=== PATIENT | male | born 1945 | race Caucasian/White ===

== ENCOUNTER 2019-11-13 18:14 | Inpatient (IN) | payer OTHER ==
--- NOTE | 2019-11-13 19:09 | PDOC ---
History of Present Illness - General Chief Complaint: Pain, Acute Stated Complaint: ABDOMINAL PAIN Time Seen by Provider: 11/13/19 19:06 History Source: Patient Exam Limitations: Clinical Condition - History of Present Illness Initial Comments: Hx limited bc patient is a poor historian Per [facility] Supervisor: left facility for dialysis. Amy doesn't know why he was sent here. Patient came straight from dialysis. Bill Camejo is a 73 yo M w a hx of ESRD (M/W/F), AFIB on elliquis, heart failure, anemia of chronic disease, HTN, HLD, constipation, and anxiety who p resents from dialysis after a completed session because he has abdominal pain. The patient states his abdomen has been swelling increasingly for the past week. When asked where is the worst abdominal pain he points to the right lateral/upper quadrant regions in his abdomen and rates the pain as 10/10. He states he had a cat scan done 2 weeks prior which showed he had some type of liver disease but his abdomen has become twice as large in the past 2 weeks. The patient endorses being scared that he has a liver tumor. Patient also reports that he has been experiencing increasingly dark stools over the past 2 weeks described as black in nature. States his stools have also been very soft and he is having loose dark stools 3-5 times per day. Patient repeatedly states that he is very hungry and would like to eat some food but he is scared to eat because of his stomach pain. Denies weight loss, fevers, chills, infections. Denies headache, neck pain, blurry vision, chest pain, SOB, or difficulty breathing. Denies dysuria, frequency, or urgency. PCP: Juan Turner PSH: RUPA AV Fistula Allergies: NKA, NKDA Social Hx: [facility] resident. Denies smoking, drinking, or other substance abuse Advanced Directives: DNR/DNI Past History - Medical History Allergies/Adverse Reactions: Allergies Allergy/AdvReac Type Severity Reaction Status Date / Time No Known Allergies Allergy Verified 11/13/19 18:22 Anemia: Yes Cardiac Disorders: Yes (afib) COPD: No Dialysis: Yes (m,w,f) HTN: Yes Hypercholesterolemia: Yes - Psycho-Social/Smoking History Smoking History: Former smoker Have you smoked in the past 12 months: No Information on smoking cessation initiated: No - Substance Abuse Hx (Audit-C & DAST Scrn) How often the patient has a drink containing alcohol: Never Score: In Men: 4 or > Positive; In Women: 3 or > Positive: 0 Screen Result (Pos requires Nsg. Audit-10AR): Negative In the last yr the pt used illegal drug/Rx for NonMed reason: No Score: Yes response is considered Positive: 0 Screen Result (Positive result requires Nsg. DAST-10): Negative Review of Systems - Review of Systems Able to Perform ROS?: Yes Comments:: CONSTITUTIONAL: Present: Fatigue Absent: fever, no chills EYES: Absent: visual changes ENT: Absent: ear pain, no sore throat CARDIOVASCULAR: Absent: chest pain, no palpitations RESPIRATORY: Absent: cough, no SOB GI: Present: Abdominal pain, nausea, diarrhea Absent: no vomiting, no constipation GENITOURINARY: Absent: dysuria, no frequency, no hematuria MUSKULOSKELETAL: Absent: back pain, no arthralgia, no myalgia SKIN: Absent: rash NEURO: Absent: headache *Physical Exam - Vital Signs Last Vital Signs Temp Pulse Resp BP Pulse Ox 97.4 F L 102 H 20 107/48 L 97 11/13/19 18:22 11/13/19 18:22 11/13/19 18:22 11/13/19 18:22 11/13/19 18:22 - Physical Exam GENERAL: Appears pale and weak. No active distress. Has a large abdomen. LUE AV fistula HEENT: Normocephalic, atraumatic. PERRL, EOM intact. CARDIOVASCULAR: Irregular rhythm. Normal S1, S2. PULMONARY: No evidence of respiratory distress. Lungs clear to auscultation bilaterally. No wheezing, rales or rhonchi. ABDOMEN: The abdomen is distended with Right upper and lateral TTP. There is a fluid wave in the abdomen. The patient has generalized abdominal discomfort but the abdomen has normal bowel sounds, is soft and not peritoneal. No rebound, guarding, or rigidity. EXTREMITIES: Normal ROM in all four extremities. LUE AV fistula SKIN: Warm, dry. Multiple petechial rashes. NEUROLOGICAL: No focal neurological deficits. Rectal Exam: positive: heme negative stool, normal rectal tone, hemorrhoids, other (The patient experiences pain upon finger entry into the rectum. There are external hemorrhoids, no internal hemorrhoids appreciated. The rectal vault has no palpable stool in it. After 3 deep attempts to retrieve stool to send to lab for hemeoccult without success rectal vault residue was placed on the hemeoccult card and sent to laboratory) ED Treatment Course - LABORATORY CBC & Chemistry Diagram: 11/13/19 19:49 11/13/19 19:49 Medical Decision Making - Medical Decision Making Hx limited bc patient is a poor historian [employer] [facility] at [facility] - [phone] Per [facility] Nursing [facility] Supervisor: left facility for dialysis. [facility] doesn't know why he was sent here. Patient came straight from dialysis. Bill Camejo is a 73 yo M w a hx of ESRD (M/W/F), AFIB on elliquis, heart failure, anemia of chronic disease, HTN, HLD, constipation, and anxiety who presents from dialysis after a completed session because he has abdominal pain. The patient states his abdomen has been swelling increasingly for the past week. When asked where is the worst abdominal pain he points to the right lateral/upper quadrant regions in his abdomen and rates the pain as 10/10. He states he had a cat scan done 2 weeks prior which showed he had some type of liver disease but his abdomen has become twice as large in the past 2 weeks. The patient endorses being scared that he has a liver tumor. Patient also reports that he has been experiencing increasingly dark stools over the past 2 weeks described as black in nature. States his stools have also been very soft and he is having loose dark stools 3-5 times per day. Patient repeatedly states that he is very hungry and would like to eat some food but he is scared to eat because of his stomach pain. Denies weight loss, fevers, chills, infections. Denies headache, neck pain, blurry vision, chest pain, SOB, or difficulty breathing. Denies dysuria, frequency, or urgency. Vital Signs Temp Pulse Resp BP Pulse Ox 97.4 F L 102 H 20 107/48 L 97 11/13/19 18:22 11/13/19 18:22 11/13/19 18:22 11/13/19 18:22 11/13/19 18:22 DDx IBNLT: cirrhosis, ascites, SBP, liver metastasis, cholecystitis, dehydration, failure to thrive, metastases, electrolyte/metabolic disturbance, peritonitis, anemia Plan: Labs, CT, analgesia, re-assess EKG: Afib with RVR, ventricular rate of 108, narrow complexes, qrs 98, normal axis, no hypertrophy, no ST elevations or depressions, QTc 514 CBC,CMP WBC 6.8 K/mm3 (4.0-10.0) 11/13/19 19:49 RBC 3.45 M/mm3 (4.00-5.60) L 11/13/19 19:49 Hgb 9.6 GM/dL (11.7-16.9) L 11/13/19 19:49 Hct 31.1 % (35.4-49) L 11/13/19 19:49 MCV 90.0 fl (80-96) 11/13/19 19:49 MCH 27.9 pg (25.7-33.7) 11/13/19 19:49 MCHC 31.0 g/dl (32.0-35.9) L 11/13/19 19:49 RDW 17.8 % (11.9-15.9) H 11/13/19 19:49 Plt Count 180 K/MM3 (134-434) 11/13/19 19:49 MPV 9.5 fl (7.5-11.1) 11/13/19 19:49 Absolute Neuts (auto) 5.4 K/mm3 (1.5-8.0) 11/13/19 19:49 Neutrophils % 79.0 % (42.8-82.8) 11/13/19 19:49 Lymphocytes % 10.4 % (8-40) 11/13/19 19:49 Monocytes % 5.0 % (3.8-10.2) 11/13/19 19:49 Eosinophils % 4.8 % (0-4.5) H 11/13/19 19:49 Basophils % 0.8 % (0-2.0) 11/13/19 19:49 Nucleated RBC % 0 % (0-0) 11/13/19 19:49 Sodium 138 mmol/L (136-145) 11/13/19 19:49 Potassium 3.8 mmol/L (3.5-5.1) 11/13/19 19:49 Chloride 100 mmol/L (98-107) 11/13/19 19:49 Carbon Dioxide 19 mmol/L (21-32) L 11/13/19 19:49 Anion Gap 19 MMOL/L (8-16) H 11/13/19 19:49 BUN 48.1 mg/dL (7-18) H 11/13/19 19:49 Creatinine 7.5 mg/dL (0.55-1.3) H* 11/13/19 19:49 Est GFR (CKD-EPI)AfAm 7.54 11/13/19 19:49 Est GFR (CKD-EPI)NonAf 6.50 11/13/19 19:49 Random Glucose 75 mg/dL (74-106) 11/13/19 19:49 Lactic Acid 6.4 mmol/L (0.4-2.0) H* 11/13/19 19:49 Calcium 8.8 mg/dL (8.5-10.1) 11/13/19 19:49 Magnesium 2.6 mg/dL (1.8-2.4) H 11/13/19 19:49 Total Bilirubin 1.5 mg/dL (0.2-1) H 11/13/19 19:49 AST 310 U/L (15-37) H 11/13/19 19:49 ALT 91 U/L (13-61) H 11/13/19 19:49 Alkaline Phosphatase 857 U/L (45-117) H 11/13/19 19:49 Total Protein 6.3 g/dl (6.4-8.2) L 11/13/19 19:49 Albumin 2.5 g/dl (3.4-5.0) L 11/13/19 19:49 Lipase 268 U/L (73-393) 11/13/19 19:49 - Lactic acid elevated, Patient has abdominal pain, currently in AFIB, will obtain CTA to r/o mesenteric ischemia - Patient needs CTA with contrast despite having elevated Cr. - Patient can undergo dialysis tomorrow as an inpatient CTA: EXAM: ABDOMEN/PELVIS CTA W/WO CONTR HISTORY: Rule out mesenteric ischemia COMPARISON: None. FINDINGS: Lung bases are clear. The visualized cardiac chambers are normal size and configuration. Small to moderate amount of ascites is noted. Innumerable lesions in the liver highly suspicious for metastases. No biliary duct dilation or portal vein thrombosis. Tiny gallstones are noted without gallbladder inflammation. A heterogeneous area in the posterior lateral spleen could represent a lesion or infarct. Severe right renal atrophy is noted with irregular rim-like density in the central collecting system, unclear of dystrophic calcification or possibly surgical material. Normal pancreas, adrenal glands and left kidney. The stomach and abdominal small and large bowel are normal. There is no aortic aneurysm. Moderate retroperitoneal lymphadenopathy is suspicious for metastases. There is also mild to moderate mesenteric adenopathy. Splenic artery vascular calcifications are noted. The pelvic small and large bowel are normal. There is no evidence of appendicitis. The urinary bladder and prostate gland are normal. There is mild pelvic lymphadenopathy. IMPRESSION: Suspected diffuse liver metastases. Probable metastatic retroperitoneal adenopathy with possible metastatic mesen teric and pelvic lymphadenopathy. Small to moderate amount of ascites without abscess or free air. Possible splenic lesion or splenic infarct. Tiny gallstones. Severe right renal atrophy. 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
[2019-11-13] MEDS ORDERED: LACTATED RINGERS SOLUTION 1000 ML INFUS.BAG IV ONE (19:11)
--- NOTE | 2019-11-13 19:14 | PDOC ---
Documentation entered by Rand Roe SCRIBE, acting as scribe for Bebe Miranda MD. Bebe Miranda MD: This documentation has been prepared by the Radha denny Sydney, SCRIBE, under my direction and personally reviewed by me in its entirety. I confirm that the documentation accurately reflects all work, treatment, procedures, and medical decision making performed by me. Attending Attestation - Resident Resident Name: Dhruv Braga - ED Attending Attestation I have performed the following: I have examined & evaluated the patient, The case was reviewed & discussed with the resident, I agree w/resident's findings & plan, Exceptions are as noted - HPI HPI: 11/13/19 19:10 This 73 yo male came from [facility] dialysis because he told staff he has had 1 week of abdominal pain and dark stools .Pt resides at [facility] - Physicial Exam PE: 11/13/19 19:12 Conversant 73 yo male with c/o of dark stools and one week of abdominal distention but is requesting food stating he is hungry. 11/13/19 19:14 head ncat neck supple lungs cta b/l cvs abd distended - Medical Decision Making 11/13/19 19:39 pt is alert but not a good historian . 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
[2019-11-13] MEDS ORDERED: FAMOTIDINE 20 MG/50 ML IVPB 20 MG/50 ML MG IVPB ONE ×3 (20:33→20:40)
[2019-11-13 21:22] LABS: BASO % 0.8 % (0-2.0); EOS % 4.8 % (0-4.5); HEMATOCRIT 31.1 % (35.4-49); HEMOGLOBIN 9.6 GM/dL (11.7-16.9); LYMPH % 10.4 % (8-40); MCH 27.9 pg (25.7-33.7); MEAN PLT VOLUME 9.5 fl (7.5-11.1); PLATELET COUNT 180 K/MM3 (134-434); RBC 3.45 M/mm3 (4.00-5.60); RDW 17.8 % (11.9-15.9); WHITE BLOOD COUNT 6.8 K/mm3 (4.0-10.0)
[2019-11-13 22:02] LABS: ALBUMIN 2.5 g/dl (3.4-5.0); BILIRUBIN,TOTAL 1.5 mg/dL (0.2-1); BLOOD UREA NITROGEN 48.1 mg/dL (7-18); CALCIUM 8.8 mg/dL (8.5-10.1); MAGNESIUM 2.6 mg/dL (1.8-2.4); POTASSIUM 3.8 mmol/L (3.5-5.1); TOT PROT 6.3 g/dl (6.4-8.2)
[2019-11-13 22:06] LABS: CREATININE 7.5 mg/dL (0.55-1.3)
[2019-11-14] MEDS ORDERED: morphine CARPU-JECT 4 MG/1 ML DISP.SYRIN IVPUSH ONE (01:27)
[2019-11-14] MEDS ORDERED: MORPHINE SULFATE 2 MG/ML VIAL ONE ×2 (01:48→06:27)
--- NOTE | 2019-11-14 01:48 | PN ---
Teaching Attending Note Name of Resident: Omega Peters ATTENDING PHYSICIAN STATEMENT I saw and evaluated the patient. I reviewed the resident's note and discussed the case with the resident. I agree with the resident's findings and plan as documented. SUBJECTIVE: Patient is a 73 year old man resident of [facility] with a PMH of ESRD on hemodialysis (M/W/F), Afib (on Eliquis), CHF, ?Developmentally challenged, ?Congenital solitary left kidney, Anemia, HTN, HLD, Constipation and Anxiety who presents from dialysis after a completed session because he has abdominal pain. The patient states his abdomen has been swelling increasingly for the past week. When asked where is the worst abdominal pain he points to the right lateral/uppe r quadrant regions in his abdomen and rates the pain as 10/10. He states he had a CAT scan done 2 weeks prior which showed he had some type of liver disease but his abdomen has become twice as large in the past 2 weeks. He has also been ingesting a lot of Tylenol for the pain. Patient also reports that he has been experiencing increasingly dark stools over the past 2 weeks described as black in nature. States his stools have also been very soft and he is having loose dark stools 3-5 times per day. Patient repeatedly states that he is very hungry and would like to eat some food but he is scared to eat because of his stomach pain. Denies weight loss, fevers, chills, headache, neck pain, blurry vision, chest pain, SOB, difficulty breathing, dysuria, frequency, or urgency. Ex-smoker. Denies alcohol, tobacco or illicit drug use. No sick contacts or recent travels. Has family history of lung cancer in both parents. OBJECTIVE: Alert Vital Signs Period Temp Pulse Resp BP Sys/Calvert Pulse Ox Last 24 Hr 97.4 F 102 20 107/48 97-98 HEENT: No Jaundice, eye redness or discharge, PERRLA, EOMI. Normocephalic, atraumatic. Poor dentition. External ears are normal and hearing is grossly intact. No nasal discharge. Neck: Supple, nontender. No palpable adenopathy or thyromegaly. No JVD Chest: Good effort. Clear to auscultation and percussion. Heart: Regular. No S3, rub or murmur Abdomen: Distended, diffuse tenderness most marked in the epigastrium and RUQ; +hepatosplenomagal; No rebound or guarding. Normal bowel sounds. Ext: Peripheral pulses intact. No leg edema. Left upper arm AV fistula with thrill and bruit; left metatarsal amputation. Skin: Warm and dry. No petechiae, rash or ecchymosis. Neuro: Alert. Oriented x3. CN 2-12 grossly intact. Sensation grossly intact in all four extremities and DTR are symmetric. Psych: Appropriate mood and affect. Good insight. Abnormal Lab Results 11/13/19 11/13/19 11/13/19 19:49 19:49 19:49 RBC 3.45 L Hgb 9.6 L Hct 31.1 L MCHC 31.0 L RDW 17.8 H Eosinophils % 4.8 H Carbon Dioxide 19 L Anion Gap 19 H BUN 48.1 H Creatinine 7.5 H* Lactic Acid 6.4 H* Magnesium 2.6 H Total Bilirubin 1.5 H AST 310 H ALT 91 H Alkaline Phosphatase 857 H Total Protein 6.3 L Albumin 2.5 L Home Medications Medication Instructions Recorded Acetaminophen [Tylenol 8 Hour] 650 mg PO BID 11/14/19 Acetaminophen [Tylenol] 975 mg PO Q8H PRN 11/14/19 Apixaban [Eliquis -] 5 mg PO BID 11/14/19 Ascorbic Acid [Vitamin C] 1,000 mg PO DAILY 11/14/19 Atorvastatin Calcium [Lipitor] 20 mg PO HS 11/14/19 Bupropion HCl [Bupropion HCl Sr] 150 mg PO DAILY 11/14/19 Docusate Sodium [Colace] 300 mg PO HS 11/14/19 Ferrous Sulfate 325 mg PO DAILY 11/14/19 Gabapentin [Neurontin] 300 mg PO DAILY 11/14/19 Loperamide HCl [Imodium -] 2 mg PO DAILY PRN 11/14/19 Oxycodone HCl 10 mg PO Q6H PRN 11/14/19 Polyethylene Glycol 3350 [Miralax 17 gm PO DAILY 11/14/19 (For Daily Use) -] Sennosides [Senna] 8.6 mg PO HS 11/14/19 Sevelamer Carbonate [Renvela] 1,600 mg PO QID 11/14/19 Vitamin B Comp W-C [Nephro-Desi -] 1 tablet PO DAILY 11/14/19 Zinc Sulfate 220 mg PO DAILY 11/14/19 Current Medications Generic Name Dose Route Start Last Admin Trade Name Freq PRN Reason Stop Dose Admin Atorvastatin Calcium 20 mg 11/14/19 22:00 Lipitor - PO HS UDAY Docusate Sodium 300 mg 11/14/19 22:00 Colace - PO HS UDAY Gabapentin 300 mg 11/14/19 10:00 Neurontin - PO DAILY UDAY Piperacillin Sod/Tazobactam 50 mls @ 100 mls/hr 11/14/19 03:30 Sod 2.25 gm/ Dextrose IVPB Q6H-IV UDAY Protocol Vancomycin HCl 1,250 mg/ 250 mls @ 250 mls/2 hr 11/14/19 03:45 Dextrose IVPB 11/14/19 05:44 ONCE ONE Piperacillin Sod/Tazobactam 50 mls @ 100 mls/hr 11/14/19 03:45 11/14/19 03:58 Sod 2.25 gm/ Dextrose IVPB 11/14/19 21:29 100 mls/hr Q6H-IV UDAY Administration Protocol Morphine Sulfate 2 mg 11/14/19 03:46 Morphine Injection - IVPUSH 11/14/19 03:47 ONCE ONE Multivit/Ca Carb/B Cmplx/FA/Prenat 1 tablet 11/14/19 10:00 Nephro-Desi - PO DAILY [facility] Non-Formulary Medication 150 mg 11/14/19 10:00 Bupropion Hcl [Bupropion Hcl Sr] PO DAILY [facility] Non-Formulary Medication 325 mg 11/14/19 10:00 Ferrous Sulfate [Ferrous Sulfate] PO DAILY [facility] Non-Formulary Medication 1,000 mg 11/14/19 10:00 Ascorbic Acid PO DAILY [facility] Oxycodone HCl 10 mg 11/14/19 03:47 Roxicodone - PO Q6H PRN PAIN LEVEL 7 - 10 Polyethylene Glycol 17 gm 11/14/19 10:00 Miralax (For Daily Use) - PO DAILY [facility] Senna tab 11/14/19 22:00 Senna - PO HS [facility] Sevelamer Carbonate 1,600 mg 11/14/19 10:00 Renvela - PO QID UDAY Zinc Sulfate 220 mg 11/14/19 10:00 Zinc Sulfate PO DAILY [facility] ASSESSMENT AND PLAN: 1. Hepatic lesions - possible metastasis/Ascites/ESRD - CT abdomen/pelvis shows "Suspected diffuse liver metastases. Probable metastatic retroperitoneal adenopathy with possible metastatic mesenteric and pelvic lymphadenopathy. Small to moderate amount of ascites without abscess or free air. Possible splenic lesion or splenic infarct. Tiny gallstones. Severe right renal atrophy." CXR shows cardiomegaly with no evidence of acute lung disease. Lactic acidosis is likely type B, due to hepatic lesions, but sepsis due to peritonitis is a concern - especially with low normal BP. Will consult Interventional radiology for diagnostic/therapeutic paracentesis/?lymph node biopsy, do blood cultures, treat with IV Zosyn and Vancomycin (dose-adjusted for GFR), get Acetaminophen level, HIV test, PT/INR, Hepatitis serology, trend LFTs, consult Oncology, ID and GI. Viral testing for COVID-19 ordered and patient placed on airborne, droplet and contact isolation. ER staff prescribed Morphine, Pepcid and IV Ringers lactate for the patient. Will avoid further IV LR in view of liver disease and lactic acidosis. EKG shows Afib at 108/minute and QTc [address]-T wave changes. Will avoid drugs that may prolong QTc. Will continue comprehensive care for all of patients comorbid conditions and consult Nephrology for ESRD care - needs hemodialysis tomorrow in view of severe metabolic acidosis and inability to hydrate aggressively with IV NS. 2. Hypoalbuminemia - Possibly due to combined effects of malnutrition and inflammation associated with comorbid conditions. Will ensure adequate dietary protein intake and also consult radar technician. 3. Anemia - Likely chiefly due to ESRD. Will do basic anemia work up including serial stool guaiacs, reticulocyte count and iron studies. Would benefit from Procrit therapy once iron replete. 4. Hypertension Will restart suitable outpatient antihypertensive drugs when clinically appropriate. Subsequently, will revise regimen to ensure [id number] excellent BP control. Patient counseled on the injurious effects of uncontrolled hypertension. Nonpharmacologic measures to control hypertension like weight loss, salt restriction and exercise stressed. Importance of adherence to treatment regimen and attainment of normotension emphasized. 5. DVT prophylaxis - On Eliquis for Afib - will hold tomorrow for ?procedures and begin ?IV heparin tomorrow. 6. Advance directives - DNR/DNI
[2019-11-14] MEDS ORDERED: CEFTRIAXONE 1,000 MG in DEXTROSE 5%-WATER - 50 ML IVPB ONE (01:59)
[2019-11-14] MEDS ORDERED: CEFTRIAXONE 1 GM in DEXTROSE 5%-WATER - 50 ML IVPB ONE (02:24)
[2019-11-14] MEDS ORDERED: CEFTRIAXONE 1 GM/50 ML BAG ONE (02:28)
--- NOTE | 2019-11-14 03:11 | HP ---
CHIEF COMPLAINT: Abdominal Pain PCP: Dr. Juan Turner Bias Machine Operator: Dr. Kraig Nayak HISTORY OF PRESENT ILLNESS: Pt. is a 73 y.o. M w/ PMHx. of ESRD (M/W/F), Afib (on Eliquis), Anemia (2/2 ESRD and JACQUIE), HTN, HLD, PAD (s/p amputation), Heart Failure?, constipation and anxiety presents from [facility](Lives as [facility]) for abdominal pain. Pt. states he completed his usual 3.5 hours of HD and that his pain is not affected by food, or HD, only positional when he tries to sit up and contracts his abdomen. Pt. states that he has had abdominal pain for over [address] had a CT scan done 2 weeks ago that showed liver lesions? Call placed to [facility] as Pt. is an unreliable historian(states that he cannot read, can only write his name and was made fun of as a kid for developmental delay?) and RN stated that Pt. had ultrasound of liver which showed a liver cyst. RN was unable to say who performed liver US. Pt. has also been complaining pf increasingly dark stools that are now black in nature and happening 3-5x/day. Pt. is unsure how long he has been on Iron supplementation but after chart review Pt. gets IV Venofer (weekly) and Epogen (3x/ week) respectively. Pt. states that he was born with 1 kidney and is unsure of why he developed renal failure. He states he has been on HD for about a year though chart review states he is on HD from at least 2017. Pt. endorses epigastric burning sensation on arrival that got better after medication. Pt. denies any, weight loss, chest pain, shortness of breath, pain on urination(oliguric), fever chills, cough, headache, changes in vision, worsening numbness tingling. Pt. states that he would like to be DNR/DNI. Pt. states he had an unremarkable colonoscopy 5 years ago. Pt. denies history of Hepatitis Pt. states Bonita( his Goddaughter) is his HCP? Guardian? and will make decisions for him in the event that he cannot make decision for himself. Pt. requesting to talk to . ER course was notable for: (1) CBC, CMP, Mag, Phos (2) Famotidine, 500cc LR, 2mg Morphine (3) CTA/P Recent Travel: No as above PAST MEDICAL HISTORY: As above PAST SURGICAL HISTORY: LUE AVF, LLE amputation to metatarsals 1.5 years ago at [facility] Social History: Smoking: States smoked ~1PPD, Quit many, many years ago Alcohol: Denies Drugs: Denies Allergies No Known Allergies Allergy (Verified 11/13/19 18:22) HOME MEDICATIONS: Home Medications Medication Instructions Recorded Acetaminophen [Tylenol 8 Hour] 650 mg PO BID 11/14/19 Acetaminophen [Tylenol] 975 mg PO Q8H PRN 11/14/19 Apixaban [Eliquis -] 5 mg PO BID 11/14/19 Ascorbic Acid [Vitamin C] 1,000 mg PO DAILY 11/14/19 Atorvastatin Calcium [Lipitor] 20 mg PO HS 11/14/19 Bupropion HCl [Bupropion HCl Sr] 150 mg PO DAILY 11/14/19 Docusate Sodium [Colace] 300 mg PO HS 11/14/19 Ferrous Sulfate 325 mg PO DAILY 11/14/19 Gabapentin [Neurontin] 300 mg PO DAILY 11/14/19 Loperamide HCl [Imodium -] 2 mg PO DAILY PRN 11/14/19 Oxycodone HCl 10 mg PO Q6H PRN 11/14/19 Polyethylene Glycol 3350 [Miralax 17 gm PO DAILY 11/14/19 (For Daily Use) -] Sennosides [Senna] 8.6 mg PO HS 11/14/19 Sevelamer Carbonate [Renvela] 1,600 mg PO QID 11/14/19 Vitamin B Comp W-C [Nephro-Desi -] 1 tablet PO DAILY 11/14/19 Zinc Sulfate 220 mg PO DAILY 11/14/19 REVIEW OF SYSTEMS As above PHYSICAL EXAMINATION Vital Signs - 24 hr 11/13/19 11/13/19 11/14/19 18:22 21:57 02:06 Temperature 97.4 F L 97.7 F Pulse Rate 102 H Pulse Rate [ 97 H Left Radial] Respiratory 20 18 Rate Blood Pressure 107/48 L Blood Pressure 96/61 [Right Arm] O2 Sat by Pulse 97 98 98 Oximetry (%) GENERAL: Awake, alert, and fully oriented, in no acute distress. HEAD: Normal with no signs of trauma. EYES: Pupils equal, round and reactive to light, extraocular movements intact, sclera anicteric, conjunctiva clear. No lid lag. EARS, NOSE, THROAT: Ears normal, nares patent, oropharynx clear without exudates. Moist mucous membranes. LUNGS: Breath sounds equal, clear to auscultation bilaterally. No wheezes, and no crackles. No accessory muscle use. HEART: Irregular, normal S1 and S2 without murmur ABDOMEN: Soft, tenderness to palpation in epigastrium (most prominent) and RUQ, distended, dull to percussion hypoactive bowel sounds, no guarding, no rebound, no masses. Marked hepatomegaly (extends to ASIS?) and splenomegaly. MUSCULOSKELETAL: Normal range of motion at all joints. Left foot metarasal amputation. No CVA tenderness. UPPER EXTREMITIES: 2+ radial pulses, warm, well-perfused. No cyanosis. No clubbing. No peripheral edema. LOWER EXTREMITIES: pulses not palpated, cool to touch, No calf tenderness. 1+ edema. NEUROLOGICAL: Normal speech. Normal gait. PSYCHIATRIC: Cooperative. Good eye contact. Appropriate mood and affect. SKIN: Warm, dry, normal turgor, no rashes or lesions noted, normal capillary refill. Laboratory Results - last 24 hr 11/13/19 11/13/19 11/13/19 19:49 19:49 19:49 WBC 6.8 RBC 3.45 L Hgb 9.6 L Hct 31.1 L MCV 90.0 MCH 27.9 MCHC 31.0 L RDW 17.8 H Plt Count 180 MPV 9.5 Absolute Neuts (auto) 5.4 Neutrophils % 79.0 Lymphocytes % 10.4 Monocytes % 5.0 Eosinophils % 4.8 H Basophils % 0.8 Nucleated RBC % 0 Sodium 138 Potassium 3.8 Chloride 100 Carbon Dioxide 19 L Anion Gap 19 H BUN 48.1 H Creatinine 7.5 H* Est GFR (CKD-EPI)AfAm 7.54 Est GFR (CKD-EPI)NonAf 6.50 Random Glucose 75 Lactic Acid 6.4 H* Calcium 8.8 Magnesium 2.6 H Total Bilirubin 1.5 H AST 310 H ALT 91 H Alkaline Phosphatase 857 H Total Protein 6.3 L Albumin 2.5 L Lipase 268 Stool Occult Blood Blood Type Antibody Screen 11/13/19 11/13/19 19:49 19:49 WBC RBC Hgb Hct MCV MCH MCHC RDW Plt Count MPV Absolute Neuts (auto) Neutrophils % Lymphocytes % Monocytes % Eosinophils % Basophils % Nucleated RBC % Sodium Potassium Chloride Carbon Dioxide Anion Gap BUN Creatinine Est GFR (CKD-EPI)AfAm Est GFR (CKD-EPI)NonAf Random Glucose Lactic Acid Calcium Magnesium Total Bilirubin AST ALT Alkaline Phosphatase Total Protein Albumin Lipase Stool Occult Blood Negative Blood Type A NEGATIVE Antibody Screen Negative ASSESSMENT/PLAN: Pt. is a 73 y.o. M w/ PMHx. of ESRD (M/W/F), Afib (on Eliquis), Anemia (2/2 ESRD and JACQUIE), HTN, HLD, PAD (s/p amputation), constipation and anxiety presents from [facility](Lives as [facility]) for abdominal pain. #Abdominal Pain w/ Transaminitis likely secondary to stretching of the hepatic and splenic capsules with referred pain, possibly contribution of ascites, and hypoerfusion during HD; cannot r/o infectious etiology CTAP w/wo contrast: Includes innumerable liver lesions suspicious for metastases, tiny gallstones w/o evidence for cholecystitis, severe R. renal atrophy with dystrophic calcification?, lateral splenic lesion vs. infarct, splenic artery calcification mild to moderate retoperitoneal lymphadenopathy, mild pelvic lymphadenopathy, and small to moderate ascites; f/u official read as I appreciated some colonic wall thickening. GI Consult appreciated for evaluation of liver, liver biopsy? MRI of liver? IR Consult appreciated for therapeutic and diagnostic paracentesis, biopsy of lymph nodes? HOLD Eliquis in AM, will need to determine pending specialist consults if Pt. to be placed on Hep gtt as a bridge until procedure or resume Eliquis Given Ceftriaxone in ED, will start on Zosyn and Vancomycin, renally dosed for positive sepsis criteria (LA: 6.4 and tachycardia); ID Consult appreciated Pain control with home oxycodone f/u Heme/Onc consult for evaluation of Mets and localization of Primary f/u Acetaminophen level (per RN at [facility] Pt. gets Tylenol 975mg Q8H for pain and Tylenol 650 mg scheduled everytime he gets changed f/u Hepatitis Panel f/u PT/INR f/u BCx. f/u [place] #ESRD (MWF) Born with solitary kidney? Pt. received HD Wednesday, however received IV contrast Nephrology consult appreciated, may need HD today Dystrophic calcification noted on CT Scan, Renal Cell Carcinoma? Sarcoma? Instrumentation from a surgical procedure? c/w home medications #Anemia #Afib #HTN #HLD #PAD #Constipation #Anxiety #Hx. of Heart Failure? c/w home medications except Tylenol because of transaminitis EKG: Abib w/ RVR, HR: 103, QTc: 514, no ST segment elevation or depression; avoid QTc prolonging agents Trop Neg f/u Records faxed to [facility] as ED fax machine broken CXR shows cardiomegaly, no acute pathology as Pt. had poor inspiration. #FEN no IVF, given bolus in ED monitor electrolytes and replete as needed Renal Diet #DVT Ppx. Hold Eliquis in anticipation of biopsy, Needs urgent addressing in AM to start Hep gtt or resume AC Eliquis has shown non-inferiority to Dalteparin in trials ([place] 06/2019) Visit type - Emergency Visit Emergency Visit: Yes ED Registration Date: 11/13/19 Care time: The patient presented to the Emergency Department on the above date and was hospitalized for further evaluation of their emergent condition. - New Patient This patient is new to me today: Yes Date on this admission: 11/13/19 - Critical Care Critical Care patient: No ATTENDING PHYSICIAN STATEMENT I saw and evaluated the patient. I reviewed the resident's note and discussed the case with the resident. I agree with the resident's findings and plan as documented. SUBJECTIVE: OBJECTIVE: ASSESSMENT AND PLAN:
[2019-11-14] MEDS ORDERED: PIPERACILLIN/TAZOB 2.25 GM 2.25 GM in DEXTROSE 5%-WATER - 50 ML IVPB SCH ×2 (03:30→21:45)
[2019-11-14] MEDS ORDERED: oxyCODONE HCL 5 MG TABLET PO PRN ×2 (03:44→03:47)
[2019-11-14] MEDS ORDERED: VANCOMYCIN HCL 1,250 MG in DEXTROSE 5%-WATER - 250 ML IVPB ONE (03:45)
[2019-11-14] MEDS ORDERED: MORPHINE SULFATE 2 MG/ML VIAL IVPUSH ONE (03:46)
[2019-11-14] MEDS ORDERED: PIPERACILLIN/TAZOB 2.25 GM 2.25 GM/50 ML BAG IVPB ONE ×2 (03:52→08:14)
[2019-11-14] MEDS: PIPERACILLIN/TAZOB 2.25 GM 2.25 GM in DEXTROSE 5%-WATER - 50 ML IVPB SCH ×4 (03:58→21:49)
[2019-11-14] MEDS ORDERED: VANCOMYCIN 1 GRAM (PRE-DOCKED) 1,000 MG/250 ML BAG IVPB ONE (04:16)
[2019-11-14 07:32] LABS: EOS % 2.3 % (0-4.5); HEMATOCRIT 32.8 % (35.4-49); HEMOGLOBIN 9.8 GM/dL (11.7-16.9); LYMPH % 7.3 % (8-40); MCHC 29.8 g/dl (32.0-35.9); MEAN CELL VOLUME 94.1 fl (80-96); MEAN PLT VOLUME 9.3 fl (7.5-11.1); MONO % 5.1 % (3.8-10.2); NEUT % 84.3 % (42.8-82.8); PLATELET COUNT 171 K/MM3 (134-434); RBC 3.49 M/mm3 (4.00-5.60); RDW 17.9 % (11.9-15.9); WHITE BLOOD COUNT 8.9 K/mm3 (4.0-10.0)
[2019-11-14 07:45] LABS: INR 2.72 (0.83-1.09); PROTHROMBIN TIME (PATIENT) 32.4 SEC (9.7-13.0)
[2019-11-14 07:56] LABS: ALBUMIN 2.4 g/dl (3.4-5.0); BILIRUBIN,TOTAL 1.2 mg/dL (0.2-1); BLOOD UREA NITROGEN 52.2 mg/dL (7-18); CALCIUM 8.6 mg/dL (8.5-10.1); MAGNESIUM 2.7 mg/dL (1.8-2.4); PHOSPHOROUS 5.6 mg/dL (2.5-4.9); POTASSIUM 4.4 mmol/L (3.5-5.1)
[2019-11-14 08:04] LABS: CREATININE 8.2 mg/dL (0.55-1.3)
--- NOTE | 2019-11-14 08:14 | CON.GI ---
Consult Consult Specialty:: GI Referred by:: Hospitalist Service Reason for Consultation:: Abd. Pain - History of Present Illness Chief Complaint: Abd. pain History of Present Illness: 73M admitted to evaluation of abdominal pain. Mr. Camejo states that this has been occurring for quite some time. He alludes to having an US performed while in [facility] that showed "spots on the liver". Per H&P, Nurse at [facility] stated that as cyst was seen. Denies diminished appetite. Pain is not post prandial. States that his stool has been dark for a while and is maintained on oral iron. Noted guaiac negative from specimen sent to lab. He takes eliquis, which he believes he took yesterday. There is no family history of colorectal cacner or other GI malignancy. CTA was performed revealing a liver with innumerable lesions. The radiologist described this as almost complete replacement of the liver with metastatic disease. Upper abdominal lymphadenopathy seen as well and areas of colon wall thickening of unclear etiology. Bill states that he had a colonoscopy 5 years ago that was OK. He does not want further endoscopic evaluations, wants to be DNR/DNI and is OK having liver biopsy performed. - History Source History Provided By: Patient, Medical Record Limitations to Obtaining History: No Limitations - Past Medical History Cardio/Vascular: Yes: AFIB, HTN Renal/: Yes: Other (ESRD on HD M/W/F) - Past Surgical History Additional Surgical History: Left foot toe amputations - Alcohol/Substance Use Hx Alcohol Use: Yes (prior social use) History of Substance Use: reports: None - Smoking History Smoking history: Former smoker Have you smoked in the past 12 months: No - Social History Usual Living Arrangement: [facility] ADL: Support Services Occupation: Worked at [employer] Place of : [employer] History of Recent Travel: No Home Medications - Allergies Allergies/Adverse Reactions: Allergies Allergy/AdvReac Type Severity Reaction Status Date / Time No Known Allergies Allergy Verified 11/13/19 18:22 - Home Medications Home Medications: Ambulatory Orders Acetaminophen [Tylenol 8 Hour] 650 mg PO BID 11/14/19 Acetaminophen [Tylenol] 975 mg PO Q8H PRN 11/14/19 Apixaban [Eliquis -] 5 mg PO BID 11/14/19 Ascorbic Acid [Vitamin C] 1,000 mg PO DAILY 11/14/19 Atorvastatin Calcium [Lipitor] 20 mg PO HS 11/14/19 Bupropion HCl [Bupropion HCl Sr] 150 mg PO DAILY 11/14/19 Docusate Sodium [Colace] 300 mg PO HS 11/14/19 Ferrous Sulfate 325 mg PO DAILY 11/14/19 Gabapentin [Neurontin] 300 mg PO DAILY 11/14/19 Loperamide HCl [Imodium -] 2 mg PO DAILY PRN 11/14/19 Oxycodone HCl 10 mg PO Q6H PRN 11/14/19 Polyethylene Glycol 3350 [Miralax (For Daily Use) -] 17 gm PO DAILY 11/14/19 Sennosides [Senna] 8.6 mg PO HS 11/14/19 Sevelamer Carbonate [Renvela] 1,600 mg PO QID 11/14/19 Vitamin B Comp W-C [Nephro-Desi -] 1 tablet PO DAILY 11/14/19 Zinc Sulfate 220 mg PO DAILY 11/14/19 Family Medical History Other Family History: Mother: : 100: Old age. Father: : 65: Lung Ca. Sister: : 74: Lung Ca. No children. No family history of colorectal cancer or other GI malignancy Review of Systems - Review of Systems Constitutional: denies: Chills, Unintentional Wgt. Loss Cardiovascular: denies: Chest Pain Respiratory: denies: Cough Gastrointestinal: reports: Abdominal Pain, Constipation. denies: Diarrhea, Rectal Bleeding Physical Exam-GI Vital Signs: Vital Signs Temperature 97.5 F L 11/14/19 06:00 Pulse Rate 108 H 11/14/19 07:32 Respiratory Rate 18 11/14/19 07:32 Blood Pressure 97/57 L 11/14/19 07:32 O2 Sat by Pulse Oximetry (%) 97 11/14/19 07:32 Constitutional: Yes: Calm Eyes: No: Sclera Icterus HENT: Yes: Drooling Cardiovascular: Yes: Pulse Irregular Respiratory: Yes: Diminished (At bases bilaterally with poor inspiratory effort) Gastrointestinal Inspection: No: Distention ...Auscultate: Yes: Normoactive Bowel Sounds ...Palpate: Yes: Hepatomegaly (indurated irregular liver), Soft, Tenderness (TTP RUQ) ...Percussion: No: Tympanitic ...Rectal Exam: Yes: Other (No external lesions, no masses, no stool/b lood/melena) Extremities: Yes: Other (Left foot with TMA) Edema: No (No LE edema) Neurological: Yes: Alert Labs: CBC, BMP 11/14/19 06:11 11/14/19 06:11 INR, PTT INR 2.72 (0.83-1.09) H 11/14/19 06:11 Hepatic Panel Total Bilirubin 1.2 mg/dL (0.2-1) H 11/14/19 06:11 AST 339 U/L (15-37) H 11/14/19 06:11 ALT 92 U/L (13-61) H 11/14/19 06:11 Alkaline Phosphatase 743 U/L (45-117) H 11/14/19 06:11 Albumin 2.4 g/dl (3.4-5.0) L 11/14/19 06:11 Imaging - Results Cat Scan: Report Reviewed, Image Reviewed Problem List - Problems (1) Metastasis Assessment/Plan: Significant metastatic disease of the liver: Liver chemistry pattern of elevated ALP significantly out of proportion to bilirubin reflective of the liver's tumor burden as opposed to obstructive biliary process Advise: Oncology evaluation Tumor markers: CEA, AFP, CA-19-9 Agreeable to liver biopsy when Eliquis effect has worn off Code(s): C79.9 - SECONDARY MALIGNANT NEOPLASM OF UNSPECIFIED SITE Qualifiers: Area of secondary neoplastic involvement: retroperitoneum Qualified Cod e(s): 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 Unclear what baseline hemoglobin is. He does not want endoscopic evaluations. No overt bleeding on exam. Protonix 20mg once daily Problems reviewed: Yes Code(s): D64.9 - ANEMIA, UNSPECIFIED
[2019-11-14] MEDS ORDERED: ASCORBIC ACID 1,000 MG TABLET ONE (08:15)
[2019-11-14] MEDS ORDERED: FERROUS SO4 325 MG TABLET (FP) ONE (08:16)
[2019-11-14] MEDS ORDERED: ZINC SULFATE 220 MG CAPSULE (FP) ONE (08:16)
[2019-11-14] MEDS ORDERED: GABAPENTIN 100 MG CAPSULE ONE (08:16)
[2019-11-14] MEDS: SEVELAMER CARBONATE 800 MG TAB (FP) PO SCH ×4 (09:00→22:08)
[2019-11-14] MEDS: POLYETHYLENE GLYCOL 3350 119 GM BTL PO SCH (09:01)
[2019-11-14] MEDS: FERROUS SO4 325 MG TABLET (FP) PO SCH (09:01)
[2019-11-14] MEDS: ZINC SULFATE 220 MG CAPSULE (FP) PO SCH (09:02)
[2019-11-14] MEDS: VITAMIN B COMP W-C 1 EA TABLET (NEPHRO-VITE) PO SCH (09:02)
[2019-11-14] MEDS: GABAPENTIN 300 MG CAPSULE PO SCH (09:02)
[2019-11-14] MEDS: ASCORBIC ACID 1,000 MG TABLET PO SCH (09:02)
[2019-11-14] MEDS ORDERED: PATIENT'S OWN MEDICATION (NON-FORMULARY) (Ferrous Sulfate [Ferrous Sulfate] 325 MG) PO SCH (10:00)
[2019-11-14] MEDS ORDERED: ASCORBIC ACID 1000 MG PO SCH (10:00)
[2019-11-14] MEDS ORDERED: PATIENT'S OWN MEDICATION (NON-FORMULARY) (Bupropion Hcl [Bupropion Hcl Sr] 150 MG) PO SCH (10:00)
--- NOTE | 2019-11-14 10:13 | EKG ---
Test Reason : Blood Pressure : / mmHG Vent. Rate : 108 BPM Atrial Rate : 234 BPM P-R Int : 000 ms QRS Dur : 098 ms QT Int : 384 ms P-R-T Axes : 000 065 010 degrees QTc Int : 514 ms ATRIAL FIBRILLATION WITH RAPID VENTRICULAR RESPONSE NONSPECIFIC T WAVE ABNORMALITY ABNORMAL ECG NO PREVIOUS ECGS AVAILABLE Confirmed by Willy Iverson MD ([id number]) on 11/14/2019 10:12:32 AM Referred By: Confirmed By:Willy Iverson MD
--- NOTE | 2019-11-14 14:15 | PN ---
Progress Note, Physician Chief Complaint: Abdominal pain History of Present Illness: NAD denies any pain c/o heartburn Seen by GI CTAP multiple liver lesions likely metastatic disease - Current Medication List Current Medications: Active Medications Ascorbic Acid (Vitamin C) 1,000 mg PO DAILY [facility] Last Admin: 11/14/19 09:02 Dose: 1,000 mg Documented by: Bupropion HCl (Wellbutrin Xl -) 150 mg PO DAILY [facility] Last Admin: 11/14/19 09:02 Dose: 150 mg Documented by: Docusate Sodium (Colace -) 300 mg PO HS [facility] Ferrous Sulfate (Feosol -) 325 mg PO DAILY [facility] Last Admin: 11/14/19 09:01 Dose: 325 mg Documented by: Gabapentin (Neurontin -) 300 mg PO DAILY [facility] Last Admin: 11/14/19 09:02 Dose: 300 mg Documented by: Piperacillin Sod/Tazobactam (Sod 2.25 gm/ Dextrose) 50 mls @ 100 mls/hr IVPB Q6H-IV [facility]; Protocol Piperacillin Sod/Tazobactam (Sod 2.25 gm/ Dextrose) 50 mls @ 100 mls/hr IVPB Q6H-IV [facility]; Protocol Stop: 11/14/19 21:29 Last Admin: 11/14/19 09:01 Dose: 100 mls/hr Documented by: Multivit/Ca Carb/B Cmplx/FA/Prenat (Nephro-Desi -) 1 tablet PO DAILY [facility] Last Admin: 11/14/19 09:02 Dose: 1 tablet Documented by: Oxycodone HCl (Roxicodone -) 10 mg PO Q6H PRN PRN Reason: PAIN LEVEL 7 - 10 Polyethylene Glycol (Miralax (For Daily Use) -) 17 gm PO DAILY [facility] Last Admin: 11/14/19 09:01 Dose: Not Given Documented by: Senna (Senna -) 2 tab PO HS [facility] Sevelamer Carbonate (Renvela -) 1,600 mg PO TIDCM [facility] Last Admin: 11/14/19 09:00 Dose: 1,600 mg Documented by: Sevelamer Carbonate (Renvela -) 1,600 mg PO 2100 [facility] Zinc Sulfate (Orazinc -) 220 mg PO DAILY [facility] Last Admin: 11/14/19 09:02 Dose: 220 mg Documented by: - Objective Vital Signs: Vital Signs Temperature 98.0 F 11/14/19 10:58 Pulse Rate 101 H 11/14/19 10:58 Respiratory Rate 17 11/14/19 11:53 Blood Pressure 111/47 L 11/14/19 10:58 O2 Sat by Pulse Oximetry (%) 98 11/14/19 11:53 Constitutional: Yes: Well Nourished, No Distress, Calm Cardiovascular: Yes: Regular Rate and Rhythm Respiratory: Yes: Regular, CTA Bilaterally Gastrointestinal: Yes: Normal Bowel Sounds, Soft, Ascites, Tenderness (diffuse) Genitourinary: Yes: WNL Musculoskeletal: Yes: WNL Extremities: Yes: Amputation (left TMA) Edema: No Peripheral Pulses WNL: Yes Neurological: Yes: Alert, Oriented Psychiatric: Yes: Alert, Oriented Labs: CBC, BMP 11/14/19 06:11 11/14/19 06:11 INR, PTT INR 2.72 (0.83-1.09) H 11/14/19 06:11 Problem List - Problems (1) Liver metastasis Assessment/Plan: -Oncology consult -Liver biopsy -GI consult -Tumor markers -MRI abd Problems reviewed: Yes Code(s): C78.7 - SECONDARY MALIG NEOPLASM OF LIVER AND INTRAHEPATIC BILE DUCT (2) Abdominal pain Assessment/Plan: -PPI -Pain management with acetaminophen Problems reviewed: Yes Code(s): R10.9 - UNSPECIFIED ABDOMINAL PAIN Qualifiers: Abdominal location: generalized Qualified Code(s): R10.84 - Generalized abdominal pain (3) Anemia Assessment/Plan: -Likely 2/2 to liver disease + CKD -Check B12, thyroid+ iron -Stool OB negative -Monitor trend, transfuse only if Hg<7.0 to avoid fluid overload Problems reviewed: Yes Code(s): D64.9 - ANEMIA, UNSPECIFIED Assessment/Plan See problem list
[2019-11-14] MEDS: PANTOPRAZOLE 40 MG TABLET PO SCH (15:07)
--- NOTE | 2019-11-14 17:25 | CON.NEP ---
Consult Consult Specialty:: Nephrology Referred by:: Franklin Ray NP Reason for Consultation:: ESRD on HD - History of Present Illness Chief Complaint: Abdominal pain History of Present Illness: This is a 73 year old male with with history of ESRD on HD (MWF), atrial fibrilation on anticoagulation, hypertension, hyperlipidemia, anemia, heart failure presented with abdominal pain and found to have multiple masses on his liver. Last dialysis was yesterday. He is awake and alert. Continues to report abdominal pain on the right side of the abdomen. Denies any N/V/D. No chest pain or shortness of breath. No leg swelling. S/p contrast exposure this admission. - History Source History Provided By: Patient Limitations to Obtaining History: No Limitations - Past Medical History Cardio/Vascular: Yes: AFIB, HTN Renal/: Yes: Other (ESRD on HD M/W/F) - Past Surgical History Additional Surgical History: Left foot toe amputations - Alcohol/Substance Use Hx Alcohol Use: Yes (prior social use) History of Substance Use: reports: None - Smoking History Smoking history: Former smoker Have you smoked in the past 12 months: No - Social History Usual Living Arrangement: Prison ADL: Support Services Occupation: Worked at [employer] History of Recent Travel: No Home Medications - Allergies Allergies/Adverse Reactions: Allergies Allergy/AdvReac Type Severity Reaction Status Date / Time No Known Allergies Allergy Verified 11/13/19 18:22 - Home Medications Home Medications: Ambulatory Orders Acetaminophen [Tylenol 8 Hour] 650 mg PO BID 11/14/19 Acetaminophen [Tylenol] 975 mg PO Q8H PRN 11/14/19 Apixaban [Eliquis -] 5 mg PO BID 11/14/19 Ascorbic Acid [Vitamin C] 1,000 mg PO DAILY 11/14/19 Atorvastatin Calcium [Lipitor] 20 mg PO HS 11/14/19 Bupropion HCl [Bupropion HCl Sr] 150 mg PO DAILY 11/14/19 Docusate Sodium [Colace] 300 mg PO HS 11/14/19 Ferrous Sulfate 325 mg PO DAILY 11/14/19 Gabapentin [Neurontin] 300 mg PO DAILY 11/14/19 Loperamide HCl [Imodium -] 2 mg PO DAILY PRN 11/14/19 Oxycodone HCl 10 mg PO Q6H PRN 11/14/19 Polyethylene Glycol 3350 [Miralax (For Daily Use) -] 17 gm PO DAILY 11/14/19 Sennosides [Senna] 8.6 mg PO HS 11/14/19 Sevelamer Carbonate [Renvela] 1,600 mg PO QID 11/14/19 Vitamin B Comp W-C [Nephro-Desi -] 1 tablet PO DAILY 11/14/19 Zinc Sulfate 220 mg PO DAILY 11/14/19 Family Medical History Family History: Unremarkable Review of Systems - Review of Systems Constitutional: reports: No Symptoms Eyes: reports: No Symptoms HENT: reports: No Symptoms, Ringing in Ears Neck: reports: No Symptoms Cardiovascular: reports: No Symptoms Respiratory: reports: No Symptoms Gastrointestinal: reports: Abdominal Pain. denies: Constipation, Diarrhea, Rectal Bleeding, Vomiting, Vomiting Blood Genitourinary: reports: No Symptoms Neurological: reports: No Symptoms Nephrology Consult - Height Height: 6 ft - Weight Weight: 102.058 kg - BMI Body Mass Index (BMI): 30.5 - Lab Results CBC,BMP: CBC, BMP 11/14/19 06:11 11/14/19 06:11 Anion Gap: Anion Gap Anion Gap 19 MMOL/L (8-16) H 11/14/19 06:11 - Imaging Cat Scan: Report Reviewed - Physical Examination Vital Signs: Vital Signs Temperature 98.0 F 11/14/19 10:58 Pulse Rate 101 H 11/14/19 10:58 Respiratory Rate 17 11/14/19 11:53 Blood Pressure 111/47 L 11/14/19 10:58 O2 Sat by Pulse Oximetry (%) 98 11/14/19 11:53 Constitutional: Yes: No Distress, Calm Eyes: Yes: Conjunctiva Clear HENT: Yes: Atraumatic Neck: Yes: Supple Cardiovascular: Yes: Regular Rate and Rhythm Respiratory: Yes: Regular, CTA Bilaterally Gastrointestinal: Yes: Soft, Distention, Tenderness Access for Hemodialysis: AV Fistula Extremities: Yes: Amputation. No: Cool, Cyanosis Edema: No Neurological: Yes: Alert Assessment/Plan 73 year old male with with history of ESRD on HD (MWF), atrial fibrila tion on anticoagulation, hypertension, hyperlipidemia, anemia, heart failure presented with abdominal pain and found to have multiple masses on his liver. Last dialysis was yesterday. 1. ESRD on HD 2. Abdominal pain 3. Suspected metastatic disease to the liver 4. Anemia in setting of CKD 5. Hypertension 6. Hyperlipidemia 7. Hx of HF 8. Renal osteodystrophy No acute need for dialysis today. Despite IV contrast pt has no evidence of fluid overload that woul warrant dialysis today. Will arrange for dialysis tomorrow with [facility] as tolerated. Renal diet if pt tolerates. Continue work up of liver lesion, planned for liver biopsy GI and Oncology follow up Hgb is < 10, will give BRAIN with dialysis BP is within normal limits off antihypertensives. Continue renvela with meals Thank you Cory Bowden DO
--- NOTE | 2019-11-14 19:04 | CON.HO ---
Consult Consult Specialty:: Medical Oncology Reason for Consultation:: Multiple liver lesions - History of Present Illness History of Present Illness: 73 y/o gentleman admitted for evaluation of abdominal pain. He alluded to having an US performed while in [facility] that showed "spots on the liver". He takes eliquis (apixaban), which he believes he took yesterday. There is no family history of colorectal cancer or other GI malignancy. CTA was performed revealing a liver with innumerable lesions. The radiologist described this as almost complete replacement of the liver with metastatic disease. Upper abdominal lymphadenopathy seen as well and areas of colon wall thickening of unclear etiology. Medical Oncology consulted for liever lesions and apixaban management. - Past Medical History Cardio/Vascular: Yes: AFIB, HTN Renal/: Yes: Other (ESRD on HD M/W/F) - Past Surgical History Additional Surgical History: Left foot toe amputations - Alcohol/Substance Use Hx Alcohol Use: Yes (prior social use) History of Substance Use: reports: None - Smoking History Smoking history: Former smoker Have you smoked in the past 12 months: No - Social History Usual Living Arrangement: [facility] ADL: Support Services Occupation: Worked at [employer], [place] History of Recent Travel: No Home Medications - Allergies Allergies/Adverse Reactions: Allergies Allergy/AdvReac Type Severity Reaction Status Date / Time No Known Allergies Allergy Verified 11/13/19 18:22 - Home Medications Home Medications: Ambulatory Orders Acetaminophen [Tylenol 8 Hour] 650 mg PO BID 11/14/19 Acetaminophen [Tylenol] 975 mg PO Q8H PRN 11/14/19 Apixaban [Eliquis -] 5 mg PO BID 11/14/19 Ascorbic Acid [Vitamin C] 1,000 mg PO DAILY 11/14/19 Atorvastatin Calcium [Lipitor] 20 mg PO HS 11/14/19 Bupropion HCl [Bupropion HCl Sr] 150 mg PO DAILY 11/14/19 Docusate Sodium [Colace] 300 mg PO HS 11/14/19 Ferrous Sulfate 325 mg PO DAILY 11/14/19 Gabapentin [Neurontin] 300 mg PO DAILY 11/14/19 Loperamide HCl [Imodium -] 2 mg PO DAILY PRN 11/14/19 Oxycodone HCl 10 mg PO Q6H PRN 11/14/19 Polyethylene Glycol 3350 [Miralax (For Daily Use) -] 17 gm PO DAILY 11/14/19 Sennosides [Senna] 8.6 mg PO HS 11/14/19 Sevelamer Carbonate [Renvela] 1,600 mg PO QID 11/14/19 Vitamin B Comp W-C [Nephro-Desi -] 1 tablet PO DAILY 11/14/19 Zinc Sulfate 220 mg PO DAILY 11/14/19 Review of Systems - Review of Systems Constitutional: reports: No Symptoms Eyes: reports: No Symptoms HENT: reports: No Symptoms Neck: reports: No Symptoms Cardiovascular: reports: No Symptoms Respiratory: reports: No Symptoms Gastrointestinal: reports: No Symptoms Genitourinary: reports: No Symptoms Musculoskeletal: reports: No Symptoms Integumentary: reports: No Symptoms Neurological: reports: No Symptoms Physical Exam Vital Signs: Vital Signs Temperature 98.0 F 11/14/19 10:58 Pulse Rate 101 H 11/14/19 10:58 Respiratory Rate 17 11/14/19 11:53 Blood Pressure 111/47 L 11/14/19 10:58 O2 Sat by Pulse Oximetry (%) 98 11/14/19 11:53 Constitutional: Yes: Well Nourished, No Distress, Calm Eyes: Yes: WNL, Conjunctiva Clear, EOM Intact HENT: Yes: WNL, Atraumatic, Normocephalic Neck: Yes: WNL, Supple, Trachea Midline Cardiovascular: Yes: WNL, Regular Rate and Rhythm Respiratory: Yes: WNL, Regular, CTA Bilaterally Gastrointestinal: Yes: Palpable Mass (RUQ) Renal/: Yes: WNL Musculoskeletal: Yes: WNL Integumentary: Yes: WNL Neurological: Yes: WNL Labs: CBC, BMP 11/14/19 06:11 11/14/19 06:11 Assessment/Plan 73 y/o gentleman admitted to evaluation of abdominal pain. He alludes to having an US performed while in [facility] that showed "spots on the liver". He takes eliquis, which he believes he took yesterday. There is no family history of colorectal cacner or other GI malignancy. CTA was performed revealing a liver with innumerable lesions. The radiologist described this as almost complete replacement of the liver with metastatic disease. Upper abdominal lymphadenopathy seen as well and areas of colon wall thickening of unclear etiology. Medical Oncology consulted for liver lesions and apixaban management. Recommend: 1) Patient willing to undergo liver biopsy (but no colonoscopy). 2) He mentioned used Apixaban yesterday but does not recall the time. He should be off Apixaban 48 hrs (2 full days) before the liver biopsy. Please send [facility] Solid Tumor Molecular Panel (or equivalent) 3) Agree and elissa GI consult and tumor markers sent (AFP, CEA, CA19-9). 4) Thank you very much for this consultation.
[2019-11-14] MEDS ORDERED: SODIUM CHLORIDE 250 ML IV STA (19:23)
[2019-11-14] MEDS ORDERED: ATORVASTATIN CA 20 MG TABLET (FP) PO SCH (22:00)
[2019-11-14] MEDS: DOCUSATE SODIUM 100 MG CAPSULE (FP) PO SCH (22:08)
[2019-11-14] MEDS: SENNOSIDES 8.6MG TABLET (FP) PO SCH (22:08)
[2019-11-15] MEDS ORDERED: ALBUTEROL SO4 2.5/IPRATROPIUM 0.5 INH SOL 3 ML VIAL.NEB. NEB ONE (02:03)
[2019-11-15] MEDS ORDERED: SODIUM CHLORIDE 250 ML IV STA (02:04)
[2019-11-15] MEDS ORDERED: SODIUM CHLORIDE 1,000 ML IV SCH (02:15)
[2019-11-15] MEDS: SEVELAMER CARBONATE 800 MG TAB (FP) PO SCH ×4 (08:24→21:31)
[2019-11-15] MEDS: ZINC SULFATE 220 MG CAPSULE (FP) PO SCH (10:22)
[2019-11-15] MEDS: GABAPENTIN 300 MG CAPSULE PO SCH (10:23)
[2019-11-15] MEDS: PANTOPRAZOLE 40 MG TABLET PO SCH (10:23)
[2019-11-15] MEDS: FERROUS SO4 325 MG TABLET (FP) PO SCH (10:24)
[2019-11-15] MEDS: ASCORBIC ACID 1,000 MG TABLET PO SCH (10:25)
[2019-11-15] MEDS: POLYETHYLENE GLYCOL 3350 119 GM BTL PO SCH (10:25)
[2019-11-15] MEDS: VITAMIN B COMP W-C 1 EA TABLET (NEPHRO-VITE) PO SCH (10:26)
--- NOTE | 2019-11-15 11:46 | PN ---
Progress Note, Physician Chief Complaint: Abdominal pain History of Present Illness: NAD denies any pain c/o heartburn Seen by GI CTAP multiple liver lesions likely metastatic disease Awaiting IR to perform liver biopsy Last Eliquis dose on 11/13/19 MRI abd done- awaiting results - Current Medication List Current Medications: Active Medications Ascorbic Acid (Vitamin C) 1,000 mg PO DAILY [facility] Last Admin: 11/15/19 10:25 Dose: 1,000 mg Documented by: Bupropion HCl (Wellbutrin Xl -) 150 mg PO DAILY [facility] Last Admin: 11/15/19 10:25 Dose: 150 mg Documented by: Docusate Sodium (Colace -) 300 mg PO HS [facility] Last Admin: 11/14/19 22:08 Dose: 300 mg Documented by: Enoxaparin Sodium (Lovenox -) 100 mg SQ Q12H [facility] Epoetin Matt-epbx (Retacrit) 4,000 unit IVPUSH ONCE ONE Stop: 11/15/19 08:01 Ferrous Sulfate (Feosol -) 325 mg PO DAILY [facility] Last Admin: 11/15/19 10:24 Dose: 325 mg Documented by: Gabapentin (Neurontin -) 300 mg PO DAILY [facility] Last Admin: 11/15/19 10:23 Dose: 300 mg Documented by: Piperacillin Sod/Tazobactam (Sod 2.25 gm/ Dextrose) 50 mls @ 100 mls/hr IVPB Q6H-IV [facility]; Protocol Sodium Chloride (Normal Saline -) 250 mls @ 3,000 mls/hr IV PRN PRN PRN Reason: Hypotension during Dialysis Stop: 11/15/19 17:26 Sodium Chloride (Normal Saline -) 1,000 mls @ 50 mls/hr IV ASDIR [facility] Stop: 11/16/19 02:10 Last Admin: 11/15/19 04:30 Dose: 50 mls/hr Documented by: Multivit/Ca Carb/B Cmplx/FA/Prenat (Nephro-Desi -) 1 tablet PO DAILY [facility] Last Admin: 11/15/19 10:26 Dose: 1 tablet Documented by: Oxycodone HCl (Roxicodone -) 10 mg PO Q6H PRN PRN Reason: PAIN LEVEL 7 - 10 Pantoprazole Sodium (Protonix -) 40 mg PO DAILY [facility] Last Admin: 11/15/19 10:23 Dose: 40 mg Documented by: Polyethylene Glycol (Miralax (For Daily Use) -) 17 gm PO DAILY [facility] Last Admin: 11/15/19 10:25 Dose: 17 gm Documented by: Senna (Senna -) 2 tab PO HS [facility] Last Admin: 11/14/19 22:08 Dose: 2 tab Documented by: Sevelamer Carbonate (Renvela -) 1,600 mg PO TIDCM [facility] Last Admin: 11/15/19 08:24 Dose: 1,600 mg Documented by: Sevelamer Carbonate (Renvela -) 1,600 mg PO 2100 [facility] Last Admin: 11/14/19 22:08 Dose: 1,600 mg Documented by: Zinc Sulfate (Orazinc -) 220 mg PO DAILY [facility] Last Admin: 11/15/19 10:22 Dose: 220 mg Documented by: - Objective Vital Signs: Vital Signs Temperature 97.5 F L 11/15/19 05:38 Pulse Rate 114 H 11/15/19 05:38 Respiratory Rate 20 11/15/19 05:38 Blood Pressure 91/43 L 11/15/19 05:38 O2 Sat by Pulse Oximetry (%) 98 11/14/19 21:00 Constitutional: Yes: Well Nourished, No Distress, Calm Cardiovascular: Yes: Regular Rate and Rhythm Respiratory: Yes: Regular, CTA Bilaterally Gastrointestinal: Yes: Normal Bowel Sounds, Soft, Abdomen, Obese, Ascites Genitourinary: Yes: WNL Musculoskeletal: Yes: Muscle Weakness Extremities: Yes: WNL Edema: No Peripheral Pulses WNL: Yes Neurological: Yes: Alert, Oriented Psychiatric: Yes: Alert, Oriented Labs: CBC, BMP 11/14/19 06:11 11/14/19 06:11 INR, PTT INR 2.72 (0.83-1.09) H 11/14/19 06:11 Problem List - Problems (1) Liver metastasis Assessment/Plan: -Oncology consult -Liver biopsy -GI consult -Tumor markers -MRI abd results pending -INR needs to be below 1.5 -Vit K 5 mg po once -repeat INR later today and in AM Problems reviewed: Yes Code(s): C78.7 - SECONDARY MALIG NEOPLASM OF LIVER AND INTRAHEPATIC BILE DUCT (2) Abdominal pain Assessment/Plan: -PPI -Pain management with acetaminophen Problems reviewed: Yes Code(s): R10.9 - UNSPECIFIED ABDOMINAL PAIN Qualifiers: Abdominal location: generalized Qualified Code(s): R10.84 - Generalized abdominal pain (3) Anemia Assessment/Plan: -Likely 2/2 to liver disease + CKD -B12, thyroid+ iron unremarkable -Stool OB negative -Monitor trend, transfuse only if Hg<7.0 to avoid fluid overload Problems reviewed: Yes Code(s): D64.9 - ANEMIA, UNSPECIFIED Assessment/Plan See problem list
[2019-11-15] MEDS ORDERED: PHYTONADIONE 5 MG TABLET PO ONE (13:00)
[2019-11-15] MEDS: ENOXAPARIN NA (PORCINE) 100 MG/1 ML DISP.SYRIN SQ SCH (13:32)
[2019-11-15] MEDS ORDERED: EPOETIN ALFA-EPBX 4,000 UNIT/ML VIAL IVPUSH ONE (16:15)
--- NOTE | 2019-11-15 16:18 | PN.GI ---
GI Progress Note Subjective: no new complaints - pt was seen in HD today - chart reviewed - Objective Vital Signs: Vital Signs Temperature 97.5 F L 11/15/19 10:30 Pulse Rate 72 11/15/19 10:30 Respiratory Rate 14 11/15/19 10:30 Blood Pressure 117/65 11/15/19 10:30 O2 Sat by Pulse Oximetry (%) 98 11/14/19 21:00 Constitutional: No Distress, Calm HENT: Yes: WNL Cardiovascular: Yes: WNL Respiratory: Yes: WNL, Regular, CTA Bilaterally Gastrointestinal Inspection: Yes: WNL, Other (not tender , not distended) ...Auscultate: Yes: Normoactive Bowel Sounds Extremities: Yes: WNL Edema: No Labs: CBC, BMP 11/14/19 06:11 11/14/19 06:11 INR, PTT INR 2.72 (0.83-1.09) H 11/14/19 06:11 Problem List - Problems (1) Abdominal pain Assessment/Plan: mri reviewed - highly suggestive of infiltrative disease ; IR guided biopsy off anticoagulation for tissue sample and diagnosis; CEA elevated as well as CA-[id number]. trend lft daily f/u liver serology for chronic liver disease oncology f/u Code(s): R10.9 - UNSPECIFIED ABDOMINAL PAIN Qualifiers: Abdominal location: generalized Qualified Code(s): R10.84 - Generalized abdominal pain (2) Anemia Code(s): D64.9 - ANEMIA, UNSPECIFIED (3) Liver metastasis Code(s): C78.7 - SECONDARY MALIG NEOPLASM OF LIVER AND INTRAHEPATIC BILE DUCT
[2019-11-15] MEDS ORDERED: SODIUM CHLORIDE 250 ML IV PRN (16:20)
--- NOTE | 2019-11-15 18:31 | PN ---
Progress Note, Physician Chief Complaint: Abdominal pain History of Present Illness: Seen and examined at the bedside continues to have abdominal pain no N/V for dialysis today - Current Medication List Current Medications: Active Medications Alprazolam (Xanax -) 0.25 mg PO BID PRN PRN Reason: ANXIETY Ascorbic Acid (Vitamin C) 1,000 mg PO DAILY [facility] Last Admin: 11/15/19 10:25 Dose: 1,000 mg Documented by: Bupropion HCl (Wellbutrin Xl -) 150 mg PO DAILY [facility] Last Admin: 11/15/19 10:25 Dose: 150 mg Documented by: Docusate Sodium (Colace -) 300 mg PO HS [facility] Last Admin: 11/14/19 22:08 Dose: 300 mg Documented by: Enoxaparin Sodium (Lovenox -) 100 mg SQ DAILY [facility] Last Admin: 11/15/19 13:32 Dose: 100 mg Documented by: Ferrous Sulfate (Feosol -) 325 mg PO DAILY [facility] Last Admin: 11/15/19 10:24 Dose: 325 mg Documented by: Gabapentin (Neurontin -) 300 mg PO DAILY [facility] Last Admin: 11/15/19 10:23 Dose: 300 mg Documented by: Sodium Chloride (Normal Saline -) 250 mls @ 3,000 mls/hr IV PRN PRN PRN Reason: Hypotension during Dialysis Stop: 11/15/19 22:00 Sodium Chloride (Normal Saline -) 1,000 mls @ 50 mls/hr IV ASDIR [facility] Stop: 11/16/19 02:10 Last Admin: 11/15/19 04:30 Dose: 50 mls/hr Documented by: Multivit/Ca Carb/B Cmplx/FA/Prenat (Nephro-Desi -) 1 tablet PO DAILY [facility] Last Admin: 11/15/19 10:26 Dose: 1 tablet Documented by: Oxycodone HCl (Roxicodone -) 10 mg PO Q6H PRN PRN Reason: PAIN LEVEL 7 - 10 Pantoprazole Sodium (Protonix -) 40 mg PO DAILY [facility] Last Admin: 11/15/19 10:23 Dose: 40 mg Documented by: Polyethylene Glycol (Miralax (For Daily Use) -) 17 gm PO DAILY [facility] Last Admin: 11/15/19 10:25 Dose: 17 gm Documented by: Senna (Senna -) 2 tab PO [facility] Last Admin: 11/14/19 22:08 Dose: 2 tab Documented by: Sevelamer Carbonate (Renvela -) 1,600 mg PO TIDCM [facility] Last Admin: 11/15/19 12:20 Dose: 1,600 mg Documented by: Sevelamer Carbonate (Renvela -) 1,600 mg PO 2100 [facility] Last Admin: 11/14/19 22:08 Dose: 1,600 mg Documented by: Zinc Sulfate (Orazinc -) 220 mg PO DAILY [facility] Last Admin: 11/15/19 10:22 Dose: 220 mg Documented by: - Objective Vital Signs: Vital Signs Temperature 97.5 F L 11/15/19 13:00 Pulse Rate 93 H 11/15/19 18:05 Respiratory Rate 16 11/15/19 18:05 Blood Pressure 70/40 L 11/15/19 18:05 O2 Sat by Pulse Oximetry (%) 97 11/15/19 09:00 Constitutional: Yes: No Distress, Calm Neck: Yes: Supple Cardiovascular: Yes: Regular Rate and Rhythm Respiratory: Yes: Regular Gastrointestinal: Yes: Soft, Tenderness Edema: No Labs: CBC, BMP 11/14/19 06:11 11/14/19 06:11 INR, PTT INR 2.72 (0.83-1.09) H 11/14/19 06:11 Assessment/Plan 73 year old male with with history of ESRD on HD (MWF), atrial fibrilation on anticoagulation, hypertension, hyperlipidemia, anemia, heart failure presented with abdominal pain and found to have multiple masses on his liver. Last dialysis was yesterday. 1. ESRD on HD 2. Abdominal pain 3. Suspected metastatic disease to the liver 4. Anemia in setting of CKD 5. Hypertension 6. Hyperlipidemia 7. Hx of HF 8. 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 Continue renvela with meals Thank you Cory Bowden DO
[2019-11-15 21:11] LABS: HEP B CORE AB, TOT Negative (Negative)
[2019-11-15] MEDS: DOCUSATE SODIUM 100 MG CAPSULE (FP) PO SCH (21:31)
[2019-11-15] MEDS: SENNOSIDES 8.6MG TABLET (FP) PO SCH (21:31)
[2019-11-15 21:47] LABS: INR 2.68 (0.83-1.09)
[2019-11-15] MEDS: ALPRAZolam 0.25 MG TABLET PO PRN (22:02)
[2019-11-16 07:36] LABS: INR 2.47 (0.83-1.09); PROTHROMBIN TIME (PATIENT) 29.4 SEC (9.7-13.0)
[2019-11-16 07:44] LABS: BASO % 0.7 % (0-2.0); EOS % 6.9 % (0-4.5); HEMATOCRIT 29.3 % (35.4-49); HEMOGLOBIN 9.2 GM/dL (11.7-16.9); LYMPH % 8.6 % (8-40); MCH 28.7 pg (25.7-33.7); MCHC 31.5 g/dl (32.0-35.9); MEAN PLT VOLUME 9.1 fl (7.5-11.1); MONO % 4.8 % (3.8-10.2); PLATELET COUNT 154 K/MM3 (134-434); RBC 3.22 M/mm3 (4.00-5.60); RDW 17.9 % (11.9-15.9)
[2019-11-16 08:04] LABS: ALBUMIN 2.2 g/dl (3.4-5.0); BILIRUBIN,TOTAL 1.5 mg/dL (0.2-1); BLOOD UREA NITROGEN 53.1 mg/dL (7-18); CALCIUM 8.6 mg/dL (8.5-10.1); POTASSIUM 4.2 mmol/L (3.5-5.1); TOT PROT 5.7 g/dl (6.4-8.2)
[2019-11-16] MEDS: SEVELAMER CARBONATE 800 MG TAB (FP) PO SCH ×4 (08:27→21:07)
[2019-11-16 08:59] LABS: CREATININE 8.6 mg/dL (0.55-1.3)
[2019-11-16] MEDS: ASCORBIC ACID 500 MG TABLET (FP) PO SCH (09:35)
[2019-11-16] MEDS: GABAPENTIN 300 MG CAPSULE PO SCH (09:36)
[2019-11-16] MEDS: FERROUS SO4 325 MG TABLET (FP) PO SCH (09:36)
[2019-11-16] MEDS: ENOXAPARIN NA (PORCINE) 100 MG/1 ML DISP.SYRIN SQ SCH (09:36)
[2019-11-16] MEDS: POLYETHYLENE GLYCOL 3350 119 GM BTL PO SCH (09:36)
[2019-11-16] MEDS: VITAMIN B COMP W-C 1 EA TABLET (NEPHRO-VITE) PO SCH (09:36)
[2019-11-16] MEDS: ALPRAZolam 0.25 MG TABLET PO PRN ×2 (09:36→21:07)
[2019-11-16] MEDS: ZINC SULFATE 220 MG CAPSULE (FP) PO SCH (09:37)
[2019-11-16] MEDS: PANTOPRAZOLE 40 MG TABLET PO SCH (09:37)
--- NOTE | 2019-11-16 10:03 | CON.HO ---
Consult - text type - Consultation Consultation Note: Consultation to IR Dr. Mondragon was placed on 11/13. However, caty INR is still too high for him to d caty biopsy. Nathalie switched to Lvenox to enale him to get the biopsy in 24 hours after it being held once INR improves.
[2019-11-16 10:15] LABS: ANISOCYTOSIS 1+; MACROCYTOSIS 1+; PLATELET ESTIMATE DECREASED
[2019-11-16] MEDS ORDERED: PHYTONADIONE 10 MG/1 ML AMP SQ ONE (10:48)
--- NOTE | 2019-11-16 11:24 | PN ---
Progress Note, Physician Chief Complaint: Abdominal pain History of Present Illness: NAD denies any pain wants to eat solid foods Seen by GI CTAP multiple liver lesions likely metastatic disease Awaiting IR to perform liver biopsy once INR <1.5 Last Eliquis dose on 11/13/19, on Lovenox BID Received Vitamin K 5 mg po once MRI abd: Markedly limited exam of poor diagnostic value due to significant motion and lack of IV contrast. Within the limitations of the exam, markedly heterogeneous and nodular liver is noted with honeycombing could be secondary to advanced liver cirrhosis with nodular regeneration however scattered foci of restricted diffusion seen suspicious for dysplastic or neoplastic lesions. Underlying infiltrate neoplastic disease cannot be excluded. Contrast is suggested for bett er evaluation. Nonspecific britt hepatis and retroperitoneal adenopathy which could be reactive, neoplastic/metastatic or lymphoproliferative disorder. Third spacing suggested by diffuse subcutaneous and mesenteric edema and small perihepatic and perisplenic ascites. Splenomegaly - portal hypertension. 1.4 cm pancreatic neck/proximal pancreatic tail lesion with corresponding nodule seen on CT scan. This is of indeterminate nature and not characterized on this exam. This could represent pancreatic neoplasm or an adjacent lymph node. Follow-up is recommended. Intra and extrahepatic biliary tree not visualized possibly due to nondistention from lack of appreciable bile secondary to hepatic failure. Severely atrophic right kidney. 3.5 cm left renal cyst. - Current Medication List Current Medications: Active Medications Alprazolam (Xanax -) 0.25 mg PO BID PRN PRN Reason: ANXIETY Last Admin: 11/16/19 09:36 Dose: 0.25 mg Documented by: Ascorbic Acid (Vitamin C -) 1,000 mg PO DAILY [facility] Last Admin: 11/16/19 09:35 Dose: 1,000 mg Documented by: Bupropion HCl (Wellbutrin Xl -) 150 mg PO DAILY [facility] Last Admin: 11/16/19 09:36 Dose: 150 mg Documented by: Docusate Sodium (Colace -) 300 mg PO HS [facility] Last Admin: 11/15/19 21:31 Dose: 300 mg Documented by: Enoxaparin Sodium (Lovenox -) 100 mg SQ DAILY [facility] Last Admin: 11/16/19 09:36 Dose: 100 mg Documented by: Ferrous Sulfate (Feosol -) 325 mg PO DAILY [facility] Last Admin: 11/16/19 09:36 Dose: 325 mg Documented by: Gabapentin (Neurontin -) 300 mg PO DAILY [facility] Last Admin: 11/16/19 09:36 Dose: 300 mg Documented by: Multivit/Ca Carb/B Cmplx/FA/Prenat (Nephro-Desi -) 1 tablet PO DAILY [facility] Last Admin: 11/16/19 09:36 Dose: 1 tablet Documented by: Oxycodone HCl (Roxicodone -) 10 mg PO Q6H PRN PRN Reason: PAIN LEVEL 7 - 10 Pantoprazole Sodium (Protonix -) 40 mg PO DAILY [facility] Last Admin: 11/16/19 09:37 Dose: 40 mg Documented by: Polyethylene Glycol (Miralax (For Daily Use) -) 17 gm PO DAILY [facility] Last Admin: 11/16/19 09:36 Dose: 17 gm Documented by: Senna (Senna -) 2 tab PO HS [facility] Last Admin: 11/15/19 21:31 Dose: 2 tab Documented by: Sevelamer Carbonate (Renvela -) 1,600 mg PO TIDCM [facility] Last Admin: 11/16/19 08:27 Dose: 1,600 mg Documented by: Sevelamer Carbonate (Renvela -) 1,600 mg PO 2100 [facility] Last Admin: 11/15/19 21:31 Dose: 1,600 mg Documented by: Zinc Sulfate (Orazinc -) 220 mg PO DAILY [facility] Last Admin: 11/16/19 09:37 Dose: 220 mg Documented by: - Objective Vital Signs: Vital Signs Temperature 97.5 F L 11/16/19 09:00 Pulse Rate 97 H 11/16/19 09:00 Respiratory Rate 20 11/16/19 09:00 Blood Pressure 97/44 L 11/16/19 09:00 O2 Sat by Pulse Oximetry (%) 93 L 11/15/19 21:00 Constitutional: Yes: Well Nourished, No Distress, Calm Cardiovascular: Yes: Regular Rate and Rhythm Respiratory: Yes: Regular, CTA Bilaterally Gastrointestinal: Yes: Normal Bowel Sounds, Abdomen, Obese, Ascites Genitourinary: Yes: Incontinence Musculoskeletal: Yes: Muscle Weakness Extremities: Yes: WNL Edema: No Peripheral Pulses WNL: Yes Neurological: Yes: Alert, Oriented Psychiatric: Yes: Alert, Oriented Labs: CBC, BMP 11/16/19 06:32 11/16/19 06:32 INR, PTT INR 2.47 (0.83-1.09) H 11/16/19 06:32 Problem List - Problems (1) Liver metastasis Assessment/Plan: -Oncology consult -Liver biopsy -GI consult -Tumor markers -MRI abd results + metastatic disease -IR to do liver biopsy and paracentesis once INR <1.5 -Monitor daily INR -Vit K 10 mg SQ once -Advance diet to low sodium diet Problems reviewed: Yes Code(s): C78.7 - SECONDARY MALIG NEOPLASM OF LIVER AND INTRAHEPATIC BILE DUCT (2) Abdominal pain Assessment/Plan: -resolved -PPI -Pain management with acetaminophen Problems reviewed: Yes Code(s): R10.9 - UNSPECIFIED ABDOMINAL PAIN Qualifiers: Abdominal location: generalized Qualified Code(s): R10.84 - Generalized abdominal pain (3) Anemia Assessment/Plan: -Likely 2/2 to liver disease + CKD -B12, thyroid+ iron unremarkable -Stool OB negative -Monitor trend, transfuse only if Hg<7.0 to avoid fluid overload Problems reviewed: Yes Code(s): D64.9 - ANEMIA, UNSPECIFIED (4) Anxiety about health Assessment/Plan: -Pastoral care and psychotherapy ordered -Alprazolam 0.25 mg po BID Problems reviewed: Yes Code(s): F41.8 - OTHER SPECIFIED ANXIETY DISORDERS Assessment/Plan See problem list
--- NOTE | 2019-11-16 12:28 | CON.PSL ---
Psychology Consult History Provided By: Patient, Medical Record Limitations to Obtaining History: No Limitations Current Medications: Active Medications Alprazolam (Xanax -) 0.25 mg PO BID PRN PRN Reason: ANXIETY Last Admin: 11/16/19 09:36 Dose: 0.25 mg Documented by: Ascorbic Acid (Vitamin C -) 1,000 mg PO DAILY [facility] Last Admin: 11/16/19 09:35 Dose: 1,000 mg Documented by: Bupropion HCl (Wellbutrin Xl -) 150 mg PO DAILY [facility] Last Admin: 11/16/19 09:36 Dose: 150 mg Documented by: Docusate Sodium (Colace -) 300 mg PO HS [facility] Last Admin: 11/15/19 21:31 Dose: 300 mg Documented by: Enoxaparin Sodium (Lovenox -) 100 mg SQ DAILY [facility] Last Admin: 11/16/19 09:36 Dose: 100 mg Documented by: Ferrous Sulfate (Feosol -) 325 mg PO DAILY [facility] Last Admin: 11/16/19 09:36 Dose: 325 mg Documented by: Gabapentin (Neurontin -) 300 mg PO DAILY [facility] Last Admin: 11/16/19 09:36 Dose: 300 mg Documented by: Multivit/Ca Carb/B Cmplx/FA/Prenat (Nephro-Desi -) 1 tablet PO DAILY [facility] Last Admin: 11/16/19 09:36 Dose: 1 tablet Documented by: Oxycodone HCl (Roxicodone -) 10 mg PO Q6H PRN PRN Reason: PAIN LEVEL 7 - 10 Pantoprazole Sodium (Protonix -) 40 mg PO DAILY [facility] Last Admin: 11/16/19 09:37 Dose: 40 mg Documented by: Polyethylene Glycol (Miralax (For Daily Use) -) 17 gm PO DAILY [facility] Last Admin: 11/16/19 09:36 Dose: 17 gm Documented by: Senna (Senna -) 2 tab PO HS [facility] Last Admin: 11/15/19 21:31 Dose: 2 tab Documented by: Sevelamer Carbonate (Renvela -) 1,600 mg PO TIDCM [facility] Last Admin: 11/16/19 08:27 Dose: 1,600 mg Documented by: Sevelamer Carbonate (Renvela -) 1,600 mg PO 2100 [facility] Last Admin: 11/15/19 21:31 Dose: 1,600 mg Documented by: Zinc Sulfate (Orazinc -) 220 mg PO DAILY [facility] Last Admin: 11/16/19 09:37 Dose: 220 mg Documented by: Allergies: Allergies Allergy/AdvReac Type Severity Reaction Status Date / Time No Known Allergies Allergy Verified 11/13/19 18:22 Does patient have pain?: No Hx Alcohol Use: No Hx Substance Use: No Current Medical Exam-Psy Immediate Term Memory: 0/3 Expressive: Delayed, Incoherent Hallucinations: Absent Thought Process: Circumstantial, [place] Depression: Moderate Hopelessness: Yes Loss of Interest: Yes Anxiety Level: Severe Danger to Self and Others: No Sleep: Well Appetite: Good Serial Sevens Intact: No Repeats 3 words told earlier: 0/3 Support System: Significant Other, Family, Friend Problem List - Problem (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 However, he was unable to perform the short term memory test or the serial 7's test. He only kept stating that he wanted to know the results of the medical tests to determine if he has cancer. His speech was difficult to understand at times and there is a question as to his coherence level. There was not indication of any psychotic symptoms. He responded in the affirmative as to significant depression and anxiety about his health. In order to address his anxiety, he was instructed in deep nasal breathing - counting to 4 as he inhales and 8 as he exhales. This is helpful in reducing anxiety. He needs to have someone wrestling coach him to make sure he understands the procedure. I will followup with the patient in a few days. Thank you for the referral.
--- NOTE | 2019-11-16 13:24 | PN ---
Progress Note, Physician Chief Complaint: Abdominal pain History of Present Illness: Seen and examined at the bedside offers no acute complaints no sob, cp, fever, chills s/p dialysis yesterday - Current Medication List Current Medications: Active Medications Alprazolam (Xanax -) 0.25 mg PO BID PRN PRN Reason: ANXIETY Last Admin: 11/16/19 09:36 Dose: 0.25 mg Documented by: Ascorbic Acid (Vitamin C -) 1,000 mg PO DAILY [facility] Last Admin: 11/16/19 09:35 Dose: 1,000 mg Documented by: Bupropion HCl (Wellbutrin Xl -) 150 mg PO DAILY [facility] Last Admin: 11/16/19 09:36 Dose: 150 mg Documented by: Docusate Sodium (Colace -) 300 mg PO HS [facility] Last Admin: 11/15/19 21:31 Dose: 300 mg Documented by: Enoxaparin Sodium (Lovenox -) 100 mg SQ DAILY [facility] Last Admin: 11/16/19 09:36 Dose: 100 mg Documented by: Ferrous Sulfate (Feosol -) 325 mg PO DAILY [facility] Last Admin: 11/16/19 09:36 Dose: 325 mg Documented by: Gabapentin (Neurontin -) 300 mg PO DAILY [facility] Last Admin: 11/16/19 09:36 Dose: 300 mg Documented by: Multivit/Ca Carb/B Cmplx/FA/Prenat (Nephro-Desi -) 1 tablet PO DAILY [facility] Last Admin: 11/16/19 09:36 Dose: 1 tablet Documented by: Oxycodone HCl (Roxicodone -) 10 mg PO Q6H PRN PRN Reason: PAIN LEVEL 7 - 10 Pantoprazole Sodium (Protonix -) 40 mg PO DAILY [facility] Last Admin: 11/16/19 09:37 Dose: 40 mg Documented by: Polyethylene Glycol (Miralax (For Daily Use) -) 17 gm PO DAILY [facility] Last Admin: 11/16/19 09:36 Dose: 17 gm Documented by: Senna (Senna -) 2 tab PO HS [facility] Last Admin: 11/15/19 21:31 Dose: 2 tab Documented by: Sevelamer Carbonate (Renvela -) 1,600 mg PO TIDCM [facility] Last Admin: 11/16/19 08:27 Dose: 1,600 mg Documented by: Sevelamer Carbonate (Renvela -) 1,600 mg PO 2100 [facility] Last Admin: 11/15/19 21:31 Dose: 1,600 mg Documented by: Zinc Sulfate (Orazinc -) 220 mg PO DAILY [facility] Last Admin: 11/16/19 09:37 Dose: 220 mg Documented by: - Objective Vital Signs: Vital Signs Temperature 97.5 F L 11/16/19 09:00 Pulse Rate 97 H 11/16/19 09:00 Respiratory Rate 20 11/16/19 09:00 Blood Pressure 97/44 L 11/16/19 09:00 O2 Sat by Pulse Oximetry (%) 93 L 11/15/19 21:00 Constitutional: Yes: No Distress Eyes: Yes: Conjunctiva Clear HENT: Yes: Atraumatic Neck: Yes: Supple Cardiovascular: Yes: Regular Rate and Rhythm Respiratory: Yes: Regular Gastrointestinal: Yes: Soft, Tenderness Edema: No Neurological: Yes: Alert Labs: CBC, BMP 11/16/19 06:32 11/16/19 06:32 INR, PTT INR 2.47 (0.83-1.09) H 11/16/19 06:32 Assessment/Plan 73 year old male with with history of ESRD on HD (MWF), atrial fibrilation on anticoagulation, hypertension, hyperlipidemia, anemia, heart failure presented with abdominal pain and found to have multiple masses on his liver. Last dialysis was yesterday. 1. ESRD on HD 2. Abdominal pain 3. Suspected metastatic disease to the liver 4. Anemia in setting of CKD 5. Hypertension 6. Hyperlipidemia 7. Hx of HF 8. Renal osteodystrophy s/p HD yesterday, tolerated it well next anticipated dialysis is Tomorrow Continue work up of liver lesion, planned for liver biopsy GI and Oncology follow up Hgb is < 10, will give BRAIN with dialysis BP is within normal limits off antihypertensives. Continue renvela with meals Thank you Cory Bowden DO
[2019-11-16] MEDS: SENNOSIDES 8.6MG TABLET (FP) PO SCH (21:07)
[2019-11-16] MEDS: DOCUSATE SODIUM 100 MG CAPSULE (FP) PO SCH (21:07)
[2019-11-17 08:20] LABS: BASO % 1.1 % (0-2.0); HEMATOCRIT 29.7 % (35.4-49); HEMOGLOBIN 9.1 GM/dL (11.7-16.9); LYMPH % 7.5 % (8-40); MCH 27.1 pg (25.7-33.7); MCHC 30.5 g/dl (32.0-35.9); MEAN PLT VOLUME 8.4 fl (7.5-11.1); MONO % 6.3 % (3.8-10.2); NEUT % 81.1 % (42.8-82.8); PLATELET COUNT 137 K/MM3 (134-434); RBC 3.34 M/mm3 (4.00-5.60); RDW 18.8 % (11.9-15.9); WHITE BLOOD COUNT 7.3 K/mm3 (4.0-10.0)
[2019-11-17 08:23] LABS: INR 2.07 (0.83-1.09); PROTHROMBIN TIME (PATIENT) 24.6 SEC (9.7-13.0)
[2019-11-17 08:57] LABS: ALBUMIN 2.2 g/dl (3.4-5.0); BILIRUBIN,TOTAL 1.5 mg/dL (0.2-1); BLOOD UREA NITROGEN 69.3 mg/dL (7-18); CALCIUM 8.6 mg/dL (8.5-10.1); POTASSIUM 5.2 mmol/L (3.5-5.1); TOT PROT 5.6 g/dl (6.4-8.2)
[2019-11-17 09:18] LABS: CREATININE 10.4 mg/dL (0.55-1.3)
[2019-11-17] MEDS ORDERED: SODIUM CHLORIDE 250 ML IV PRN (09:53)
[2019-11-17] MEDS ORDERED: EPOETIN ALFA-EPBX 4,000 UNIT/ML VIAL SQ ONE (10:00)
[2019-11-17] MEDS: ALPRAZolam 0.25 MG TABLET PO PRN ×2 (11:16→20:34)
--- NOTE | 2019-11-17 11:29 | PN ---
Progress Note, Physician Chief Complaint: Abdominal pain History of Present Illness: NAD denies any pain wants to eat solid foods Seen by GI CTAP multiple liver lesions likely metastatic disease Awaiting IR to perform liver biopsy once INR <1.5 Last Eliquis dose on 11/13/19, on Lovenox BID Received Vitamin K 5 mg po once MRI abd: Markedly limited exam of poor diagnostic value due to significant motion and lack of IV contrast. Within the limitations of the exam, markedly heterogeneous and nodular liver is noted with honeycombing could be secondary to advanced liver cirrhosis with nodular regeneration however scattered foci of restricted diffusion seen suspicious for dysplastic or neoplastic lesions. Underlying infiltrate neoplastic disease cannot be excluded. Contrast is suggested for bett er evaluation. Nonspecific britt hepatis and retroperitoneal adenopathy which could be reactive, neoplastic/metastatic or lymphoproliferative disorder. Third spacing suggested by diffuse subcutaneous and mesenteric edema and small perihepatic and perisplenic ascites. Splenomegaly - portal hypertension. 1.4 cm pancreatic neck/proximal pancreatic tail lesion with corresponding nodule seen on CT scan. This is of indeterminate nature and not characterized on this exam. This could represent pancreatic neoplasm or an adjacent lymph node. Follow-up is recommended. Intra and extrahepatic biliary tree not visualized possibly due to nondistention from lack of appreciable bile secondary to hepatic failure. Severely atrophic right kidney. 3.5 cm left renal cyst. - Current Medication List Current Medications: Active Medications Alprazolam (Xanax -) 0.25 mg PO BID PRN PRN Reason: ANXIETY Last Admin: 11/17/19 11:16 Dose: 0.25 mg Documented by: Ascorbic Acid (Vitamin C -) 1,000 mg PO DAILY [facility] Last Admin: 11/16/19 09:35 Dose: 1,000 mg Documented by: Bupropion HCl (Wellbutrin Xl -) 150 mg PO DAILY [facility] Last Admin: 11/16/19 09:36 Dose: 150 mg Documented by: Docusate Sodium (Colace -) 300 mg PO HS [facility] Last Admin: 11/16/19 21:07 Dose: 300 mg Documented by: Enoxaparin Sodium (Lovenox -) 100 mg SQ DAILY [facility] Last Admin: 11/16/19 09:36 Dose: 100 mg Documented by: Ferrous Sulfate (Feosol -) 325 mg PO DAILY [facility] Last Admin: 11/16/19 09:36 Dose: 325 mg Documented by: Gabapentin (Neurontin -) 300 mg PO DAILY [facility] Last Admin: 11/16/19 09:36 Dose: 300 mg Documented by: Multivit/Ca Carb/B Cmplx/FA/Prenat (Nephro-Desi -) 1 tablet PO DAILY [facility] Last Admin: 11/16/19 09:36 Dose: 1 tablet Documented by: Oxycodone HCl (Roxicodone -) 10 mg PO Q6H PRN PRN Reason: PAIN LEVEL 7 - 10 Pantoprazole Sodium (Protonix -) 40 mg PO DAILY [facility] Last Admin: 11/16/19 09:37 Dose: 40 mg Documented by: Phytonadione (Aqua Mephyton Injection -) 10 mg SQ DAILY [facility] Polyethylene Glycol (Miralax (For Daily Use) -) 17 gm PO DAILY [facility] Last Admin: 11/16/19 09:36 Dose: 17 gm Documented by: Kari (Senna -) 2 tab PO HS [facility] Last Admin: 11/16/19 21:07 Dose: 2 tab Documented by: Sevelamer Carbonate (Renvela -) 1,600 mg PO TIDCM [facility] Last Admin: 11/16/19 17:16 Dose: 1,600 mg Documented by: Sevelamer Carbonate (Renvela -) 1,600 mg PO 2100 [facility] Last Admin: 11/16/19 21:07 Dose: 1,600 mg Documented by: Zinc Sulfate (Orazinc -) 220 mg PO DAILY [facility] Last Admin: 11/16/19 09:37 Dose: 220 mg Documented by: - Objective Vital Signs: Vital Signs Temperature 98.2 F 11/17/19 10:10 Pulse Rate 92 H 11/17/19 10:45 Respiratory Rate 16 11/17/19 10:45 Blood Pressure 106/59 L 11/17/19 10:45 O2 Sat by Pulse Oximetry (%) 93 L 11/16/19 21:00 Constitutional: Yes: Well Nourished, No Distress, Calm Cardiovascular: Yes: Regular Rate and Rhythm Respiratory: Yes: Regular, CTA Bilaterally Gastrointestinal: Yes: Normal Bowel Sounds, Soft, Ascites Genitourinary: Yes: Incontinence Musculoskeletal: Yes: Muscle Weakness Extremities: Yes: WNL Edema: No Peripheral Pulses WNL: Yes Neurological: Yes: Alert, Oriented Psychiatric: Yes: Alert, Oriented Labs: CBC, BMP 11/17/19 07:30 11/17/19 07:30 INR, PTT INR 2.07 (0.83-1.09) H 11/17/19 07:30 Problem List - Problems (1) Liver metastasis Assessment/Plan: -Oncology consult -Liver biopsy -GI consult -Tumor markers -MRI abd results + metastatic disease -IR to do liver biopsy and paracentesis once INR <1.5 -Monitor daily INR -Vit K 10 mg SQ daily -Advance diet to low sodium diet Problems reviewed: Yes Code(s): C78.7 - SECONDARY MALIG NEOPLASM OF LIVER AND INTRAHEPATIC BILE DUCT (2) Abdominal pain Assessment/Plan: -resolved -PPI -Pain management with acetaminophen Problems reviewed: Yes Code(s): R10.9 - UNSPECIFIED ABDOMINAL PAIN Qualifiers: Abdominal location: generalized Qualified Code(s): R10.84 - Generalized abdominal pain (3) Anemia Assessment/Plan: -Likely 2/2 to liver disease + CKD -B12, thyroid+ iron unremarkable -Stool OB negative -Monitor trend, transfuse only if Hg<7.0 to avoid fluid overload Problems reviewed: Yes Code(s): D64.9 - ANEMIA, UNSPECIFIED (4) Anxiety about health Assessment/Plan: -Pastoral care and psychotherapy ordered -Alprazolam 0.25 mg po BID Problems reviewed: Yes Code(s): F41.8 - OTHER SPECIFIED ANXIETY DISORDERS Assessment/Plan See problem list
[2019-11-17] MEDS: SEVELAMER CARBONATE 800 MG TAB (FP) PO SCH ×4 (12:53→20:35)
--- NOTE | 2019-11-17 13:09 | PN ---
Progress Note, Physician Chief Complaint: Abdominal pain History of Present Illness: Seen and examined during dialysis awake and alert very anxious BP is low, UF goal reduced to 1L no cramping, lightheadedness, dizziness no sob, cp, fever, chills still has abdominal pain - Current Medication List Current Medications: Active Medications Alprazolam (Xanax -) 0.25 mg PO BID PRN PRN Reason: ANXIETY Last Admin: 11/17/19 11:16 Dose: 0.25 mg Documented by: Ascorbic Acid (Vitamin C -) 1,000 mg PO DAILY [facility] Last Admin: 11/16/19 09:35 Dose: 1,000 mg Documented by: Bupropion HCl (Wellbutrin Xl -) 150 mg PO DAILY [facility] Last Admin: 11/16/19 09:36 Dose: 150 mg Documented by: Docusate Sodium (Colace -) 300 mg PO HS [facility] Last Admin: 11/16/19 21:07 Dose: 300 mg Documented by: Enoxaparin Sodium (Lovenox -) 100 mg SQ DAILY [facility] Last Admin: 11/16/19 09:36 Dose: 100 mg Documented by: Ferrous Sulfate (Feosol -) 325 mg PO DAILY [facility] Last Admin: 11/16/19 09:36 Dose: 325 mg Documented by: Gabapentin (Neurontin -) 300 mg PO DAILY [facility] Last Admin: 11/16/19 09:36 Dose: 300 mg Documented by: Multivit/Ca Carb/B Cmplx/FA/Prenat (Nephro-Desi -) 1 tablet PO DAILY [facility] Last Admin: 11/16/19 09:36 Dose: 1 tablet Documented by: Oxycodone HCl (Roxicodone -) 10 mg PO Q6H PRN PRN Reason: PAIN LEVEL 7 - 10 Pantoprazole Sodium (Protonix -) 40 mg PO DAILY [facility] Last Admin: 11/16/19 09:37 Dose: 40 mg Documented by: Phytonadione (Aqua Mephyton Injection -) 10 mg SQ DAILY [facility] Polyethylene Glycol (Miralax (For Daily Use) -) 17 gm PO DAILY [facility] Last Admin: 11/16/19 09:36 Dose: 17 gm Documented by: Senna (Senna -) 2 tab PO [facility] Last Admin: 11/16/19 21:07 Dose: 2 tab Documented by: Sevelamer Carbonate (Renvela -) 1,600 mg PO TIDCM [facility] Last Admin: 11/17/19 12:53 Dose: Not Given Documented by: Sevelamer Carbonate (Renvela -) 1,600 mg PO 2100 [facility] Last Admin: 11/16/19 21:07 Dose: 1,600 mg Documented by: Zinc Sulfate (Orazinc -) 220 mg PO DAILY [facility] Last Admin: 11/16/19 09:37 Dose: 220 mg Documented by: - Objective Vital Signs: Vital Signs Temperature 98.2 F 11/17/19 10:10 Pulse Rate 103 H 11/17/19 12:48 Respiratory Rate 16 11/17/19 12:48 Blood Pressure 78/47 L 11/17/19 12:48 O2 Sat by Pulse Oximetry (%) 93 L 11/17/19 09:00 Constitutional: Yes: No Distress, Calm HENT: Yes: Atraumatic Neck: Yes: Supple Cardiovascular: Yes: Regular Rate and Rhythm Respiratory: Yes: Regular Gastrointestinal: Yes: Soft, Distention, Tenderness Extremities: No: Cyanosis Edema: Yes Edema: LLE: Trace, RLE: Trace Neurological: Yes: Alert, Oriented Labs: CBC, BMP 11/17/19 07:30 11/17/19 07:30 INR, PTT INR 2.07 (0.83-1.09) H 11/17/19 07:30 Assessment/Plan 73 year old male with with history of ESRD on HD (MWF), atrial fibrilation on anticoagulation, hypertension, hyperlipidemia, anemia, heart failure presented with abdominal pain and found to have multiple masses on his liver. Last dialysis was yesterday. 1. ESRD on HD 2. Abdominal pain 3. Suspected metastatic disease to the liver 4. Anemia in setting of CKD 5. Hypertension 6. Hyperlipidemia 7. Hx of HF 8. Renal osteodystrophy tolerating dialysis with reduced UF Next planned dialysis is Wednesday Continue work up of liver lesion, planned for liver biopsy once INR < 1.5, currently 2 GI and Oncology follow up Hgb is < 10, will give BRAIN with dialysis BP is marginal limiting UF Continue renvela with meals Thank you Cory Bowden DO
[2019-11-17] MEDS: GABAPENTIN 300 MG CAPSULE PO SCH (15:17)
[2019-11-17] MEDS: ASCORBIC ACID 500 MG TABLET (FP) PO SCH (15:17)
[2019-11-17] MEDS: PANTOPRAZOLE 40 MG TABLET PO SCH (15:17)
[2019-11-17] MEDS: ZINC SULFATE 220 MG CAPSULE (FP) PO SCH (15:17)
[2019-11-17] MEDS: ENOXAPARIN NA (PORCINE) 100 MG/1 ML DISP.SYRIN SQ SCH (15:18)
[2019-11-17] MEDS: POLYETHYLENE GLYCOL 3350 119 GM BTL PO SCH (15:18)
[2019-11-17] MEDS: FERROUS SO4 325 MG TABLET (FP) PO SCH (15:18)
[2019-11-17] MEDS: VITAMIN B COMP W-C 1 EA TABLET (NEPHRO-VITE) PO SCH (15:18)
--- NOTE | 2019-11-17 15:26 | PN ---
Progress Note (short form) - Note Progress Note: Gastroenterology note: Pt without complaints of abd pain, eating and having BM. Vital Signs Period Temp Pulse Resp BP Sys/Calvert Pulse Ox Last 24 Hr 98.2 F-99.1 F 85-117 16-20 72-140/35-66 93-93 GEN: Alert and in NAD ABD: soft, obese, non-distended CBC, BMP 11/17/19 07:30 11/17/19 07:30 Laboratory Tests 11/14/19 11/14/19 11/17/19 06:11 06:11 07:30 INR 2.07 H Total Bilirubin AST ALT Alkaline Phosphatase Carcinoembryonic Ag 481.0 H CA 19-9 Antigen 8085 H 11/17/19 07:30 INR Total Bilirubin 1.5 H AST 385 H ALT 111 H Alkaline Phosphatase 602 H Carcinoembryonic Ag CA 19-9 Antigen Laboratory Tests 11/14/19 11/14/19 11/14/19 06:11 06:11 06:11 Carcinoembryonic Ag 481.0 H CA 19-9 Antigen 8085 H Hep A IgM Ab Confirm Negative Hepatitis A Ab Total Positive H Hep Bs Antigen Negative Hep Bs Antibody Reactive Hep B Core Total Ab Negative Hep B Core IgM Ab Negative Hepatitis Be Antibody Negative Hepatitis Be Antigen Negative HCV Quantitation <Farhana Power - Last Filed: 11/17/19 15:39> - Note Progress Note: AGREE WITH ASSESSMENT AND PLAN OUTLINED ABOVE <Namita Peraza - Last Filed: 11/17/19 17:01> Problem List - Problems (1) Abdominal pain Assessment/Plan: - Problems MRI-liver nodularitiy suspicious for neoplastic lesion IR guided biopsy off anticoagulation for tissue sample and diagnosis; as per nursing staff plan for IR biopsy on Wednesday, unable to confirm with radiology due to the holdiay today. His INR will need correction and lovenox held in the am of the procedure oncology f/u Hepatitis serology negative d/w Dr. Peraza Problems reviewed: Yes Code(s): R10.9 - UNSPECIFIED ABDOMINAL PAIN Qualifiers: Abdominal location: generalized Qualified Code(s): R10.84 - Generalized abdominal pain <Farhana Power - Last Filed: 11/17/19 15:39> - Problems (1) Abdominal pain Code(s): R10.9 - UNSPECIFIED ABDOMINAL PAIN Qualifiers: Abdominal location: generalized Qualified Code(s): R10.84 - Generalized abdominal pain (2) Anemia Code(s): D64.9 - ANEMIA, UNSPECIFIED (3) Liver metastasis Code(s): C78.7 - SECONDARY MALIG NEOPLASM OF LIVER AND INTRAHEPATIC BILE DUCT <Namita Peraza - Last Filed: 11/17/19 17:01>
[2019-11-17] MEDS: PHYTONADIONE 10 MG/1 ML AMP SQ SCH (15:36)
--- NOTE | 2019-11-17 19:52 | PN.HO ---
Progress Note (short form) - Note Progress Note: PAtient seen and examined Feels well AFVSS Cor: RSR, No murmurs, No gallops Lungs: Clear to P&A Abd: Soft, Normal bowel sounds, No organomegaly Ext:No significant edema LAbs/Meds reviewed A/P 73 y/o gentleman admitted to evaluation of abdominal pain. He alludes to having an US performed while in [facility] that showed "spots on the liver". He takes eliquis, which he believes he took yesterday. There is no family history of colorectal cacner or other GI malignancy. CTA was performed revealing a liver with innumerable lesions. The radiologist described this as almost complete replacement of the liver with metastatic disease. Upper abdominal lymphadenopathy seen as well and areas of colon wall thickening of unclear etiology. Cirrhosis/liver nodules/ britt hepatis and retroperitoneal adenopathy. Lt. paraaortic /britt hepatis and retroperitoneal adenopathy splenic hypodensity on CT scan? embolic CEA and CA19.9 higly elevated Coagulopathic ? liver disease Eliquis on hold Lovenox on hold Getting Vit. K May need FFP prior to biopsy depending on INR will follow
[2019-11-17] MEDS: DOCUSATE SODIUM 100 MG CAPSULE (FP) PO SCH (22:00)
[2019-11-17] MEDS: SENNOSIDES 8.6MG TABLET (FP) PO SCH (22:00)
[2019-11-18] MEDS: SEVELAMER CARBONATE 800 MG TAB (FP) PO SCH ×4 (09:22→22:57)
[2019-11-18] MEDS: ASCORBIC ACID 500 MG TABLET (FP) PO SCH (09:25)
[2019-11-18] MEDS: PANTOPRAZOLE 40 MG TABLET PO SCH (09:26)
[2019-11-18] MEDS: GABAPENTIN 300 MG CAPSULE PO SCH (09:26)
[2019-11-18] MEDS: FERROUS SO4 325 MG TABLET (FP) PO SCH (09:26)
[2019-11-18] MEDS: POLYETHYLENE GLYCOL 3350 119 GM BTL PO SCH (09:27)
[2019-11-18] MEDS: ZINC SULFATE 220 MG CAPSULE (FP) PO SCH (09:27)
[2019-11-18 09:47] LABS: BASO % 0.9 % (0-2.0); HEMATOCRIT 30.1 % (35.4-49); HEMOGLOBIN 9.2 GM/dL (11.7-16.9); LYMPH % 8.4 % (8-40); MCHC 30.4 g/dl (32.0-35.9); MEAN CELL VOLUME 88.8 fl (80-96); MEAN PLT VOLUME 8.6 fl (7.5-11.1); NEUT % 75.7 % (42.8-82.8); PLATELET COUNT 133 K/MM3 (134-434); RBC 3.39 M/mm3 (4.00-5.60); RDW 19.4 % (11.9-15.9); WHITE BLOOD COUNT 7.3 K/mm3 (4.0-10.0)
[2019-11-18 09:54] LABS: INR 1.98 (0.83-1.09); PROTHROMBIN TIME (PATIENT) 23.5 SEC (9.7-13.0)
[2019-11-18 10:22] LABS: ALBUMIN 2.1 g/dl (3.4-5.0); CALCIUM 8.3 mg/dL (8.5-10.1); POTASSIUM 5.1 mmol/L (3.5-5.1)
[2019-11-18 10:26] LABS: BILIRUBIN,TOTAL 1.7 mg/dL (0.2-1); BLOOD UREA NITROGEN 61.4 mg/dL (7-18); TOT PROT 5.2 g/dl (6.4-8.2)
[2019-11-18] MEDS: ALPRAZolam 0.25 MG TABLET PO PRN (10:35)
[2019-11-18] MEDS: VITAMIN B COMP W-C 1 EA TABLET (NEPHRO-VITE) PO SCH (10:35)
[2019-11-18] MEDS: PHYTONADIONE 10 MG/1 ML AMP SQ SCH (10:46)
[2019-11-18 11:10] LABS: CREATININE 9.1 mg/dL (0.55-1.3)
--- NOTE | 2019-11-18 12:22 | PN ---
Progress Note, Physician - Current Medication List Current Medications: Active Medications Alprazolam (Xanax -) 0.25 mg PO BID PRN PRN Reason: ANXIETY Last Admin: 11/18/19 10:35 Dose: 0.25 mg Documented by: Ascorbic Acid (Vitamin C -) 1,000 mg PO DAILY [facility] Last Admin: 11/18/19 09:25 Dose: 1,000 mg Documented by: Bupropion HCl (Wellbutrin Xl -) 150 mg PO DAILY [facility] Last Admin: 11/18/19 09:23 Dose: 150 mg Documented by: Docusate Sodium (Colace -) 300 mg PO HS [facility] Last Admin: 11/17/19 22:00 Dose: 300 mg Documented by: Ferrous Sulfate (Feosol -) 325 mg PO DAILY [facility] Last Admin: 11/18/19 09:26 Dose: 325 mg Documented by: Gabapentin (Neurontin -) 300 mg PO DAILY [facility] Last Admin: 11/18/19 09:26 Dose: 300 mg Documented by: Multivit/Ca Carb/B Cmplx/FA/Prenat (Nephro-Desi -) 1 tablet PO DAILY [facility] Last Admin: 11/18/19 10:35 Dose: 1 tablet Documented by: Pantoprazole Sodium (Protonix -) 40 mg PO DAILY [facility] Last Admin: 11/18/19 09:26 Dose: 40 mg Documented by: Phytonadione (Aqua Mephyton Injection -) 10 mg SQ DAILY [facility] Last Admin: 11/18/19 10:46 Dose: 10 mg Documented by: Polyethylene Glycol (Miralax (For Daily Use) -) 17 gm PO DAILY [facility] Last Admin: 11/18/19 09:27 Dose: 17 gm Documented by: Senna (Senna -) 2 tab PO HS [facility] Last Admin: 11/17/19 22:00 Dose: 2 tab Documented by: Sevelamer Carbonate (Renvela -) 1,600 mg PO TIDCM [facility] Last Admin: 11/18/19 09:22 Dose: 1,600 mg Documented by: Sevelamer Carbonate (Renvela -) 1,600 mg PO 2100 [facility] Last Admin: 11/17/19 20:35 Dose: 1,600 mg Documented by: Zinc Sulfate (Orazinc -) 220 mg PO DAILY [facility] Last Admin: 11/18/19 09:27 Dose: 220 mg Documented by: - Objective Vital Signs: Vital Signs Temperature 97.8 F 11/18/19 06:20 Pulse Rate 109 H 11/18/19 06:20 Respiratory Rate 18 11/18/19 06:20 Blood Pressure 88/47 L 11/18/19 06:20 O2 Sat by Pulse Oximetry (%) 92 L 11/18/19 09:00 Cardiovascular: Yes: S1, S2 Respiratory: Yes: Regular, CTA Bilaterally Gastrointestinal: Yes: Normal Bowel Sounds, Soft Labs: CBC, BMP 11/18/19 08:15 11/18/19 08:15 INR, PTT INR 1.98 (0.83-1.09) H 11/18/19 08:15 Assessment/Plan - Problems (1) Liver metastasis Assessment/Plan: -Oncology consult -Liver biopsy -GI consult -Tumor markers -MRI abd results + metastatic disease -IR to do liver biopsy and paracentesis once INR <1.5 -Monitor daily INR -Vit K 10 mg SQ daily -Advance diet to low sodium diet Problems reviewed: Yes Code(s): C78.7 - SECONDARY MALIG NEOPLASM OF LIVER AND INTRAHEPATIC BILE DUCT (2) Abdominal pain Assessment/Plan: -resolved -PPI -Pain management with acetaminophen Problems reviewed: Yes Code(s): R10.9 - UNSPECIFIED ABDOMINAL PAIN Qualifiers: Abdominal location: generalized Qualified Code(s): R10.84 - Generalized abdominal pain (3) Anemia Assessment/Plan: -Likely 2/2 to liver disease + CKD -B12, thyroid+ iron unremarkable -Stool OB negative -Monitor trend, transfuse only if Hg<7.0 to avoid fluid overload Problems reviewed: Yes Code(s): D64.9 - ANEMIA, UNSPECIFIED (4) Anxiety about health Assessment/Plan: -Pastoral care and psychotherapy ordered -Alprazolam 0.25 mg po BID Problems reviewed: Yes Code(s): F41.8 - OTHER SPECIFIED ANXIETY DISORDERS
[2019-11-18] MEDS ORDERED: MIDODRINE HCL 2.5 MG TABLET PO SCH (14:10)
--- NOTE | 2019-11-18 14:10 | CONSULT ---
Consultation: REQUESTING PROVIDER: Dr. Espinal CONSULT REQUEST: We have been asked to medically evaluate this patient for persistently low BP values. HISTORY OF PRESENT ILLNESS: 73yo M with PMhx of ESRD (HD on M/W/F), Afib (on Eliquis), Anemia (2/2 ESRD and JACQUIE), HTN, HLD, PAD (s/p amputation), no history of HF, constipation and anxiety presenting with persistently low BP values. Per chart review, patient initially presented with abdominal pain after receiving his usual HD. Patient indicated that he had pain for some time and that a previous CT scan showed liver lesions. He also made note of increasingly dark stools that are now black in nature. Patient also endorsed epigastric burning that improved with medication. Pt. denies any, weight loss, chest pain, shortness of breath, pain on urination(oliguric), fever chills, cough, headache, changes in vision, worsening numbness tingling. Patient is not making urine. He furthermore stated that he would like to be DNR/DNI and that we should "let him ". When seen, patient was on 2L nasal canula satting 94%, was conversational but very weak and unable to follow commands. Repeated that he is nervous and afraid, including afraid of dying. REVIEW OF SYSTEMS: CONSTITUTIONAL: denied fevers and chills Absent: generalized weakness, thirst CARDIOVASCULAR: denied chest pain RESPIRATORY: denied difficulties breathing GASTROINTESTINAL: endorsed some abdominal discomfort MUSCULOSKELETAL: denied pain in LEs and UEs bilaterally ENDOCRINE: denied feeling unusually hot or cold PSYCHIATRIC: endorsed anxiety and depression PHYSICAL EXAMINATION Vital Signs - 24 hr 11/17/19 11/17/19 11/17/19 14:40 18:00 21:00 Temperature 98.0 F 97.3 F L Pulse Rate 73 103 H Respiratory 20 20 Rate Blood Pressure 86/54 L 91/45 L O2 Sat by Pulse 95 Oximetry (%) 11/18/19 11/18/19 11/18/19 01:00 06:20 09:00 Temperature 97.7 F 97.8 F Pulse Rate 97 H 109 H Respiratory 18 Rate Blood Pressure 87/58 L 88/47 L O2 Sat by Pulse 92 L Oximetry (%) 11/18/19 10:00 Temperature 97.8 F Pulse Rate 110 H Respiratory 18 Rate Blood Pressure 91/55 L O2 Sat by Pulse Oximetry (%) GENERAL: Awake, responsive, oriented to self and place but not to year. HEAD: Normal with no signs of trauma. Poor dentition. EYES: Pupils equal, round and reactive to light, R eye lid lag. Unable to follow commands for evaluation of extraocular muscles NECK: stiff neck and deviated to the left. Unable to extend or flex the neck, no lymphadenopathy or JVD or masses noted. LUNGS: Breath sounds equal, clear to auscultation bilaterally. No wheezes, and no crackles. HEART: sinus rhythm but irregular rate, normal S1 and S2 without murmur, rub or gallop. ABDOMEN: Soft, mildly tender, distended, active bowel sounds, no guarding, no rebound, no masses. Positive for shifting dullness UPPER EXTREMITIES: warm, well-perfused. Multiple scattered ecchymosis. No peripheral edema. Palpable pulses bilaterally. LOWER EXTREMITIES: warm, no calf tenderness. 2+ pitting edema bilaterally. L foot transmetatarsal amputation NEUROLOGICAL: Normal speech. unable to ambulate PSYCHIATRIC: Cooperative. poor eye contact. Depressed and anxious SKIN: Warm, no rashes or lesions noted. Scattered ecchymoses on UEs bilaterally Laboratory Results - last 24 hr 11/18/19 11/18/19 11/18/19 08:15 08:15 08:15 WBC 7.3 RBC 3.39 L Hgb 9.2 L Hct 30.1 L MCV 88.8 MCH 27.0 MCHC 30.4 L RDW 19.4 H Plt Count 133 L MPV 8.6 Absolute Neuts (auto) 5.6 Neutrophils % 75.7 Lymphocytes % 8.4 Monocytes % 7.0 Eosinophils % 8.0 H D Basophils % 0.9 Nucleated RBC % 0 PT with INR 23.50 H INR 1.98 H Sodium 133 L Potassium 5.1 Chloride 96 L Carbon Dioxide 21 Anion Gap 17 H BUN 61.4 H Creatinine 9.1 H* Est GFR (CKD-EPI)AfAm 5.97 Est GFR (CKD-EPI)NonAf 5.15 Random Glucose 51 L Calcium 8.3 L Total Bilirubin 1.7 H AST 318 H ALT 97 H Alkaline Phosphatase 535 H Total Protein 5.2 L Albumin 2.1 L Active Medications Generic Name Dose Route Start Last Admin Trade Name Freq PRN Reason Stop Dose Admin Albumin Human 12.5 gm 11/18/19 14:15 Albumin Human 25% IVPB 11/18/19 15:46 Q30M UDAY Alprazolam 0.25 mg 11/15/19 22:00 11/18/19 10:35 Xanax - PO 0.25 mg BID PRN Administration ANXIETY Ascorbic Acid 1,000 mg 11/15/19 23:11 11/18/19 09:25 Vitamin C - PO 1,000 mg DAILY UDAY Administration Bupropion HCl 150 mg 11/14/19 10:00 11/18/19 09:23 Wellbutrin Xl - PO 150 mg DAILY UDAY Administration Docusate Sodium 300 mg 11/14/19 22:00 11/17/19 22:00 Colace - PO 300 mg HS UDAY Administration Ferrous Sulfate 325 mg 11/14/19 10:00 11/18/19 09:26 Feosol - PO 325 mg DAILY UDAY Administration Fludrocortisone Acetate 0.2 mg 11/18/19 14:15 Florinef - PO DAILY UDAY Gabapentin 300 mg 11/14/19 10:00 11/18/19 09:26 Neurontin - PO 300 mg DAILY UDAY Administration Midodrine 5 mg 11/18/19 14:10 Proamatine - PO BID-MID UDAY Multivit/Ca Carb/B Cmplx/FA/Prenat 1 tablet 11/14/19 10:00 11/18/19 10:35 Nephro-Desi - PO 1 tablet DAILY [facility]DAY Administration Pantoprazole Sodium 40 mg 11/14/19 14:15 11/18/19 09:26 Protonix - PO 40 mg DAILY [facility]DAY Administration Phytonadione 10 mg 11/17/19 11:30 11/18/19 10:46 Aqua Mephyton Injection - SQ 10 mg DAILY [facility]DAY Administration Polyethylene Glycol 17 gm 11/14/19 10:00 11/18/19 09:27 Miralax (For Daily Use) - PO 17 gm DAILY UDAY Administration Senna 2 tab 11/14/19 22:00 11/17/19 22:00 Senna - PO 2 tab HS UDAY Administration Sevelamer Carbonate 1,600 mg 11/14/19 08:30 11/18/19 12:23 Renvela - PO 1,600 mg TIDCM UDAY Administration Sevelamer Carbonate 1,600 mg 11/14/19 21:00 11/17/19 20:35 Renvela - PO 1,600 mg 2100 UDAY Administration Zinc Sulfate 220 mg 11/14/19 10:00 11/18/19 09:27 Orazinc - PO 220 mg DAILY UDAY Administration ASSESSMENT/PLAN: 73yo M with PMhx of ESRD (HD on //), Afib (on Eliquis), Anemia (2/2 ESRD and JACQUIE), HTN, HLD, PAD (s/p amputation), constipation and anxiety presenting with persistently low BP values. Patient found to have liver mass, pending IR guided biopsy. Throughout the stay patient has remained hypotensive prompting ICU evaluation. Family has been unable to decide on final decision in regards to goals of care. #neuro AOx2, lethargic, depressed -psychology consulted #cardio hypotensive--autonomic dysfunction vs etiology to be determined afib on ?eliquis -currently not a candidate for fluid resuscitation given ESRD -start midodrine and titrate up for MAP >65 -start fludrocortisone and albumin -case discussed with renal (Dr. Sánchez) who agrees with the above management -case discussed with family at bedside and POA over the phone who re-states the patient is DNR/DNI; they will discuss with patient how aggressive they would like to be including central line placement and use of pressors. -hold antihypertensive medications -AC held in anticipation of liver biopsy #pulm supplemental O2 to maintain spO2 > 90% #renal ESRD on HD M/W/F hyperkalemia, resolved -nephrology consulted #GI abdominal pain, imagine suspicious for neoplastic lesion transaminitis, hyperbilirubinemia -HCV, FOBT negative -GI and oncology consulted -getting vitaminK for INR reversal -for IR biopsy #FEN -no standing fluids -low sodium diet -replete lytes PRN #PPX -DVT: SCDs, chemical AC held in anticipation for liver biopsy -GI: pantoprazole Dispo: Does not require ICU monitoring at this time given that family is not amenable to central line and pressors. We will continue to follow the patient. Thank you for this consultative opportunity. Visit type - Emergency Visit Emergency Visit: Yes ED Registration Date: 11/13/19 Care time: The patient presented to the Emergency Department on the above date and was hospitalized for further evaluation of their emergent condition. - New Patient This patient is new to me today: No - Critical Care Critical Care patient: Yes Total Critical Care Time (in minutes): 37 Critical Care Statement: The care of this patient involved high complexity decision making to prevent further life threatening deterioration of the patient's condition and/or to evaluate & treat vital organ system(s) failure or risk of failure. ATTENDING PHYSICIAN STATEMENT I saw and evaluated the patient. I reviewed the resident's note and discussed the case with the resident. I agree with the resident's findings and plan as documented. SUBJECTIVE: OBJECTIVE: ASSESSMENT AND PLAN:
[2019-11-18] MEDS: FLUDROCORTISONE ACETATE 0.1 MG TABLET (FP) PO SCH (15:07)
[2019-11-18] MEDS: MIDODRINE HCL 5 MG TABLET PO SCH (17:54)
[2019-11-18] MEDS: ALBUMIN HUMAN 25% 12.5 GM/50 ML VIAL IVPB SCH ×2 (18:40→20:07)
--- NOTE | 2019-11-18 23:06 | HOSP ---
Subjective - Review of Symptoms Events since last encounter: Hospitalist Encounter Notified by the primary RN that the patient is hypotensive 83/50 HR 114, was asked to assess Arrived to bedside, patient is somnolent but arousable to name, , place. Patient has no complaints. Per the RN BP now 96/52. Patient examined see EMR Plan: Continue Midodrine Will continue to monitor Physical Examination Vital Signs: Vital Signs Temperature 98.3 F 11/18/19 20:00 Pulse Rate 104 H 11/18/19 20:00 Respiratory Rate 11/18/19 20:00 Blood Pressure 94/40 L 11/18/19 20:00 O2 Sat by Pulse Oximetry (%) 92 L 11/18/19 09:00 Constitutional: Yes: Well Nourished, No Distress, Calm Eyes: Yes: Conjunctiva Clear, PERRL HENT: Yes: WNL, Atraumatic, Normocephalic Neck: Yes: WNL, Supple, Trachea Midline Cardiovascular: Yes: Pulse Irregular, S1, S2 Respiratory: Yes: Regular, CTA Bilaterally Gastrointestinal: Yes: Normal Bowel Sounds, Soft ...Rectal Exam: Yes: Deferred Extremities: Yes: Amputation (left toes) Edema: No Peripheral Pulses WNL: Yes Neurological: Yes: Lethargy Labs: CBC, BMP 11/18/19 08:15 11/18/19 08:15 Hospitalist Encounter Assessment: This is a 73 y/o man from [facility] with a significant medical history of ESRD (M,W,F), Afib (on Eliquis), HTN, HLD, PAD s/p amputation, ?HF, Anxiety. Admitted for Abdominal Pain. Recommendations/Interventions: PMD to discuss Goals of care with the HCP
[2019-11-18] MEDS: DOCUSATE SODIUM 100 MG CAPSULE (FP) PO SCH (23:15)
[2019-11-18] MEDS: SENNOSIDES 8.6MG TABLET (FP) PO SCH (23:15)
[2019-11-18] MEDS ORDERED: PT OWN MED DRAWER 7, Y5N ONE (23:41)
[2019-11-19] MEDS ORDERED: LORazepam 2 MG/ML SDV VIAL IVPB ONE (04:04)
[2019-11-19 09:00] LABS: BASO % 1.1 % (0-2.0); EOS % 3.5 % (0-4.5); HEMATOCRIT 29.8 % (35.4-49); HEMOGLOBIN 9.3 GM/dL (11.7-16.9); LYMPH % 9.2 % (8-40); MCH 27.8 pg (25.7-33.7); MCHC 31.4 g/dl (32.0-35.9); MEAN CELL VOLUME 88.8 fl (80-96); MEAN PLT VOLUME 8.4 fl (7.5-11.1); NEUT % 78.2 % (42.8-82.8); PLATELET COUNT 132 K/MM3 (134-434); RBC 3.36 M/mm3 (4.00-5.60); RDW 19.1 % (11.9-15.9); WHITE BLOOD COUNT 5.8 K/mm3 (4.0-10.0)
[2019-11-19 09:07] LABS: INR 1.95 (0.83-1.09); PROTHROMBIN TIME (PATIENT) 23.2 SEC (9.7-13.0)
[2019-11-19 09:39] LABS: ALBUMIN 2.4 g/dl (3.4-5.0); BILIRUBIN,TOTAL 1.8 mg/dL (0.2-1); BLOOD UREA NITROGEN 79.1 mg/dL (7-18); CALCIUM 8.6 mg/dL (8.5-10.1); TOT PROT 5.6 g/dl (6.4-8.2)
[2019-11-19 09:51] LABS: CREATININE 10.8 mg/dL (0.55-1.3)
[2019-11-19 10:33] LABS: ANISOCYTOSIS 1+; MACROCYTOSIS 1+; PLATELET ESTIMATE DECREASED; TARGET CELLS 2+
--- NOTE | 2019-11-19 10:52 | PN ---
Progress Note, Physician - Current Medication List Current Medications: Active Medications Alprazolam (Xanax -) 0.25 mg PO BID PRN PRN Reason: ANXIETY Last Admin: 11/18/19 10:35 Dose: 0.25 mg Documented by: Ascorbic Acid (Vitamin C -) 1,000 mg PO DAILY [facility] Last Admin: 11/18/19 09:25 Dose: 1,000 mg Documented by: Bupropion HCl (Wellbutrin Xl -) 150 mg PO DAILY [facility] Last Admin: 11/18/19 09:23 Dose: 150 mg Documented by: Docusate Sodium (Colace -) 300 mg PO HS [facility] Last Admin: 11/18/19 23:15 Dose: Not Given Documented by: Ferrous Sulfate (Feosol -) 325 mg PO DAILY [facility] Last Admin: 11/18/19 09:26 Dose: 325 mg Documented by: Fludrocortisone Acetate (Florinef -) 0.2 mg PO DAILY [facility] Last Admin: 11/18/19 15:07 Dose: 0.2 mg Documented by: Gabapentin (Neurontin -) 300 mg PO DAILY [facility] Last Admin: 11/18/19 09:26 Dose: 300 mg Documented by: Midodrine (Proamatine -) 5 mg PO BID-MID [facility] Last Admin: 11/18/19 17:54 Dose: 5 mg Documented by: Multivit/Ca Carb/B Cmplx/FA/Prenat (Nephro-Desi -) 1 tablet PO DAILY [facility] Last Admin: 11/18/19 10:35 Dose: 1 tablet Documented by: Pantoprazole Sodium (Protonix -) 40 mg PO DAILY [facility] Last Admin: 11/18/19 09:26 Dose: 40 mg Documented by: Phytonadione (Aqua Mephyton Injection -) 10 mg SQ DAILY [facility] Last Admin: 11/18/19 10:46 Dose: 10 mg Documented by: Polyethylene Glycol (Miralax (For Daily Use) -) 17 gm PO DAILY [facility] Last Admin: 11/18/19 09:27 Dose: 17 gm Documented by: Senna (Senna -) 2 tab PO [facility] Last Admin: 11/18/19 23:15 Dose: Not Given Documented by: Sevelamer Carbonate (Renvela -) 1,600 mg PO TIDCM [facility] Last Admin: 11/18/19 18:02 Dose: 1,600 mg Documented by: Sevelamer Carbonate (Renvela -) 1,600 mg PO 2100 [facility] Last Admin: 11/18/19 22:57 Dose: Not Given Documented by: Zinc Sulfate (Orazinc -) 220 mg PO DAILY [facility] Last Admin: 11/18/19 09:27 Dose: 220 mg Documented by: - Objective Vital Signs: Vital Signs Temperature 99 F 11/19/19 07:55 Pulse Rate 110 H 11/19/19 07:55 Respiratory Rate 15 11/19/19 07:55 Blood Pressure 94/57 L 11/19/19 07:55 O2 Sat by Pulse Oximetry (%) 97 11/18/19 21:00 Cardiovascular: Yes: Regular Rate and Rhythm Respiratory: Yes: Regular, CTA Bilaterally Gastrointestinal: Yes: Normal Bowel Sounds, Soft Labs: CBC, BMP 11/19/19 08:40 11/19/19 08:40 INR, PTT INR 1.95 (0.83-1.09) H 11/19/19 08:40 Assessment/Plan - Problems (1) Liver metastasis Assessment/Plan: -Oncology consult -Liver biopsy -GI consult -Tumor markers -MRI abd results + metastatic disease -IR to do liver biopsy and paracentesis once INR <1.5 -Monitor daily INR -Vit K 10 mg SQ daily -Advance diet to low sodium diet Problems reviewed: Yes Code(s): C78.7 - SECONDARY MALIG NEOPLASM OF LIVER AND INTRAHEPATIC BILE DUCT (2) Abdominal pain Assessment/Plan: -resolved -PPI -Pain management with acetaminophen Problems reviewed: Yes Code(s): R10.9 - UNSPECIFIED ABDOMINAL PAIN Qualifiers: Abdominal location: generalized Qualified Code(s): R10.84 - Generalized abdominal pain (3) Anemia Assessment/Plan: -Likely 2/2 to liver disease + CKD -B12, thyroid+ iron unremarkable -Stool OB negative -Monitor trend, transfuse only if Hg<7.0 to avoid fluid overload Problems reviewed: Yes Code(s): D64.9 - ANEMIA, UNSPECIFIED (4) Anxiety about health Assessment/Plan: -Pastoral care and psychotherapy ordered -Alprazolam 0.25 mg po BID Problems reviewed: Yes Code(s): F41.8 - OTHER SPECIFIED ANXIETY DISORDERS (5) Hypotension Assessment/Plan: -? etiology -avoid fluids for now -Monitor -Goals of care--to be decided by family--message left for son (6) ESRD Assessment/Plan: -Labs noted k 6--d/w renal
[2019-11-19 11:09] LABS: ARTERIAL BLD GAS O2 SATURATION 95.3 mmHg (95-98); ARTERIAL BLOOD GAS PO2 82.9 mmHg (80-100); ARTERIAL BLOOD GAS pH 7.304 (7.350-7.450)
[2019-11-19] MEDS: SEVELAMER CARBONATE 800 MG TAB (FP) PO SCH ×4 (11:14→21:10)
[2019-11-19] MEDS: FERROUS SO4 325 MG TABLET (FP) PO SCH (11:14)
[2019-11-19] MEDS: GABAPENTIN 300 MG CAPSULE PO SCH (11:15)
[2019-11-19] MEDS: FLUDROCORTISONE ACETATE 0.1 MG TABLET (FP) PO SCH (11:15)
[2019-11-19] MEDS: MIDODRINE HCL 5 MG TABLET PO SCH ×2 (11:15→17:30)
[2019-11-19] MEDS: VITAMIN B COMP W-C 1 EA TABLET (NEPHRO-VITE) PO SCH (11:15)
[2019-11-19] MEDS: POLYETHYLENE GLYCOL 3350 119 GM BTL PO SCH (11:15)
[2019-11-19] MEDS: ZINC SULFATE 220 MG CAPSULE (FP) PO SCH (11:15)
[2019-11-19 11:16] LABS: ALLENS TEST POSITIVE
[2019-11-19] MEDS: ASCORBIC ACID 500 MG TABLET (FP) PO SCH (11:16)
[2019-11-19] MEDS: PANTOPRAZOLE 40 MG TABLET PO SCH (11:16)
[2019-11-19] MEDS: PHYTONADIONE 10 MG/1 ML AMP SQ SCH (11:17)
--- NOTE | 2019-11-19 13:46 | PN ---
Teaching Attending Note Name of Resident: Eveline Lawler ATTENDING PHYSICIAN STATEMENT I saw and evaluated the patient. I reviewed the resident's note and discussed the case with the resident. I agree with the resident's findings and plan as documented. SUBJECTIVE: Pt lethargic but arousable. Blood pressures stable on midodrine. OBJECTIVE: Vital Signs Period Temp Pulse Resp BP Sys/Calvert Pulse Ox Last 24 Hr 97.4 F-99.8 F 104-121 8-20 83-131/40-67 95-97 Gen: lethargic but arousable Heart: tachycardic, regular Lung: decreased breath sounds at the bases Abd: soft, nontender Ext: no edema CBC, BMP 11/19/19 08:40 11/19/19 08:40 Active Medications Alprazolam (Xanax -) 0.25 mg PO BID PRN PRN Reason: ANXIETY Last Admin: 11/18/19 10:35 Dose: 0.25 mg Documented by: Ascorbic Acid (Vitamin C -) 1,000 mg PO DAILY [facility] Last Admin: 11/19/19 11:16 Dose: Not Given Documented by: Bupropion HCl (Wellbutrin Xl -) 150 mg PO DAILY [facility] Last Admin: 11/19/19 11:16 Dose: Not Given Documented by: Docusate Sodium (Colace -) 300 mg PO HS [facility] Last Admin: 11/18/19 23:15 Dose: Not Given Documented by: Ferrous Sulfate (Feosol -) 325 mg PO DAILY [facility] Last Admin: 11/19/19 11:14 Dose: Not Given Documented by: Fludrocortisone Acetate (Florinef -) 0.2 mg PO DAILY [facility] Last Admin: 11/19/19 11:15 Dose: Not Given Documented by: Gabapentin (Neurontin -) 300 mg PO DAILY [facility] Last Admin: 11/19/19 11:15 Dose: Not Given Documented by: Midodrine (Proamatine -) 5 mg PO BID-MID [facility] Last Admin: 11/19/19 11:15 Dose: Not Given Documented by: Multivit/Ca Carb/B Cmplx/FA/Prenat (Nephro-Desi -) 1 tablet PO DAILY [facility] Last Admin: 11/19/19 11:15 Dose: Not Given Documented by: Pantoprazole Sodium (Protonix -) 40 mg PO DAILY [facility] Last Admin: 11/19/19 11:16 Dose: Not Given Documented by: Phytonadione (Aqua Mephyton Injection -) 10 mg SQ DAILY [facility] Last Admin: 11/19/19 11:17 Dose: 10 mg Documented by: Polyethylene Glycol (Miralax (For Daily Use) -) 17 gm PO DAILY [facility] Last Admin: 11/19/19 11:15 Dose: Not Given Documented by: Senna (Senna -) 2 tab PO HS [facility] Last Admin: 11/18/19 23:15 Dose: Not Given Documented by: Sevelamer Carbonate (Renvela -) 1,600 mg PO TIDCM [facility] Last Admin: 11/19/19 11:14 Dose: Not Given Documented by: Sevelamer Carbonate (Renvela -) 1,600 mg PO 2100 [facility] Last Admin: 11/18/19 22:57 Dose: Not Given Documented by: Zinc Sulfate (Orazinc -) 220 mg PO DAILY [facility] Last Admin: 11/19/19 11:15 Dose: Not Given Documented by: ASSESSMENT AND PLAN: Hypotension of unclear source Suspect Metastatic disease from GI origin Elevated LFTs likely from above ESRD on HD Atrial Fibrillation PAD HTN Hyperlipidemia Anemia Thrombocytopenia - for IR guided biopsy - HD per renal - continue midodrine - check ammonia level - aspiration precautions - DVT prophylaxis - continue discussions regarding goals of care - can monitor on floor
--- NOTE | 2019-11-19 14:41 | PN ---
Progress Note (short form) - Note Progress Note: RENAL Asked to see patient for changes in mental status and hypotension attributable to his kidney disease Pt is arousable but very lethargic and not answering any questions Last Vital Signs Temp Pulse Resp BP Pulse Ox 98.6 F 107 H 16 94/63 95 11/19/19 11:28 11/19/19 11:28 11/19/19 11:28 11/19/19 11:28 11/19/19 09:00 lungs bilat air entry cvs s1s2 irreg, +diego abd soft ext no edema, has a fistula in left arm neuro lethargic CBC, BMP 11/19/19 08:40 11/19/19 08:40 Current Medications Generic Name Dose Route Start Last Admin Trade Name Freq PRN Reason Stop Dose Admin Alprazolam 0.25 mg 11/15/19 22:00 11/18/19 10:35 Xanax - PO 0.25 mg BID PRN Administration ANXIETY Ascorbic Acid 1,000 mg 11/15/19 23:11 11/19/19 11:16 Vitamin C - PO Not Given DAILY [facility] Bupropion HCl 150 mg 11/14/19 10:00 11/19/19 11:16 Wellbutrin Xl - PO Not Given DAILY [facility] Docusate Sodium 300 mg 11/14/19 22:00 11/18/19 23:15 Colace - PO Not Given HS [facility] Ferrous Sulfate 325 mg 11/14/19 10:00 11/19/19 11:14 Feosol - PO Not Given DAILY [facility] Fludrocortisone Acetate 0.2 mg 11/18/19 14:15 11/19/19 11:15 Florinef - PO Not Given DAILY [facility] Gabapentin 300 mg 11/14/19 10:00 11/19/19 11:15 Neurontin - PO Not Given DAILY [facility] Midodrine 5 mg 11/18/19 14:19 11/19/19 11:15 Proamatine - PO Not Given BID-MID [facility] Multivit/Ca Carb/B Cmplx/FA/Prenat 1 tablet 11/14/19 10:00 11/19/19 11:15 Nephro-Desi - PO Not Given DAILY [facility] Pantoprazole Sodium 40 mg 11/14/19 14:15 11/19/19 11:16 Protonix - PO Not Given DAILY [facility] Phytonadione 10 mg 11/17/19 11:30 11/19/19 11:17 Aqua Mephyton Injection - SQ 10 mg DAILY [facility] Administration Polyethylene Glycol 17 gm 11/14/19 10:00 11/19/19 11:15 Miralax (For Daily Use) - PO Not Given DAILY [facility] Senna 2 tab 11/14/19 22:00 11/18/19 23:15 Senna - PO Not Given HS [facility]DAY Sevelamer Carbonate 1,600 mg 11/14/19 08:30 11/19/19 14:02 Renvela - PO Not Given TIDCM [facility]DAY Sevelamer Carbonate 1,600 mg 11/14/19 21:00 11/18/19 22:57 Renvela - PO Not Given 2100 UDAY Zinc Sulfate 220 mg 11/14/19 10:00 11/19/19 11:15 Orazinc - PO Not Given DAILY [facility] 73 year old male with with history of ESRD on HD (MWF), atrial fibrilation on anticoagulation, hypertension, hyperlipidemia, anemia, heart failure presented with abdominal pain and found to have multiple masses on his liver. Has had a change in mental status 1. ESRD on HD 2. Abdominal pain 3. Suspected metastatic disease to the liver 4. Anemia in setting of CKD 5. Hypertension 6. Hyperlipidemia 7. Hx of HF 8. Renal osteodystrophy 9. ams - hepatic encephalopathy, uremia, infection or meds ammonia level pending will plan to dialyze tomorrow DNR status? check cultures, tsh avoid using meds that affect his mentation ie benzos and gabapentin Increase midodrine to 7.5 q8 if unchanged, transfer to icu [facility]
--- NOTE | 2019-11-19 15:25 | PN.HO ---
Progress Note (short form) - Note Progress Note: PAtient seen and examined VEry lethargic Not responding to commands Last Vital Signs Temp Pulse Resp BP Pulse Ox 98.6 F 107 H 16 94/63 95 11/19/19 11:28 11/19/19 11:28 11/19/19 11:28 11/19/19 11:28 11/19/19 09:00 Cor: RSR, No murmurs, No gallops Lungs: Clear to P&A Abd: Soft, Normal bowel sounds, No organomegaly Ext:No significant edema LAbs/Meds reviewed A/P 73 y/o gentleman admitted to evaluation of abdominal pain. He alludes to having an US performed while in [facility] that showed "spots on the liver". He takes eliquis, which he believes he took yesterday. There is no family history of colorectal cacner or other GI malignancy. CTA was performed revealing a liver with innumerable lesions. The radiologist described this as almost complete replacement of the liver with metastatic disease. Upper abdominal lymphadenopathy seen as well and areas of colon wall thickening of unclear etiology. Cirrhosis/liver nodules/ britt hepatis and retroperitoneal adenopathy. Lt. paraaortic /britt hepatis and retroperitoneal adenopathy splenic hypodensity on CT scan? embolic CEA and CA19.9 higly elevated Coagulopathic ? liver disease Eliquis on hold Lovenox on hold Getting Vit. K May need FFP prior to biopsy depending on INR Altered mental status : check head CT/ammonia level Neuro consult Consult palliative care team
[2019-11-19] MEDS: SENNOSIDES 8.6MG TABLET (FP) PO SCH (21:11)
[2019-11-19] MEDS: DOCUSATE SODIUM 100 MG CAPSULE (FP) PO SCH (21:11)
[2019-11-19] MEDS: LACTULOSE 20 GM/30 ML UDC (FOR RECTAL USE ONLY) PR ONE ×2 (23:11→23:27)
[2019-11-20] MEDS: SEVELAMER CARBONATE 800 MG TAB (FP) PO SCH ×4 (08:29→21:40)
--- NOTE | 2019-11-20 10:35 | PN ---
Progress Note (short form) - Note Progress Note: Gastroenterology note: Pt with altered mental status yesterday Vital Signs Period Temp Pulse Resp BP Sys/Calvert Pulse Ox Last 24 Hr 97.9 F-99.2 F 71-114 10-18 92-109/51-63 98 ABD: soft, obese, Mild RUQ tenderness CBC, BMP 11/19/19 08:40 11/19/19 08:40 Laboratory Tests 11/19/19 11/19/19 11/19/19 08:40 08:40 16:11 WBC 5.8 PT with INR 23.20 H INR 1.95 H Ammonia 83.90 H <Farhana Power - Last Filed: 11/20/19 15:35> - Note Progress Note: AGREE WITH ASSESSMENT AND PLAN OUTLINED ABOVE. <Namita Peraza - Last Filed: 11/20/19 17:47> Problem List - Problems (1) Abdominal pain Assessment/Plan: Dr. Espinal to d/w the pts family further care he remains DNR/DNI. Pt awaiting IR guided liver biopsy to evaluate live masses and now with acute mental status change, head ct scan-negative. Pt's confusion improved, ammonia level elevated and pt given Lactulose x 1 yesterday. D/w Dr. Peraza and recommend to continue maintenance dose of lactulose 20mg oral TID and rifaximin 500mg po bid Code(s): R10.9 - UNSPECIFIED ABDOMINAL PAIN Qualifiers: Abdominal location: generalized Qualified Code(s): R10.84 - Generalized abdominal pain <Farhana Power - Last Filed: 11/20/19 15:35> - Problems (1) Abdominal pain Code(s): R10.9 - UNSPECIFIED ABDOMINAL PAIN Qualifiers: Abdominal location: generalized Qualified Code(s): R10.84 - Generalized abdominal pain (2) Anemia Code(s): D64.9 - ANEMIA, UNSPECIFIED (3) Liver metastasis Code(s): C78.7 - SECONDARY MALIG NEOPLASM OF LIVER AND INTRAHEPATIC BILE DUCT <Namita Peraza - Last Filed: 11/20/19 17:47>
[2019-11-20] MEDS ORDERED: SODIUM ZIRCONIUM CYCLOSILICATE (LOKELMA) 5 GM PACKET PO SCH (11:30)
[2019-11-20] MEDS: PHYTONADIONE 10 MG/1 ML AMP SQ SCH (11:57)
[2019-11-20] MEDS: FLUDROCORTISONE ACETATE 0.1 MG TABLET (FP) PO SCH (11:57)
[2019-11-20] MEDS: FERROUS SO4 325 MG TABLET (FP) PO SCH (11:57)
[2019-11-20] MEDS: GABAPENTIN 300 MG CAPSULE PO SCH (11:58)
[2019-11-20] MEDS: VITAMIN B COMP W-C 1 EA TABLET (NEPHRO-VITE) PO SCH (11:58)
[2019-11-20] MEDS: POLYETHYLENE GLYCOL 3350 119 GM BTL PO SCH (11:58)
[2019-11-20] MEDS: ZINC SULFATE 220 MG CAPSULE (FP) PO SCH (11:59)
[2019-11-20] MEDS: MIDODRINE HCL 5 MG TABLET PO SCH ×2 (12:00→17:23)
[2019-11-20] MEDS: PANTOPRAZOLE 40 MG TABLET PO SCH (12:00)
[2019-11-20] MEDS: ASCORBIC ACID 500 MG TABLET (FP) PO SCH (12:01)
[2019-11-20 12:13] LABS: BASO % 0.7 % (0-2.0); EOS % 2.4 % (0-4.5); HEMATOCRIT 29.5 % (35.4-49); HEMOGLOBIN 9.3 GM/dL (11.7-16.9); MCH 28.1 pg (25.7-33.7); MCHC 31.7 g/dl (32.0-35.9); MEAN CELL VOLUME 88.7 fl (80-96); MEAN PLT VOLUME 8.3 fl (7.5-11.1); MONO % 7.8 % (3.8-10.2); NEUT % 80.1 % (42.8-82.8); PLATELET COUNT 124 K/MM3 (134-434); RBC 3.33 M/mm3 (4.00-5.60); RDW 19.2 % (11.9-15.9); WHITE BLOOD COUNT 8.1 K/mm3 (4.0-10.0)
[2019-11-20 12:26] LABS: INR 1.88 (0.83-1.09); PROTHROMBIN TIME (PATIENT) 22.3 SEC (9.7-13.0)
[2019-11-20 12:44] LABS: ALBUMIN 2.2 g/dl (3.4-5.0); BILIRUBIN,TOTAL 1.8 mg/dL (0.2-1); BLOOD UREA NITROGEN 87.7 mg/dL (7-18); CALCIUM 8.3 mg/dL (8.5-10.1); TOT PROT 5.4 g/dl (6.4-8.2)
[2019-11-20] MEDS ORDERED: PHYTONADIONE 10 MG/1 ML AMP SQ ONE (12:44)
--- NOTE | 2019-11-20 12:45 | PN ---
Progress Note, Physician Chief Complaint: Abdominal pain History of Present Illness: Seen and examined during dialysis awake but confused mental status has been poor since yesterday awaiting dialysis today pt not able to give history - Current Medication List Current Medications: Active Medications Alprazolam (Xanax -) 0.25 mg PO BID PRN PRN Reason: ANXIETY Last Admin: 11/18/19 10:35 Dose: 0.25 mg Documented by: Ascorbic Acid (Vitamin C -) 1,000 mg PO DAILY [facility] Last Admin: 11/20/19 12:01 Dose: Not Given Documented by: Bupropion HCl (Wellbutrin Xl -) 150 mg PO DAILY [facility] Last Admin: 11/20/19 12:01 Dose: Not Given Documented by: Docusate Sodium (Colace -) 300 mg PO HS [facility] Last Admin: 11/19/19 21:11 Dose: Not Given Documented by: Ferrous Sulfate (Feosol -) 325 mg PO DAILY [facility] Last Admin: 11/20/19 11:57 Dose: Not Given Documented by: Fludrocortisone Acetate (Florinef -) 0.2 mg PO DAILY [facility] Last Admin: 11/20/19 11:57 Dose: Not Given Documented by: Gabapentin (Neurontin -) 300 mg PO DAILY [facility] Last Admin: 11/20/19 11:58 Dose: Not Given Documented by: Sodium Chloride (Normal Saline -) 250 mls @ 3,000 mls/hr IV PRN PRN PRN Reason: Hypotension during Dialysis Stop: 11/20/19 14:45 Lactulose (Cephulac (Oral Use)) 20 gm PO TID [facility] Midodrine (Proamatine -) 5 mg PO BID-MID [facility] Last Admin: 11/20/19 12:00 Dose: Not Given Documented by: Multivit/Ca Carb/B Cmplx/FA/Prenat (Nephro-Desi -) 1 tablet PO DAILY [facility] Last Admin: 11/20/19 11:58 Dose: Not Given Documented by: Pantoprazole Sodium (Protonix -) 40 mg PO DAILY [facility] Last Admin: 11/20/19 12:00 Dose: Not Given Documented by: Phytonadione (Aqua Mephyton Injection -) 10 mg SQ DAILY [facility] Last Admin: 11/20/19 11:57 Dose: 10 mg Documented by: Polyethylene Glycol (Miralax (For Daily Use) -) 17 gm PO DAILY [facility] Last Admin: 11/20/19 11:58 Dose: Not Given Documented by: Senna (Senna -) 2 tab PO HS [facility] Last Admin: 11/19/19 21:11 Dose: Not Given Documented by: Sevelamer Carbonate (Renvela -) 1,600 mg PO TIDCM [facility] Last Admin: 11/20/19 12:01 Dose: Not Given Documented by: Sevelamer Carbonate (Renvela -) 1,600 mg PO 2100 [facility] Last Admin: 11/19/19 21:10 Dose: Not Given Documented by: Zinc Sulfate (Orazinc -) 220 mg PO DAILY [facility] Last Admin: 11/20/19 11:59 Dose: Not Given Documented by: - Objective Vital Signs: Vital Signs Temperature 98.9 F 11/20/19 10:07 Pulse Rate 108 H 11/20/19 10:07 Respiratory Rate 18 11/20/19 10:07 Blood Pressure 100/56 L 11/20/19 10:07 O2 Sat by Pulse Oximetry (%) 98 11/19/19 21:00 Constitutional: Yes: No Distress HENT: Yes: Atraumatic Neck: Yes: Supple Cardiovascular: Yes: Regular Rate and Rhythm Respiratory: Yes: Regular Gastrointestinal: Yes: Soft Extremities: No: Cyanosis Edema: No Neurological: Yes: Alert. No: Oriented Labs: CBC, BMP 11/20/19 10:45 INR, PTT INR 1.88 (0.83-1.09) H 11/20/19 10:45 Assessment/Plan 73 year old male with with history of ESRD on HD (MWF), atrial fibri lation on anticoagulation, hypertension, hyperlipidemia, anemia, heart failure presented with abdominal pain and found to have multiple masses on his liver. Last dialysis was yesterday. 1. ESRD on HD 2. Abdominal pain 3. Suspected metastatic disease to the liver 4. Anemia in setting of CKD 5. Hypertension 6. Hyperlipidemia 7. Hx of HF 8. Renal osteodystrophy Pt will need dialysis today to mange hyperkalemia and high ammonia levels will reaccess tomorrow for further HD if pt remains confused continue lactulose a ordered awaiting biopsy once INR is low enough DNR/DNI Thank you Cory Bowden DO
--- NOTE | 2019-11-20 12:46 | PN ---
Progress Note, Physician Chief Complaint: Abdominal pain History of Present Illness: CTAP multiple liver lesions likely metastatic disease Awaiting IR to perform liver biopsy once INR <1.5 Last Eliquis dose on 11/13/19, on Lovenox BID Received Vitamin K 5 mg po once MRI abd: Markedly limited exam of poor diagnostic value due to significant motion and lack of IV contrast. Within the limitations of the exam, markedly heterogeneous and nodular liver is noted with honeycombing could be secondary to advanced liver cirrhosis with nodular regeneration however scattered foci of restricted diffusion seen suspicious for dysplastic or neoplastic lesions. Underlying infiltrate neoplastic disease cannot be excluded. Contrast is suggested for better evaluation. Nonspecific britt hepatis and retroperitoneal adenopathy which could be reactive, neoplastic/metastatic or lymphoproliferative disorder. Third spacing suggested by diffuse subcutaneous and mesenteric edema and small perihepatic and perisplenic ascites. Splenomegaly - portal hypertension. 1.4 cm pancreatic neck/proximal pancreatic tail lesion with corresponding nodule seen on CT scan. This is of indeterminate nature and not characterized on this exam. This could represent pancreatic neoplasm or an adjacent lymph node. Follow-up is recommended. Intra and extrahepatic biliary tree not visualized possibly due to nondistention from lack of appreciable bile secondary to hepatic failure. Severely atrophic right kidney. 3.5 cm left renal cyst. NAD Lethargic AMS over the weekend CT head unremarkable Ammonia level elevated, given lactulose once ND yesterday, mental status improved as per RN Due for dialysis today Is able to tell me his name and that he's in [facility] - Current Medication List Current Medications: Active Medications Alprazolam (Xanax -) 0.25 mg PO BID PRN PRN Reason: ANXIETY Last Admin: 11/18/19 10:35 Dose: 0.25 mg Documented by: Ascorbic Acid (Vitamin C -) 1,000 mg PO DAILY [facility] Last Admin: 11/20/19 12:01 Dose: Not Given Documented by: Bupropion HCl (Wellbutrin Xl -) 150 mg PO DAILY [facility] Last Admin: 11/20/19 12:01 Dose: Not Given Documented by: Docusate Sodium (Colace -) 300 mg PO HS [facility] Last Admin: 11/19/19 21:11 Dose: Not Given Documented by: Ferrous Sulfate (Feosol -) 325 mg PO DAILY [facility] Last Admin: 11/20/19 11:57 Dose: Not Given Documented by: Fludrocortisone Acetate (Florinef -) 0.2 mg PO DAILY [facility] Last Admin: 11/20/19 11:57 Dose: Not Given Documented by: Gabapentin (Neurontin -) 300 mg PO DAILY [facility] Last Admin: 11/20/19 11:58 Dose: Not Given Documented by: Sodium Chloride (Normal Saline -) 250 mls @ 3,000 mls/hr IV PRN PRN PRN Reason: Hypotension during Dialysis Stop: 11/20/19 14:45 Lactulose (Cephulac (Oral Use)) 20 gm PO TID [facility] Midodrine (Proamatine -) 5 mg PO BID-MID [facility] Last Admin: 11/20/19 12:00 Dose: Not Given Documented by: Multivit/Ca Carb/B Cmplx/FA/Prenat (Nephro-Desi -) 1 tablet PO DAILY [facility] Last Admin: 11/20/19 11:58 Dose: Not Given Documented by: Pantoprazole Sodium (Protonix -) 40 mg PO DAILY [facility] Last Admin: 11/20/19 12:00 Dose: Not Given Documented by: Phytonadione (Aqua Mephyton Injection -) 10 mg SQ DAILY [facility] Last Admin: 11/20/19 11:57 Dose: 10 mg Documented by: Polyethylene Glycol (Miralax (For Daily Use) -) 17 gm PO DAILY [facility] Last Admin: 11/20/19 11:58 Dose: Not Given Documented by: Senna (Senna -) 2 tab PO HS [facility] Last Admin: 11/19/19 21:11 Dose: Not Given Documented by: Sevelamer Carbonate (Renvela -) 1,600 mg PO TIDCM [facility] Last Admin: 11/20/19 12:01 Dose: Not Given Documented by: Sevelamer Carbonate (Renvela -) 1,600 mg PO 2100 [facility] Last Admin: 11/19/19 21:10 Dose: Not Given Documented by: Zinc Sulfate (Orazinc -) 220 mg PO DAILY [facility] Last Admin: 11/20/19 11:59 Dose: Not Given Documented by: - Objective Vital Signs: Vital Signs Temperature 98.9 F 11/20/19 10:07 Pulse Rate 108 H 11/20/19 10:07 Respiratory Rate 18 11/20/19 10:07 Blood Pressure 100/56 L 11/20/19 10:07 O2 Sat by Pulse Oximetry (%) 98 11/19/19 21:00 Constitutional: Yes: Well Nourished, No Distress, Calm Cardiovascular: Yes: Regular Rate and Rhythm Respiratory: Yes: Regular, Diminished Gastrointestinal: Yes: Normal Bowel Sounds, Soft, Ascites Genitourinary: Yes: Incontinence Musculoskeletal: Yes: Muscle Weakness Extremities: Yes: WNL Edema: No Peripheral Pulses WNL: Yes Neurological: Yes: Alert, Lethargy Psychiatric: Yes: Alert Labs: CBC, BMP 11/20/19 10:45 INR, PTT INR 1.88 (0.83-1.09) H 11/20/19 10:45 Problem List - Problems (1) Liver metastasis Assessment/Plan: -Oncology consult -Liver biopsy -GI consult -Tumor markers -MRI abd results + metastatic disease -IR to do liver biopsy and paracentesis once INR <1.5 -Monitor daily INR -Vit K 10 mg SQ daily + additional 10 mg SQ once now -Advance diet to low sodium diet Problems reviewed: Yes Code(s): C78.7 - SECONDARY MALIG NEOPLASM OF LIVER AND INTRAHEPATIC BILE DUCT (2) Abdominal pain Assessment/Plan: -resolved -PPI -Pain management with acetaminophen Problems reviewed: Yes Code(s): R10.9 - UNSPECIFIED ABDOMINAL PAIN Qualifiers: Abdominal location: generalized Qualified Code(s): R10.84 - Generalized abdominal pain (3) Anemia Assessment/Plan: -Likely 2/2 to liver disease + CKD -B12, thyroid+ iron unremarkable -Stool OB negative -Monitor trend, transfuse only if Hg<7.0 to avoid fluid overload Problems reviewed: Yes Code(s): D64.9 - ANEMIA, UNSPECIFIED (4) Anxiety about health Assessment/Plan: -Pastoral care and psychotherapy ordered -Hold Alprazolam 0.25 mg po BID Problems reviewed: Yes Code(s): F41.8 - OTHER SPECIFIED ANXIETY DISORDERS (5) Hepatic encephalopathy Assessment/Plan: -Lactulose ND TID to have 3-4 BM's/day Problems reviewed: Yes Code(s): K72.90 - HEPATIC FAILURE, UNSPECIFIED WITHOUT COMA (6) Hypotension Assessment/Plan: -Midodrine+ Florinef -Monitor trend Problems reviewed: Yes Code(s): I95.9 - HYPOTENSION, UNSPECIFIED (7) ESRD (end stage renal disease) on dialysis Assessment/Plan: -Nephrology on [facility] Problems reviewed: Yes Code(s): N18.6 - END STAGE RENAL DISEASE; Z99.2 - DEPENDENCE ON RENAL DIALYSIS Assessment/Plan See problem list Spoke to KEESHA Mesa to update pt status. They wish to go ahead with liver biopsy but are apprehensive about any possible treatments given the poor prognosis.
[2019-11-20 13:16] LABS: CREATININE 12.5 mg/dL (0.55-1.3); POTASSIUM 6.1 mmol/L (3.5-5.1)
--- NOTE | 2019-11-20 13:17 | PN ---
Progress Note (short form) - Note Progress Note: More awake and responsive. No CP or SOB. No acute events overnight. Intake & Output 11/17/19 11/18/19 11/19/19 11/20/19 23:59 23:59 23:59 23:59 Intake Total 700 300 10 0 Output Total 1070 Balance -370 300 10 0 Weight 229 lb 4.492 oz 266 lb 9.6 oz Last Vital Signs Temp Pulse Resp BP Pulse Ox 98.9 F 108 H 18 100/56 L 98 11/20/19 10:07 11/20/19 10:07 11/20/19 10:07 11/20/19 10:07 11/19/19 21:00 Active Medications Ascorbic Acid (Vitamin C -) 1,000 mg PO DAILY [facility] Last Admin: 11/20/19 12:01 Dose: Not Given Documented by: Bupropion HCl (Wellbutrin Xl -) 150 mg PO DAILY [facility] Last Admin: 11/20/19 12:01 Dose: Not Given Documented by: Docusate Sodium (Colace -) 300 mg PO HS [facility] Last Admin: 11/19/19 21:11 Dose: Not Given Documented by: Ferrous Sulfate (Feosol -) 325 mg PO DAILY [facility] Last Admin: 11/20/19 11:57 Dose: Not Given Documented by: Fludrocortisone Acetate (Florinef -) 0.2 mg PO DAILY [facility] Last Admin: 11/20/19 11:57 Dose: Not Given Documented by: Gabapentin (Neurontin -) 300 mg PO DAILY [facility] Last Admin: 11/20/19 11:58 Dose: Not Given Documented by: Sodium Chloride (Normal Saline -) 250 mls @ 3,000 mls/hr IV PRN PRN PRN Reason: Hypotension during Dialysis Stop: 11/20/19 14:45 Lactulose (Cephulac (Oral Use)) 20 gm PO TID [facility] Midodrine (Proamatine -) 5 mg PO BID-MID [facility] Last Admin: 11/20/19 12:00 Dose: Not Given Documented by: Multivit/Ca Carb/B Cmplx/FA/Prenat (Nephro-Desi -) 1 tablet PO DAILY [facility] Last Admin: 11/20/19 11:58 Dose: Not Given Documented by: Pantoprazole Sodium (Protonix -) 40 mg PO DAILY [facility] Last Admin: 11/20/19 12:00 Dose: Not Given Documented by: Phytonadione (Aqua Mephyton Injection -) 10 mg SQ DAILY [facility] Last Admin: 11/20/19 11:57 Dose: 10 mg Documented by: Polyethylene Glycol (Miralax (For Daily Use) -) 17 gm PO DAILY [facility] Last Admin: 11/20/19 11:58 Dose: Not Given Documented by: Senna (Senna -) 2 tab PO HS [facility] Last Admin: 11/19/19 21:11 Dose: Not Given Documented by: Sevelamer Carbonate (Renvela -) 1,600 mg PO TIDCM [facility] Last Admin: 11/20/19 12:01 Dose: Not Given Documented by: Sevelamer Carbonate (Renvela -) 1,600 mg PO 2100 [facility] Last Admin: 11/19/19 21:10 Dose: Not Given Documented by: Zinc Sulfate (Orazinc -) 220 mg PO DAILY [facility] Last Admin: 11/20/19 11:59 Dose: Not Given Documented by: Gen: NAD Heart: S1S2 Lung: decreased breath sounds at the bases Abd: soft, nontender Ext: no edema Laboratory Results - last 24 hr 11/19/19 11/20/19 11/20/19 16:11 10:45 10:45 WBC 8.1 RBC 3.33 L Hgb 9.3 L Hct 29.5 L MCV 88.7 MCH 28.1 MCHC 31.7 L RDW 19.2 H Plt Count 124 L MPV 8.3 Absolute Neuts (auto) 6.5 Neutrophils % 80.1 Lymphocytes % 9.0 Monocytes % 7.8 Eosinophils % 2.4 Basophils % 0.7 Nucleated RBC % 0 PT with INR 22.30 H INR 1.88 H Sodium Chloride Carbon Dioxide Anion Gap BUN Est GFR (CKD-EPI)AfAm Est GFR (CKD-EPI)NonAf Random Glucose Calcium Total Bilirubin AST ALT Alkaline Phosphatase Ammonia 83.90 H Total Protein Albumin 11/20/19 11/20/19 10:45 10:45 WBC RBC Hgb Hct MCV MCH MCHC RDW Plt Count MPV Absolute Neuts (auto) Neutrophils % Lymphocytes % Monocytes % Eosinophils % Basophils % Nucleated RBC % PT with INR INR Sodium 136 Chloride 97 L Carbon Dioxide 16 L Anion Gap 22 H BUN 87.7 H Est GFR (CKD-EPI)AfAm 4.07 Est GFR (CKD-EPI)NonAf 3.51 Random Glucose 53 L Calcium 8.3 L Total Bilirubin 1.8 H AST 272 H ALT 82 H Alkaline Phosphatase 388 H Ammonia 64.70 H Total Protein 5.4 L Albumin 2.2 L ASSESSMENT AND PLAN: Hypotension of unclear etiology : resolving Suspect Metastatic disease from GI origin Elevated LFTs likely from above ESRD on HD Atrial Fibrillation PAD HTN Hyperlipidemia Anemia Thrombocytopenia - for IR guided biopsy - HD per renal - continue midodrine - aspiration precautions - DVT prophylaxis - DNR / DNI Dr Medrano
[2019-11-20] MEDS ORDERED: LACTULOSE 20 GM/30 ML UDC (FOR ORAL USE ONLY) PO SCH (14:00)
[2019-11-20] MEDS: ALBUMIN HUMAN 25% 12.5 GM/50 ML VIAL IVPB SCH ×4 (14:00→15:56)
[2019-11-20] MEDS ORDERED: SODIUM CHLORIDE 250 ML IV PRN ×2 (14:23→14:45)
--- NOTE | 2019-11-20 14:23 | PN ---
Progress Note (short form) - Note Progress Note: The patient could not be spoken with due to his getting dialysis at this time. However, his nurse indicated that his mental status appeared to be compromised and he therefore was not cooperative with examinations. His family was in house at this time and this psychologist is available to speak with them if they desire to do so. 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
[2019-11-20 15:44] LABS: INR 1.84 (0.83-1.09); PROTHROMBIN TIME (PATIENT) 21.8 SEC (9.7-13.0)
[2019-11-20 15:55] VITALS: BMI 36.1
[2019-11-20 15:57] LABS: BLOOD UREA NITROGEN 95.6 mg/dL (7-18); CALCIUM 8.4 mg/dL (8.5-10.1)
[2019-11-20 16:09] LABS: CREATININE 12.7 mg/dL (0.55-1.3); POTASSIUM 6.1 mmol/L (3.5-5.1)
--- NOTE | 2019-11-20 19:50 | CONSULT ---
Consult - text type - Consultation Consultation Note: NEUROLOGY CONSULTATION is greatly appreciated: Events reviewed and discussed withRN. This 73 yo RH man with HTN, Chol, ASHD, PVD, Afib, depression, anemia and ESRD- on HD is an [facility] resident. Maintained on: apixaban, atorvastatin, bupropion, FeSO4, Renvela requires high- doses of acetaminophen as well as gabapentin, and oxycodone for pain. Admitted with increasing abdominal pain and fear that his "liver was failing." Indeed, work-up showed marked elevation in transaminses, Alk Phos, and a very large, nodular liver with splenomegally, portal hypertension and pancreatic cyst Now, with increased confusion, lethargy. CT of head (reviewed): Moderate, diffuse atrophy Ammonia level= 83.9 mg%, Hep A Ab+. TSH= 3.82 LEISA: Neck supple. No carotid bruits. Protuberant Abdomen. AV Fistula. Liver 4 FB BCM Left forefoot amputations NEURO: Lethargic but arouses to name [facility]"hospital be"[facility]. No month or year Dysarthric, sparse, speech Left exotropia. Full EOM's. Full bañuelos to threat. No facial. Gag reduced No drift. Ankle dorsiflexion 4-/5. Probable proximal weakness. Areflexia. No asterixis/Myoclonus. Brisk Left Babinski Feels pinch all fours no vibration below knees. IMP: Non-focal exam sig for moderately severe, B/L cerebral dysfunction c/w Hepatic Encephalopathy. Etiology? Acetominophen toxicity Moderately severe Peripheral Neuropathy Chronic pain most likely due to ESRD/HD-related Restless Limbs Syndrome (RLS). SUGGEST: Continue lactulose, low protein diet. R/O GI Bleed W/U and Rx possible hypothyroidism. Continue HD and supportive care. D/C acetominophen, gabapentin, narcotics. Thank you very much, Omega Phelps MD
[2019-11-20] MEDS ORDERED: PT OWN MED DRAWER 7, Y5N ONE (21:38)
[2019-11-20] MEDS ORDERED: LACTULOSE 20 GM/30 ML UDC (FOR RECTAL USE ONLY) PR SCH (22:00)
[2019-11-20] MEDS: LACTULOSE 20 GM/30 ML UDC (FOR RECTAL USE ONLY) PR SCH (22:06)
[2019-11-20] MEDS: DOCUSATE SODIUM 100 MG CAPSULE (FP) PO SCH (22:45)
[2019-11-20] MEDS: SENNOSIDES 8.6MG TABLET (FP) PO SCH (22:46)
[2019-11-21] MEDS: LACTULOSE 20 GM/30 ML UDC (FOR RECTAL USE ONLY) PR SCH ×2 (05:11→14:32)
[2019-11-21] MEDS ORDERED: ACETAMINOPHEN 650 MG SUPP.RECT RC PRN (07:57)
[2019-11-21 07:58] LABS: BASO % 0.7 % (0-2.0); EOS % 2.3 % (0-4.5); HEMATOCRIT 30.7 % (35.4-49); HEMOGLOBIN 9.7 GM/dL (11.7-16.9); LYMPH % 7.3 % (8-40); MCH 27.8 pg (25.7-33.7); MCHC 31.4 g/dl (32.0-35.9); MEAN CELL VOLUME 88.5 fl (80-96); MEAN PLT VOLUME 8.4 fl (7.5-11.1); MONO % 7.3 % (3.8-10.2); NEUT % 82.4 % (42.8-82.8); PLATELET COUNT 106 K/MM3 (134-434); RBC 3.47 M/mm3 (4.00-5.60); RDW 19.8 % (11.9-15.9)
[2019-11-21 08:11] LABS: ALBUMIN 2.4 g/dl (3.4-5.0); BILIRUBIN,TOTAL 2.3 mg/dL (0.2-1); BLOOD UREA NITROGEN 73.7 mg/dL (7-18); CALCIUM 8.3 mg/dL (8.5-10.1); POTASSIUM 5.6 mmol/L (3.5-5.1); TOT PROT 5.5 g/dl (6.4-8.2)
[2019-11-21 08:16] LABS: CREATININE 11.2 mg/dL (0.55-1.3)
[2019-11-21 08:46] LABS: INR 1.96 (0.83-1.09); PROTHROMBIN TIME (PATIENT) 23.3 SEC (9.7-13.0)
[2019-11-21] MEDS: SEVELAMER CARBONATE 800 MG TAB (FP) PO SCH ×4 (09:17→21:28)
[2019-11-21] MEDS: PANTOPRAZOLE SODIUM 40 MG VIAL IVPUSH SCH (09:20)
[2019-11-21] MEDS: PHYTONADIONE 10 MG/1 ML AMP SQ SCH (09:21)
[2019-11-21] MEDS ORDERED: SODIUM CHLORIDE 250 ML IV PRN (12:17)
[2019-11-21] MEDS: ALBUMIN HUMAN 25% 12.5 GM/50 ML VIAL IVPB SCH ×4 (12:35→12:40)
[2019-11-21] MEDS ORDERED: LACTULOSE 20 GM/30 ML UDC (FOR ORAL USE ONLY) PO ONE (13:42)
--- NOTE | 2019-11-21 14:10 | PN ---
Progress Note, Physician Chief Complaint: Abdominal pain History of Present Illness: CTAP multiple liver lesions likely metastatic disease Awaiting IR to perform liver biopsy once INR <1.5 Last Eliquis dose on 11/13/19, on Lovenox BID Received Vitamin K 5 mg po once MRI abd: Markedly limited exam of poor diagnostic value due to significant motion and lack of IV contrast. Within the limitations of the exam, markedly heterogeneous and nodular liver is noted with honeycombing could be secondary to advanced liver cirrhosis with nodular regeneration however scattered foci of restricted diffusion seen suspicious for dysplastic or neoplastic lesions. Underlying infiltrate neoplastic disease cannot be excluded. Contrast is suggested for better evaluation. Nonspecific britt hepatis and retroperitoneal adenopathy which could be reactive, neoplastic/metastatic or lymphoproliferative disorder. Third spacing suggested by diffuse subcutaneous and mesenteric edema and small perihepatic and perisplenic ascites. Splenomegaly - portal hypertension. 1.4 cm pancreatic neck/proximal pancreatic tail lesion with corresponding nodule seen on CT scan. This is of indeterminate nature and not characterized on this exam. This could represent pancreatic neoplasm or an adjacent lymph node. Follow-up is recommended. Intra and extrahepatic biliary tree not visualized possibly due to nondistention from lack of appreciable bile secondary to hepatic failure. Severely atrophic right kidney. 3.5 cm left renal cyst. AMS over the weekend CT head unremarkable NAD today Much more awake Knows his name, his god daughter's name and that he's in the hospital Ammonia Levels trending down Had dialysis today INR still at 1.96 after giving him Vit K 20 mcg SQ yesterday - Current Medication List Current Medications: Active Medications Acetaminophen (Tylenol Suppository -) 650 mg RC DAILY PRN PRN Reason: FEVER Last Admin: 11/21/19 09:21 Dose: 650 mg Documented by: Bupropion HCl (Wellbutrin Xl -) 150 mg PO DAILY [facility] Last Admin: 11/20/19 12:01 Dose: Not Given Documented by: Fludrocortisone Acetate (Florinef -) 0.2 mg PO DAILY [facility] Last Admin: 11/20/19 11:57 Dose: Not Given Documented by: Sodium Chloride (Normal Saline -) 250 mls @ 3,000 mls/hr IV PRN PRN PRN Reason: Hypotension during Dialysis Stop: 11/21/19 14:23 Sodium Chloride (Normal Saline -) 250 mls @ 3,000 mls/hr IV PRN PRN PRN Reason: Hypotension during Dialysis Stop: 11/22/19 12:16 Lactulose (Cephulac (Rectal Use)) 200 gm AK TID [facility] Last Admin: 11/21/19 05:11 Dose: 200 gm Documented by: Midodrine (Proamatine -) 5 mg PO BID-MID [facility] Last Admin: 11/20/19 17:23 Dose: Not Given Documented by: Pantoprazole Sodium (Protonix Iv) 40 mg IVPUSH DAILY [facility] Last Admin: 11/21/19 09:20 Dose: 40 mg Documented by: Phytonadione (Aqua Mephyton Injection -) 10 mg IVPB ONCE ONE Stop: 11/21/19 18:01 Sevelamer Carbonate (Renvela -) 1,600 mg PO TIDCM [facility] Last Admin: 11/21/19 09:17 Dose: Not Given Documented by: Sevelamer Carbonate (Renvela -) 1,600 mg PO 2100 [facility] Last Admin: 11/20/19 21:40 Dose: Not Given Documented by: - Objective Vital Signs: Vital Signs Temperature 97.6 F 11/21/19 10:00 Pulse Rate 94 H 11/21/19 13:37 Respiratory Rate 18 11/21/19 13:37 Blood Pressure 90/45 L 11/21/19 13:37 O2 Sat by Pulse Oximetry (%) 96 11/21/19 09:00 Constitutional: Yes: Well Nourished, No Distress, Calm Cardiovascular: Yes: Regular Rate and Rhythm Respiratory: Yes: Regular, CTA Bilaterally Gastrointestinal: Yes: Soft, Ascites, Hypoactive Bowel Sounds Genitourinary: Yes: Incontinence Musculoskeletal: Yes: Muscle Weakness Edema: No Peripheral Pulses WNL: Yes Neurological: Yes: Alert, Confusion Labs: CBC, BMP 11/21/19 07:05 11/21/19 07:05 INR, PTT INR 1.96 (0.83-1.09) H 11/21/19 07:05 Problem List - Problems (1) Liver metastasis Assessment/Plan: -Oncology consult -GI consult -Tumor markers elevated -MRI abd results + metastatic disease -IR to do liver biopsy and paracentesis once INR <1.5 -Monitor daily INR -Vit K 10 mg SQ daily + additional 10 mg IVPB later today -Spoke to Hematology, would speak to POA about whether to proceed with liver biopsy -renal diet -Overall poor prognosis -Pt DNR/DNI -Palliative care consult Problems reviewed: Yes Code(s): C78.7 - SECONDARY MALIG NEOPLASM OF LIVER AND INTRAHEPATIC BILE DUCT (2) Abdominal pain Assessment/Plan: -resolved -PPI -Pain management with acetaminophen Problems reviewed: Yes Code(s): R10.9 - UNSPECIFIED ABDOMINAL PAIN Qualifiers: Abdominal location: generalized Qualified Code(s): R10.84 - Generalized abdominal pain (3) Anemia Assessment/Plan: -Likely 2/2 to liver disease + CKD -B12, thyroid+ iron unremarkable -Stool OB negative -Monitor trend, transfuse only if Hg<7.0 to avoid fluid overload Problems reviewed: Yes Code(s): D64.9 - ANEMIA, UNSPECIFIED (4) Anxiety about health Assessment/Plan: -Pastoral care and psychotherapy ordered -Hold Alprazolam 0.25 mg po BID Problems reviewed: Yes Code(s): F41.8 - OTHER SPECIFIED ANXIETY DISORDERS (5) Hepatic encephalopathy Assessment/Plan: -Lactulose AK TID to have 3-4 BM's/day Problems reviewed: Yes Code(s): K72.90 - HEPATIC FAILURE, UNSPECIFIED WITHOUT COMA (6) Hypotension Assessment/Plan: -Midodrine+ Florinef -Monitor trend Problems reviewed: Yes Code(s): I95.9 - HYPOTENSION, UNSPECIFIED (7) ESRD (end stage renal disease) on dialysis Assessment/Plan: -Nephrology on [facility] Problems reviewed: Yes Code(s): N18.6 - END STAGE RENAL DISEASE; Z99.2 - DEPENDENCE ON RENAL DIALYSIS Assessment/Plan See problem list Spoke to KEESHA Mesa to update pt status.
[2019-11-21] MEDS: FLUDROCORTISONE ACETATE 0.1 MG TABLET (FP) PO SCH (14:14)
[2019-11-21] MEDS: MIDODRINE HCL 5 MG TABLET PO SCH ×2 (14:15→20:20)
[2019-11-21] MEDS: ACETAMINOPHEN 650 MG SUPP.RECT RC PRN (14:52)
--- NOTE | 2019-11-21 17:52 | PN ---
Progress Note, Physician Chief Complaint: Abdominal pain History of Present Illness: Seen and examined at the bedside awake and alert, more so then yesterday complains of discomfort, could not be specific s/p dialysis earlier today, no UF done - Current Medication List Current Medications: Active Medications Acetaminophen (Tylenol Suppository -) 650 mg RC Q6H PRN PRN Reason: FEVER Last Admin: 11/21/19 14:52 Dose: 650 mg Documented by: Bupropion HCl (Wellbutrin Xl -) 150 mg PO DAILY [facility] Last Admin: 11/21/19 14:14 Dose: 150 mg Documented by: Fludrocortisone Acetate (Florinef -) 0.2 mg PO DAILY [facility] Last Admin: 11/21/19 14:14 Dose: 0.2 mg Documented by: Sodium Chloride (Normal Saline -) 250 mls @ 3,000 mls/hr IV PRN PRN PRN Reason: Hypotension during Dialysis Stop: 11/22/19 12:16 Lactulose (Cephulac (Oral Use)) 20 gm PO TID [facility] Midodrine (Proamatine -) 5 mg PO BID-MID [facility] Last Admin: 11/21/19 14:15 Dose: 5 mg Documented by: Pantoprazole Sodium (Protonix Iv) 40 mg IVPUSH DAILY [facility] Last Admin: 11/21/19 09:20 Dose: 40 mg Documented by: Phytonadione (Aqua Mephyton Injection -) 10 mg IVPB ONCE ONE Stop: 11/21/19 18:01 Sevelamer Carbonate (Renvela -) 1,600 mg PO TIDCM [facility] Last Admin: 11/21/19 14:15 Dose: Not Given Documented by: Sevelamer Carbonate (Renvela -) 1,600 mg PO 2100 [facility] Last Admin: 11/20/19 21:40 Dose: Not Given Documented by: - Objective Vital Signs: Vital Signs Temperature 97.8 F 11/21/19 14:00 Pulse Rate 105 H 11/21/19 14:00 Respiratory Rate 18 11/21/19 14:00 Blood Pressure 101/70 11/21/19 14:00 O2 Sat by Pulse Oximetry (%) 96 11/21/19 09:00 Constitutional: Yes: No Distress HENT: Yes: Atraumatic Neck: Yes: Supple Cardiovascular: Yes: Regular Rate and Rhythm Respiratory: Yes: Regular Gastrointestinal: Yes: Soft, Distention, Tenderness Extremities: No: Cyanosis Edema: No Labs: CBC, BMP 11/21/19 07:05 11/21/19 07:05 INR, PTT INR 1.96 (0.83-1.09) H 11/21/19 07:05 Assessment/Plan 73 year old male with with history of ESRD on HD (MWF), atrial fibrilation on anticoagulation, hypertension, hyperlipidemia, anemia, heart failure presented with abdominal pain and found to have multiple masses on his liver. Last dialysis was yesterday. 1. ESRD on HD 2. Abdominal pain 3. Suspected metastatic disease to the liver 4. Anemia in setting of CKD 5. Hypertension 6. Hyperlipidemia 7. Hx of HF 8. Renal osteodystrophy s/p dialysis earlier today done for management of hyperkalemia and AMS Continue work up of liver lesions as per primary team anticipate dialysis tomorrow to maintain MWF schedule. Thank you Cory Bowden DO
[2019-11-21] MEDS ORDERED: PHYTONADIONE 10 MG/1 ML AMP IVPB ONE (18:00)
--- NOTE | 2019-11-21 18:04 | PN ---
Progress Note (short form) - Note Progress Note: Patient seen and examined during dialysis Thornton uncomfortable mentioned "wanted to " Last Vital Signs Temp Pulse Resp BP Pulse Ox 97.8 F 105 H 18 101/70 96 11/21/19 14:00 11/21/19 14:00 11/21/19 14:00 11/21/19 14:00 11/21/19 09:00 Cor: RSR, No murmurs, No gallops Lungs: Clear to P&A Abd: Soft, Normal bowel sounds, No organomegaly Ext:No significant edema 11/21/19 07:05 11/21/19 07:05 Current Medications Generic Name Dose Route Start Last Admin Trade Name Freq PRN Reason Stop Dose Admin Acetaminophen 650 mg 11/21/19 14:11 11/21/19 14:52 Tylenol Suppository - RC 650 mg Q6H PRN Administration FEVER Bupropion HCl 150 mg 11/14/19 10:00 11/21/19 14:14 Wellbutrin Xl - PO 150 mg DAILY [facility] Administration Fludrocortisone Acetate 0.2 mg 11/18/19 14:15 11/21/19 14:14 Florinef - PO 0.2 mg DAILY [facility] Administration Sodium Chloride 250 mls @ 3,000 mls/hr 11/21/19 12:17 Normal Saline - IV 11/22/19 12:16 PRN PRN Hypotension during Dialysis Sodium Chloride 250 mls @ 3,000 mls/hr 11/21/19 17:52 Normal Saline - IV 11/22/19 17:52 PRN PRN Hypotension during Dialysis Lactulose 20 gm 11/21/19 22:00 Cephulac (Oral Use) PO TID [facility] Midodrine 5 mg 11/18/19 14:19 11/21/19 14:15 Proamatine - PO 5 mg BID-MID [facility] Administration Pantoprazole Sodium 40 mg 11/21/19 10:00 11/21/19 09:20 Protonix Iv IVPUSH 40 mg DAILY [facility] Administration Phytonadione 10 mg 11/21/19 18:00 Aqua Mephyton Injection - IVPB 11/21/19 18:01 ONCE ONE Sevelamer Carbonate 1,600 mg 11/14/19 08:30 11/21/19 17:56 Renvela - PO Not Given TIDCM [facility] Sevelamer Carbonate 1,600 mg 11/14/19 21:00 11/20/19 21:40 Renvela - PO Not Given 2100 [facility] A/P 73 y/o gentleman admitted to evaluation of abdominal pain. He alludes to having an US performed while in [facility] that showed "spots on the liver". He takes eliquis, which he believes he took yesterday. There is no family history of colorectal cancer or other GI malignancy. CTA was performed revealing a liver with innumerable lesions. The radiologist described this as almost complete replacement of the liver with metastatic disease. Upper abdominal lymphadenopathy seen as well and areas of colon wall thickening of unclear etiology. Cirrhosis/liver nodules/ britt hepatis and retroperitoneal adenopathy. Lt. paraaortic /britt hepatis and retroperitoneal adenopathy splenic hypodensity on CT scan? embolic CEA and CA19.9 highly elevated Coagulopathic ? liver disease Eliquis on hold Lovenox on hold Getting Vit. K Altered mental status : improving. CT Head negative. Neuro consult appreciated Consult palliative care team
[2019-11-21] MEDS ORDERED: ALBUTEROL SO4 2.5/IPRATROPIUM 0.5 INH SOL 3 ML VIAL.NEB. NEB PRN (18:34)
[2019-11-21] MEDS: LACTULOSE 20 GM/30 ML UDC (FOR ORAL USE ONLY) PO SCH (21:24)
[2019-11-22] MEDS: ACETAMINOPHEN 650 MG SUPP.RECT RC PRN ×2 (01:36→14:03)
[2019-11-22] MEDS: LACTULOSE 20 GM/30 ML UDC (FOR ORAL USE ONLY) PO SCH ×3 (05:14→21:27)
[2019-11-22 06:55] LABS: BASO % 0.9 % (0-2.0); EOS % 1.7 % (0-4.5); HEMATOCRIT 32.9 % (35.4-49); HEMOGLOBIN 9.9 GM/dL (11.7-16.9); LYMPH % 5.6 % (8-40); MCH 26.9 pg (25.7-33.7); MCHC 30.1 g/dl (32.0-35.9); MEAN CELL VOLUME 89.6 fl (80-96); MEAN PLT VOLUME 8.2 fl (7.5-11.1); MONO % 5.1 % (3.8-10.2); NEUT % 86.7 % (42.8-82.8); PLATELET COUNT 99 K/MM3 (134-434); RBC 3.67 M/mm3 (4.00-5.60); RDW 20.3 % (11.9-15.9); WHITE BLOOD COUNT 11.1 K/mm3 (4.0-10.0)
[2019-11-22 07:44] LABS: ALBUMIN 2.7 g/dl (3.4-5.0); BLOOD UREA NITROGEN 61.9 mg/dL (7-18); CALCIUM 8.7 mg/dL (8.5-10.1); PHOSPHOROUS 7.3 mg/dL (2.5-4.9); POTASSIUM 4.9 mmol/L (3.5-5.1); TOT PROT 5.6 g/dl (6.4-8.2)
[2019-11-22 07:52] LABS: CREATININE 10.2 mg/dL (0.55-1.3)
[2019-11-22] MEDS: MIDODRINE HCL 5 MG TABLET PO SCH ×2 (09:13→18:35)
[2019-11-22] MEDS: ALBUMIN HUMAN 25% 12.5 GM/50 ML VIAL IVPB SCH ×3 (09:35→11:52)
[2019-11-22] MEDS ORDERED: SODIUM CHLORIDE 250 ML IV PRN ×2 (10:00→10:40)
--- NOTE | 2019-11-22 10:01 | PN ---
Progress Note, Physician History of Present Illness: CTAP multiple liver lesions likely metastatic disease Awaiting IR to perform liver biopsy once INR <1.5 Last Eliquis dose on 11/13/19, on Lovenox BID Received Vitamin K 5 mg po once MRI abd: Markedly limited exam of poor diagnostic value due to significant motion and lack of IV contrast. Within the limitations of the exam, markedly heterogeneous and nodular liver is noted with honeycombing could be secondary to advanced liver cirrhosis with nodular regeneration however scattered foci of restricted diffusion seen suspicious for dysplastic or neoplastic lesions. Underlying infiltrate neoplastic disease cannot be excluded. Contrast is suggested for better evaluation. Nonspecific britt hepatis and retroperitoneal adenopathy which could be reactive, neoplastic/metastatic or lymphoproliferative disorder. Third spacing suggested by diffuse subcutaneous and mesenteric edema and small perihepatic and perisplenic ascites. Splenomegaly - portal hypertension. 1.4 cm pancreatic neck/proximal pancreatic tail lesion with corresponding nodule seen on CT scan. This is of indeterminate nature and not characterized on this exam. This could represent pancreatic neoplasm or an adjacent lymph node. Follow-up is recommended. Intra and extrahepatic biliary tree not visualized possibly due to nondistention from lack of appreciable bile secondary to hepatic failure. Severely atrophic right kidney. 3.5 cm left renal cyst. AMS over the weekend CT head unremarkable NAD today Much more awake Knows his name, his god daughter's name and that he's in the hospital Ammonia Levels trending down Had dialysis today INR still at 1.96 after giving him Vit K 20 mcg SQ yesterday - Current Medication List Current Medications: Active Medications Acetaminophen (Tylenol Suppository -) 650 mg RC Q6H PRN PRN Reason: FEVER Last Admin: 11/22/19 01:36 Dose: 650 mg Documented by: Albuterol/Ipratropium (Duoneb -) 1 amp NEB Q4H PRN PRN Reason: SHORTNESS OF BREATH Last Admin: 11/21/19 18:56 Dose: 1 amp Documented by: Bupropion HCl (Wellbutrin Xl -) 150 mg PO DAILY [facility] Last Admin: 11/21/19 14:14 Dose: 150 mg Documented by: Fludrocortisone Acetate (Florinef -) 0.2 mg PO DAILY [facility] Last Admin: 11/21/19 14:14 Dose: 0.2 mg Documented by: Sodium Chloride (Normal Saline -) 250 mls @ 3,000 mls/hr IV PRN PRN PRN Reason: Hypotension during Dialysis Stop: 11/22/19 12:16 Sodium Chloride (Normal Saline -) 250 mls @ 3,000 mls/hr IV PRN PRN PRN Reason: Hypotension during Dialysis Stop: 11/22/19 17:52 Lactulose (Cephulac (Oral Use)) 20 gm PO TID [facility] Last Admin: 11/22/19 05:14 Dose: 20 gm Documented by: Midodrine (Proamatine -) 5 mg PO BID-MID [facility] Last Admin: 11/22/19 09:13 Dose: 5 mg Documented by: Pantoprazole Sodium (Protonix Iv) 40 mg IVPUSH DAILY [facility] Last Admin: 11/21/19 09:20 Dose: 40 mg Documented by: Sevelamer Carbonate (Renvela -) 1,600 mg PO TIDCM [facility] Last Admin: 11/21/19 17:56 Dose: Not Given Documented by: Sevelamer Carbonate (Renvela -) 1,600 mg PO 2100 [facility] Last Admin: 11/21/19 21:28 Dose: Not Given Documented by: - Objective Vital Signs: Vital Signs Temperature 97.0 F L 11/22/19 09:21 Pulse Rate 105 H 11/22/19 09:21 Respiratory Rate 18 11/22/19 09:21 Blood Pressure 96/67 11/22/19 09:21 O2 Sat by Pulse Oximetry (%) 95 11/21/19 21:00 Labs: CBC, BMP 11/22/19 06:40 11/22/19 06:40 INR, PTT INR 1.96 (0.83-1.09) H 11/21/19 07:05 Assessment/Plan - Problems (1) Liver metastasis Assessment/Plan: -Oncology consult -GI consult -Tumor markers elevated -MRI abd results + metastatic disease -IR to do liver biopsy and paracentesis once INR <1.5 -Monitor daily INR -Vit K 10 mg SQ daily + additional 10 mg IVPB later today -Hematology, would speak to POA about whether to proceed with liver biopsy -renal diet -Overall poor prognosis -Pt DNR/DNI -Palliative care consult Problems reviewed: Yes Code(s): C78.7 - SECONDARY MALIG NEOPLASM OF LIVER AND INTRAHEPATIC BILE DUCT (2) Abdominal pain Assessment/Plan: -resolved -PPI -Pain management with acetaminophen Problems reviewed: Yes Code(s): R10.9 - UNSPECIFIED ABDOMINAL PAIN Qualifiers: Abdominal location: generalized Qualified Code(s): R10.84 - Generalized abdominal pain (3) Anemia Assessment/Plan: -Likely 2/2 to liver disease + CKD -B12, thyroid+ iron unremarkable -Stool OB negative -Monitor trend, transfuse only if Hg<7.0 to avoid fluid overload Problems reviewed: Yes Code(s): D64.9 - ANEMIA, UNSPECIFIED (4) Anxiety about health Assessment/Plan: -Pastoral care and psychotherapy ordered -Hold Alprazolam 0.25 mg po BID Problems reviewed: Yes Code(s): F41.8 - OTHER SPECIFIED ANXIETY DISORDERS (5) Hepatic encephalopathy Assessment/Plan: -Lactulose [place] TID to have 3-4 BM's/day Problems reviewed: Yes Code(s): K72.90 - HEPATIC FAILURE, UNSPECIFIED WITHOUT COMA (6) Hypotension Assessment/Plan: -Midodrine+ Florinef -Monitor trend Problems reviewed: Yes Code(s): I95.9 - HYPOTENSION, UNSPECIFIED (7) ESRD (end stage renal disease) on dialysis Assessment/Plan: -Nephrology [facility] [address] [facility] Problems reviewed: Yes Code(s): N18.6 - END STAGE RENAL DISEASE; Z99.2 - DEPENDENCE ON RENAL DIALYSIS
[2019-11-22 10:52] LABS: INR 2.22 (0.83-1.09); PROTHROMBIN TIME (PATIENT) 26.4 SEC (9.7-13.0)
[2019-11-22] MEDS: SEVELAMER CARBONATE 800 MG TAB (FP) PO SCH ×4 (11:07→21:27)
[2019-11-22] MEDS: FLUDROCORTISONE ACETATE 0.1 MG TABLET (FP) PO SCH (14:01)
[2019-11-22] MEDS: PANTOPRAZOLE SODIUM 40 MG VIAL IVPUSH SCH (14:02)
[2019-11-22] MEDS: MORPHINE SULFATE 2 MG/ML VIAL IVPUSH PRN ×2 (15:53→20:03)
--- NOTE | 2019-11-22 17:09 | PN ---
Progress Note, Physician Chief Complaint: Abdominal pain History of Present Illness: Seen and examined during dialysis BP has been low but tolerated treatment required albumin x 2 pt was restless during the treatment, pulled his needle once access working well - Current Medication List Current Medications: Active Medications Acetaminophen (Tylenol Suppository -) 650 mg RC Q6H PRN PRN Reason: FEVER Last Admin: 11/22/19 14:03 Dose: 650 mg Documented by: Albuterol/Ipratropium (Duoneb -) 1 amp NEB Q4H PRN PRN Reason: SHORTNESS OF BREATH Last Admin: 11/21/19 18:56 Dose: 1 amp Documented by: Bupropion HCl (Wellbutrin Xl -) 150 mg PO DAILY [facility] Last Admin: 11/22/19 14:01 Dose: 150 mg Documented by: Fludrocortisone Acetate (Florinef -) 0.2 mg PO DAILY [facility] Last Admin: 11/22/19 14:01 Dose: 0.2 mg Documented by: Sodium Chloride (Normal Saline -) 250 mls @ 3,000 mls/hr IV PRN PRN PRN Reason: Hypotension during Dialysis Stop: 11/23/19 10:39 Lactulose (Cephulac (Oral Use)) 20 gm PO TID [facility] Last Admin: 11/22/19 14:01 Dose: 20 gm Documented by: Midodrine (Proamatine -) 5 mg PO BID-MID [facility] Last Admin: 11/22/19 09:13 Dose: 5 mg Documented by: Morphine Sulfate (Morphine Sulfate) 1 mg IVPUSH Q4H PRN PRN Reason: PAIN 5-10 Last Admin: 11/22/19 15:53 Dose: 1 mg Documented by: Pantoprazole Sodium (Protonix Iv) 40 mg IVPUSH DAILY [facility] Last Admin: 11/22/19 14:02 Dose: 40 mg Documented by: Sevelamer Carbonate (Renvela -) 1,600 mg PO TIDCM [facility] Last Admin: 11/22/19 13:53 Dose: Not Given Documented by: Sevelamer Carbonate (Renvela -) 1,600 mg PO 2100 [facility] Last Admin: 11/21/19 21:28 Dose: Not Given Documented by: - Objective Vital Signs: Vital Signs Temperature 98.1 F 11/22/19 14:00 Pulse Rate 104 H 07/08/20 14:00 Respiratory Rate 20 11/21/20 14:00 Blood Pressure 107/64 11/22/19 14:00 O2 Sat by Pulse Oximetry (%) 95 11/22/19 09:00 Constitutional: Yes: No Distress Neck: Yes: Supple Cardiovascular: Yes: Regular Rate and Rhythm Respiratory: Yes: Regular Gastrointestinal: Yes: Soft, Distention, Tenderness Extremities: No: Cyanosis Edema: No Neurological: Yes: Alert, Confusion Labs: CBC, BMP 11/22/19 06:40 11/22/19 06:40 INR, PTT INR 2.22 (0.83-1.09) H 11/22/19 09:35 Assessment/Plan 73 year old male with with history of ESRD on HD (MWF), atrial fibrilation on anticoagulation, hypertension, hyperlipidemia, anemia, heart failure presented with abdominal pain and found to have multiple masses on his liver. Last dialysis was yesterday. 1. ESRD on HD 2. Abdominal pain 3. Suspected metastatic disease to the liver 4. Anemia in setting of CKD 5. Hypertension 6. Hyperlipidemia 7. Hx of HF 8. Renal osteodystrophy Tolerated dialysis today. Next planned dialysis is Wednesday. Continue BRAIN with HD for anemia management Continue work up of liver lesions as per primary team Thank you Cory Bowden DO
[2019-11-22] MEDS ORDERED: ACETAMINOPHEN 1000 MG/100 ML VIAL (NON FORMULARY) IVPB ONE (21:54)
[2019-11-23] MEDS: MORPHINE SULFATE 2 MG/ML VIAL IVPUSH PRN ×4 (00:13→16:36)
[2019-11-23] MEDS: ACETAMINOPHEN 650 MG SUPP.RECT RC PRN (02:18)
[2019-11-23] MEDS ORDERED: HYDROmorphone HCl 2 MG/ML VIAL IVPUSH ONE (04:39)
[2019-11-23] MEDS ORDERED: HYDROmorphone HCl 2 MG/ML VIAL IVPB ONE (04:49)
[2019-11-23] MEDS: LACTULOSE 20 GM/30 ML UDC (FOR ORAL USE ONLY) PO SCH (05:44)
--- NOTE | 2019-11-23 07:53 | PN ---
Progress Note, Physician - Current Medication List Current Medications: Active Medications Acetaminophen (Tylenol Suppository -) 650 mg RC Q6H PRN PRN Reason: FEVER Last Admin: 11/23/19 02:18 Dose: 650 mg Documented by: Albuterol/Ipratropium (Duoneb -) 1 amp NEB Q4H PRN PRN Reason: SHORTNESS OF BREATH Last Admin: 11/21/19 18:56 Dose: 1 amp Documented by: Bupropion HCl (Wellbutrin Xl -) 150 mg PO DAILY [facility] Last Admin: 11/22/19 14:01 Dose: 150 mg Documented by: Fludrocortisone Acetate (Florinef -) 0.2 mg PO DAILY [facility] Last Admin: 11/22/19 14:01 Dose: 0.2 mg Documented by: Sodium Chloride (Normal Saline -) 250 mls @ 3,000 mls/hr IV PRN PRN PRN Reason: Hypotension during Dialysis Stop: 11/23/19 10:39 Lactulose (Cephulac (Oral Use)) 20 gm PO TID [facility] Last Admin: 11/23/19 05:44 Dose: Not Given Documented by: Midodrine (Proamatine -) 5 mg PO BID-MID [facility] Last Admin: 11/22/19 18:35 Dose: Not Given Documented by: Morphine Sulfate (Morphine Sulfate) 1 mg IVPUSH Q4H PRN PRN Reason: PAIN 5-10 Last Admin: 11/23/19 04:15 Dose: 1 mg Documented by: Pantoprazole Sodium (Protonix Iv) 40 mg IVPUSH DAILY [facility] Last Admin: 11/22/19 14:02 Dose: 40 mg Documented by: Sevelamer Carbonate (Renvela -) 1,600 mg PO TIDCM [facility] Last Admin: 11/22/19 18:10 Dose: Not Given Documented by: Sevelamer Carbonate (Renvela -) 1,600 mg PO 2100 [facility] Last Admin: 11/22/19 21:27 Dose: Not Given Documented by: - Objective Vital Signs: Vital Signs Temperature 97.5 F L 11/23/19 06:00 Pulse Rate 118 H 11/23/19 06:00 Respiratory Rate 20 11/23/19 06:00 Blood Pressure 127/70 11/23/19 06:00 O2 Sat by Pulse Oximetry (%) 96 11/22/19 21:00 Cardiovascular: Yes: S1, S2 Respiratory: Yes: Regular, CTA Bilaterally Gastrointestinal: Yes: Normal Bowel Sounds, Soft Labs: CBC, BMP 11/22/19 06:40 11/22/19 06:40 INR, PTT INR 2.22 (0.83-1.09) H 11/22/19 09:35 Assessment/Plan - Problems (1) Liver metastasis Assessment/Plan: -Oncology consult -GI consult -Tumor markers elevated -MRI abd results + metastatic disease -IR to do liver biopsy and paracentesis once INR <1.5 -Monitor daily INR -Vit K 10 mg SQ daily + additional 10 mg IVPB later today -Hematology, would speak to POA about whether to proceed with liver biopsy -renal diet -Overall poor prognosis -Pt DNR/DNI -Palliative care consult--comfort care Problems reviewed: Yes Code(s): C78.7 - SECONDARY MALIG NEOPLASM OF LIVER AND INTRAHEPATIC BILE DUCT (2) Abdominal pain Assessment/Plan: -resolved -PPI -Pain management with acetaminophen Problems reviewed: Yes Code(s): R10.9 - UNSPECIFIED ABDOMINAL PAIN Qualifiers: Abdominal location: generalized Qualified Code(s): R10.84 - Generalized abdominal pain (3) Anemia Assessment/Plan: -Likely 2/2 to liver disease + CKD -B12, thyroid+ iron unremarkable -Stool OB negative -Monitor trend, transfuse only if Hg<7.0 to avoid fluid overload Problems reviewed: Yes Code(s): D64.9 - ANEMIA, UNSPECIFIED (4) Anxiety about health Assessment/Plan: -Pastoral care and psychotherapy ordered -Hold Alprazolam 0.25 mg po BID Problems reviewed: Yes Code(s): F41.8 - OTHER SPECIFIED ANXIETY DISORDERS (5) Hepatic encephalopathy Assessment/Plan: -Lactulose [place] TID to have 3-4 BM's/day Problems reviewed: Yes Code(s): K72.90 - HEPATIC FAILURE, UNSPECIFIED WITHOUT COMA (6) Hypotension Assessment/Plan: -Midodrine+ Florinef -Monitor trend Problems reviewed: Yes Code(s): I95.9 - HYPOTENSION, UNSPECIFIED (7) ESRD (end stage renal disease) on dialysis Assessment/Plan: -Nephrology [place] Problems reviewed: Yes Code(s): N18.6 - END STAGE RENAL DISEASE; Z99.2 - DEPENDENCE ON RENAL DIALYSIS
[2019-11-23] MEDS: SEVELAMER CARBONATE 800 MG TAB (FP) PO SCH ×2 (08:42→11:31)
[2019-11-23] MEDS: FLUDROCORTISONE ACETATE 0.1 MG TABLET (FP) PO SCH (10:18)
[2019-11-23] MEDS: MIDODRINE HCL 5 MG TABLET PO SCH (10:18)
[2019-11-23] MEDS: PANTOPRAZOLE SODIUM 40 MG VIAL IVPUSH SCH (10:18)
--- NOTE | 2019-11-23 11:20 | PN ---
Progress Note (short form) - Note Progress Note: Awake and responsive, NAD. No CP or SOB. No acute events overnight. Intake & Output 11/20/19 11/21/19 11/22/19 11/23/19 23:59 23:59 23:59 23:59 Intake Total 348 430 6957 Output Total 321 350 Balance 250 134 3125 Weight 266 lb 9.6 oz 220 lb 220 lb 4 oz Last Vital Signs Temp Pulse Resp BP Pulse Ox 97.5 F L 118 H 20 127/70 96 11/23/19 06:00 11/23/19 06:00 11/23/19 06:00 11/23/19 06:00 11/22/19 21:00 Active Medications Acetaminophen (Tylenol Suppository -) 650 mg RC Q6H PRN PRN Reason: FEVER Last Admin: 11/23/19 02:18 Dose: 650 mg Documented by: Albuterol/Ipratropium (Duoneb -) 1 amp NEB Q4H PRN PRN Reason: SHORTNESS OF BREATH Last Admin: 11/21/19 18:56 Dose: 1 amp Documented by: Bupropion HCl (Wellbutrin Xl -) 150 mg PO DAILY [facility] Last Admin: 11/23/19 10:19 Dose: 150 mg Documented by: Fludrocortisone Acetate (Florinef -) 0.2 mg PO DAILY [facility] Last Admin: 11/23/19 10:18 Dose: 0.2 mg Documented by: Lactulose (Cephulac (Oral Use)) 20 gm PO TID [facility] Last Admin: 11/23/19 05:44 Dose: Not Given Documented by: Midodrine (Proamatine -) 5 mg PO BID-MID [facility] Last Admin: 11/23/19 10:18 Dose: 5 mg Documented by: Morphine Sulfate (Morphine Sulfate) 1 mg IVPUSH Q4H PRN PRN Reason: PAIN 5-10 Last Admin: 11/23/19 04:15 Dose: 1 mg Documented by: Pantoprazole Sodium (Protonix Iv) 40 mg IVPUSH DAILY [facility] Last Admin: 11/23/19 10:18 Dose: 40 mg Documented by: Sevelamer Carbonate (Renvela -) 1,600 mg PO TIDCM [facility] Last Admin: 11/23/19 08:42 Dose: Not Given Documented by: Sevelamer Carbonate (Renvela -) 1,600 mg PO 2100 [facility] Last Admin: 11/22/19 21:27 Dose: Not Given Documented by: Gen: NAD Heart: S1S2 Lung: decreased breath sounds at the bases Abd: soft, nontender Ext: no edema ASSESSMENT AND PLAN: Hypotension of unclear etiology : resolving Suspect Metastatic disease from GI origin Elevated LFTs likely from above ESRD on HD Atrial Fibrillation PAD HTN Hyperlipidemia Anemia Thrombocytopenia - Follow cytology - HD per renal - continue midodrine - aspiration precautions - DVT prophylaxis - DNR / DNI Dr Medrano
--- NOTE | 2019-11-23 11:30 | PN ---
Teaching Attending Note Left message with health care proxy to call me to d
--- NOTE | 2019-11-23 11:36 | PN.HO ---
Progress Note (short form) - Note Progress Note: Called patients health care proxy they had family discussions and meeting and patient has decided on [facility] palliative care team to coordinate
[2019-11-23 13:53] VITALS: BP 97/60; PULSE 134; TEMP 99.5
--- NOTE | 2019-11-23 16:06 | PN ---
Progress Note, Physician Chief Complaint: Abdominal pain History of Present Illness: Seen and examined at the bedside. Patient is awake and alert but somewhat confused. Patient was very agitated prior to receiving Dilaudid for pain. Patient is now comfort measures only as per the decision made by family. Last dialysis was yesterday. - Current Medication List Current Medications: Active Medications Acetaminophen (Tylenol Suppository -) 650 mg RC Q6H PRN PRN Reason: FEVER Last Admin: 11/23/19 02:18 Dose: 650 mg Documented by: Albuterol/Ipratropium (Duoneb -) 1 amp NEB Q4H PRN PRN Reason: SHORTNESS OF BREATH Last Admin: 11/21/19 18:56 Dose: 1 amp Documented by: Morphine Sulfate (Morphine Sulfate) 1 mg IVPUSH Q4H PRN PRN Reason: PAIN 5-10 Last Admin: 11/23/19 11:55 Dose: 1 mg Documented by: Pantoprazole Sodium (Protonix Iv) 40 mg IVPUSH DAILY [facility] Last Admin: 11/23/19 10:18 Dose: 40 mg Documented by: - Objective Vital Signs: Vital Signs Temperature 99.5 F 11/23/19 13:52 Pulse Rate 134 H 11/23/19 13:52 Respiratory Rate 9 L 11/23/19 13:52 Blood Pressure 97/60 11/23/19 13:52 O2 Sat by Pulse Oximetry (%) 91 L 11/23/19 09:00 Constitutional: Yes: No Distress Neck: Yes: Supple Cardiovascular: Yes: Regular Rate and Rhythm Respiratory: Yes: Regular, Diminished Gastrointestinal: Yes: Soft, Distention, Tenderness Extremities: No: Cyanosis Edema: No Labs: CBC, BMP 11/22/19 06:40 11/22/19 06:40 INR, PTT INR 2.22 (0.83-1.09) H 11/22/19 09:35 Assessment/Plan 73 year old male with with history of ESRD on HD (MWF), atrial fibrilation on anticoagulation, hypertension, hyperlipidemia, anemia, heart failure presented with abdominal pain and found to have multiple masses on his liver. Last dialysis was yesterday. 1. ESRD on HD 2. Abdominal pain 3. Suspected metastatic disease to the liver 4. Anemia in setting of CKD 5. Hypertension 6. Hyperlipidemia 7. Hx of HF 8. Renal osteodystrophy Patient is clinically overall deteriorating. Patient received dialysis yesterday for management of hyperkalemia and suspected hepatic encephalopathy. As per family's wishes patient is now comfort measures only. We will discontinue dialysis at this time. Continue pain control as per the recommendations of palliative care. Please call if there is any change in clinical plan her clinical status. We will follow-up as needed. Thank you Cory Bowden DO
--- NOTE | 2019-11-23 18:16 | HOSP ---
Subjective - Review of Symptoms General: Yes: Other Physical Examination Vital Signs: Vital Signs Temperature 99.5 F 11/23/19 13:52 Pulse Rate 134 H 11/23/19 13:52 Respiratory Rate 9 L 11/23/19 13:52 Blood Pressure 97/60 11/23/19 13:52 O2 Sat by Pulse Oximetry (%) 91 L 11/23/19 09:00 Constitutional: Yes: Other Labs: CBC, BMP 11/22/19 06:40 11/22/19 06:40 Hospitalist Encounter Assessment: note: Called by primary RN to see patient as he was found pulseless Patient not responsive to tactile or verbal stimuli pupils fixed and dilated Patient without pulse or respiration patient is a dnr/dni time of 18:10 (6:10pm) date of : 11/23/2019 Bonita Bojorquez, power of workers compensation defense attorney informed via telephone PCP Dr. Espinal informed jovany conley hvac manager, [place] [phone]
== END 2019-11-23 18:10 | disposition expired | DRG 435 ==
LOC: JER 18:14 → JERBED 22:46 → J6WEST-2 11-14 09:51 → J5S 11-18 20:55
PROVIDERS: ADMIT Internal Medicine; ATTEND Family Medicine
PROC: 5A1D70Z Performance of Urinary Filtration, Intermittent, Less than 6 Hours Per Day (ICD-10-PCS; principal; 2019-11-15)
PROC: 5A1D70Z Performance of Urinary Filtration, Intermittent, Less than 6 Hours Per Day (ICD-10-PCS; 2019-11-17)
PROC: 5A1D70Z Performance of Urinary Filtration, Intermittent, Less than 6 Hours Per Day (ICD-10-PCS; 2019-11-20)
PROC: 5A1D70Z Performance of Urinary Filtration, Intermittent, Less than 6 Hours Per Day (ICD-10-PCS; 2019-11-21)
PROC: 5A1D70Z Performance of Urinary Filtration, Intermittent, Less than 6 Hours Per Day (ICD-10-PCS; 2019-11-22)
DX: C78.7 Secondary malignant neoplasm of liver and intrahepatic bile duct (principal); N18.6 End stage renal disease; R18.8 Other ascites; E87.2 Acidosis; E46 Unspecified protein-calorie malnutrition; Q60.0 Renal agenesis, unilateral; D68.9 Coagulation defect, unspecified; I12.0 Hypertensive chronic kidney disease with stage 5 chronic kidney disease or end stage renal disease; I48.91 Unspecified atrial fibrillation; E78.5 Hyperlipidemia, unspecified; D63.8 Anemia in other chronic diseases classified elsewhere; K59.09 Other constipation; F41.9 Anxiety disorder, unspecified; R74.0 Nonspecific elevation of levels of transaminase and lactic acid dehydrogenase [LDH]; E87.5 Hyperkalemia; D69.6 Thrombocytopenia, unspecified; K72.90 Hepatic failure, unspecified without coma; I95.9 Hypotension, unspecified; N25.0 Renal osteodystrophy; N28.1 Cyst of kidney, acquired; Z68.29 Body mass index [BMI] 29.0-29.9, adult; L89.152 Pressure ulcer of sacral region, stage 2; I73.9 Peripheral vascular disease, unspecified; R59.0 Localized enlarged lymph nodes; G25.81 Restless legs syndrome; F41.8 Other specified anxiety disorders; F06.32 Mood disorder due to known physiological condition with major depressive-like episode; Z89.422 Acquired absence of other left toe(s); Z99.2 Dependence on renal dialysis
CPT/HCPCS: 36415; 36600; 70450-TC; 71045-TC-FY; 74174-TC; 74181-TC; 80048; 80053; 80307; 82105; 82140; 82272; 82378; 82607; 82803; 83605; 83690; 83735; 84100; 84439; 84443; 85025; 85610; 86301; 86704; 86706; 86707; 86708; 86709; 86850; 86900; 86901; 87040; 87340; 87389; 87522; 93005; 93010; 94640; 97116-GP; 97162-GP; 99285-25; J0131; P9047; Q5106; U0003